=== PATIENT | female | born 1995 | race Caucasian/White ===

== ENCOUNTER 2023-09-07 20:39 | Outpatient (REF) | payer OTHER, SELFPAY ==
[2023-09-12 10:09] LABS: Age Gdln ACOG Testing Note (.); HPV Aptima Negative (Negative); IGP, Aptima HPV, rfx 16/18,45 Note (.)
== END 2023-09-07 20:40 | disposition home or self-care (01) ==
LOC: LAB 20:39
PROVIDERS: Visit Provider Physician Assistant
DX: Z01.419 Encounter for gynecological examination (general) (routine) without abnormal findings (principal)
CPT/HCPCS: 87624; G0145

== ENCOUNTER 2024-09-12 18:47 | Outpatient (REF) | payer OTHER, SELFPAY ==
--- OUTSIDE RECORDS SUMMARY | 2024-09-12 18:52 | XMS_ITS | CCD ---
Author Organization [facility] Care Team Providers Care Shank Taper Name Role Phone Kim Rincon Primary Care Physician Unavail able Mary Carmen CUELLAR Unavailable MELISSA, DR CRESPO Attending Unavailable REQUEST, NONE LISTED Primary Care Unavaila ble MELISSA, DR CRESPO Consulting Unavailable MELISSA, DR CRESPO Admitting Unavailable MELISSA, DR CRESPO Attending Unavailable REQUEST, NONE LISTED Primary Care Unavaila ble MELISSA, DR CRESPO Admitting Unavailable MELISSA, DR CRESPO Attending Unavailable REQUEST, DR NONE LISTED Primary Care Unavaila ble MELISSA, DR CRESPO Consulting Unavailable MELISSA, DR CRESPO Admitting Unavailable DANE TEMPLE Consulting Unavailable FILUTZERAVINDRA Consulting Unavailable NONE, XXXX Primary Care Physician Unavailab Lynnette Pedroza Primary Care Physician GERHARD SMALL Attending Unavailable YUKILEISA Attending Unavailable GERHARD SMALL Attending Unavailable GERHARD SMALL Attending Unavailable GERHARD SMALL Referring Unavailable GERHARD SMALL Attending Unavailable Lynnette Dean Attending Unavailable Lynnette Dean Admitting Unavailable Lynnette Dean Attending Unavailable Lynnette Dean Attending Unavailable Lynnette Dean Attending Unavailable Lynnette Dean Attending Unavailable Lynnette Dean Attending Unavailable Lynnette Dean Attending Unavailable Lynnette Dean Attending Unavailable Lynnette Dean Attending Unavailable Antoinette HAWK Attending Unavailable Medications Current Medications Medication Drug Class(es) Dates Sig (Normalized) Sig (Original) dicyclomine hydrochloride 10 mg oral capsule (1 source) Anticholinergic Start: 01-20-2023 End: 01-27-2023 take 1 capsule by mouth four times daily as needed Bentyl 10 mg Cap 10 mg = 1 cap(s), Oral, QID, PRN Irritable bowel symptoms, X 7 day(s), # 28 cap(s), Refills(s) 0, Pharmacy: [id number], 162.6, cm, 01/19/23 21:48:00 EDT, Height/Length Dosing, 75, kg, 01/19/23 21:48:00 EDT, Weight Dosing Start Date: 01/20/23 Stop Date: 01/27/23 Status: Ordered Folic Acid (3 sources) Start: 03-18-2021 folic acid folic acid Start Date: 03/18/21 Status: Ordered naproxen 500 mg delayed release oral tablet (1 source) Nonsteroidal Anti-inflammatory Drug Start: 01-20-2023 take 1 tablet by mouth twice daily as needed for pain naproxen 500 mg oral enteric coated tablet 500 mg = 1 tab(s), Oral, BID, PRN Pain, # 14 tab(s), Refills(s) 0, Pharmacy: [email or web address], 162.6, cm, 01/19/23 21:48:00 EDT, Height/Length Dosing, 75, kg, 01/19/23 21:48:00 EDT, Weight Dosing Start Date: 01/20/23 Status: Ordered phentermine hydrochloride 37.5 mg oral tablet (3 sources) Sympathomimetic Amine Anorectic Start: 01-19-2024 take 1 tablet by mouth once daily Adipex-P 37.5 mg Tab 37.5 mg = 1 tab(s), Oral, Daily, # 30 tab(s), Refills(s) 0, Pharmacy: [email or web address], 162, cm, 01/19/24 7:44:00 EDT, Height/Length Dosing, 72.9, kg, 01/19/24 7:44:00 EDT, Weight Dosing Start Date: 01/19/24 Status: Ordered Start: 12-22-2023 take 1 tablet by espinoza once daily Adipex-P 37.5 mg Tab 37.5 mg = 1 tab(s), Oral, Daily, # 30 tab(s), Refills(s) 0, Pharmacy: [email or web address], 162, cm, 12/22/23 8:12:00 EDT, Height/Length Dosing, 74.6, kg, 12/22/23 8:12:00 EDT, Weight Dosing Start Date: 12/22/23 Status: Ordered Start: 11-13-2023 take 1 tablet by espinoza th once daily Adipex-P 37.5 mg Tab 37.5 mg = 1 tab(s), Oral, Daily, # 30 tab(s), Refills(s) 0, Pharmacy: [email or web address], 162, cm, 11/13/23 9:08:00 EDT, Height/Length Dosing, 79.9, kg, 11/13/23 9:08:00 EDT, Weight Dosing Start Date: 11/13/23 Status: Ordered Zofran ODT 4 mg Tab-Dis (1 source) Start: 01-20-2023 take 1 tablet by mouth every eight hours as needed for nausea Zofran ODT 4 mg Tab-Dis 4 mg = 1 tab(s), Oral, q8hr, PRN Nausea/Vomiting, # 16 tab(s), Refills(s) 0, Pharmacy: [email or web address], 162.6, cm, 01/19/23 21:48:00 EDT, Height/Length Dosing, 75, kg, 01/19/23 21:48:00 EDT, Weight Dosing Start Date: 01/20/23 Status: Ordered Completed/Discontinued Medications Medication Drug Class(es) Dates Sig (Normalized) Sig (Original) lisdexamfetamine dimesylate 20 mg oral capsule (3 sources) Central Nervous System Stimulant Start: 07-04-2024 take 1-12 capsules by mouth once daily in the morning Vyvanse 20 mg oral capsule 20 mg = 1 cap(s), Oral, qAM, Fill on 09-01-23, # 30 cap(s), Refills(s) 0, Pharmacy: [id number], 162, cm, 07/04/24 11:06:00 EST, Height/Length Dosing, 71.3, kg, 07/04/24 11:06:00 EST, Weight Dosing Start Date: 07/04/24 Status: Ordered Start: 04-01-2024 Vyvanse 20 mg oral capsule 20 mg = 1 cap(s), Oral, qAM, Fill on 05-30-24, # 30 cap(s), Refills(s) 0, Pharmacy: [id number], 162, cm, 04/01/24 14:02:00 EDT, Height/Length Dosing, 70.2, kg, 04/01/24 14:02:00 EDT, Weight Dosing Start Date: 04/01/24 Status: Ordered Start: 02-19-2024 take 1 capsule by [facility] once daily in the morning Vyvanse 20 mg oral capsule 20 mg = 1 cap(s), Oral, qAM, # 30 cap(s), Refills(s) 0, Pharmacy: [id number], 162, cm, 02/19/24 8:06:00 EDT, Height/Length Dosing, 70.6, kg, 02/19/24 8:06:00 EDT, Weight Dosing Start Date: 02/19/24 Status: Ordered Problems Active Problems Problem Classification Problem Date Documented Da te Episodic/Chronic Abdominal pain (1 source) Abdominal pain; Translations: [Unspecified abdominal pain] Onset: 01-20-2023 Episodic Adjustment disorders (2 sources) Stress and adjustment reaction; Translations: [Reaction to severe stress, unspecified] Onset: 10-23-2023 Chronic Administrative/social admission (20 sources) Patient encounter status; Translations: [Persons encountering health services in other specified circumstances] Onset: 10-23-2023 Episodic Anxiety disorders (10 sources) Panic disorder without agoraphobia; Translations: [Panic disorder [episodic paroxysmal anxiety]] Onset: 10-23-2023 Chronic Contraceptive and procreative management (5 sources) Encounter for sterilization; Translations: [ENCOUNTER FOR STERILIZATION] Onset: 09-07-2022 Episodic Malaise and fatigue (9 sources) Fatigue; Translations: [Other fatigue] Onset: 10-23-2023 Episodic Mood disorders (8 sources) Depressive disorder; Translations: [Depression, unspecified] Onset: 12-22-2023 Chronic Nutritional deficiencies (7 sources) Vitamin D deficiency; Translations: [Vitamin D deficiency, unspecified] Onset: 11-13-2023 Chronic Other diseases of bladder and urethra (11 sources) Urethral stricture 10-15-2021 Episodic Other female genital disorders (1 source) Unspecified dyspareunia; Translations: [UNSPECIFIED DYSPAREUNIA] Onset: 09-13-2022 Chronic Other gastrointestinal disorders (4 sources) Diarrhea; Translations: [Diarrhea, unspecified] Onset: 02-19-2024 Episodic Other nutritional; endocrine; and metabolic disorders (3 sources) Obese class I; Translations: [Body mass index (BMI) 30.0-30.9, adult] Onset: 10-23-2023 Chronic Other nutritional; endocrine; and metabolic disorders (8 sources) Obesity; Translations: [Obesity, unspecified] Onset: 10-23-2023 Chronic Other nutritional; endocrine; and metabolic disorders (1 source) Abnormal weight gain; Translations: [Abnormal weight gain] Onset: 10-23-2023 Episodic Other nutritional; endocrine; and metabolic disorders (8 sources) Weight gain 10-23-2023 Episodic Other nutritional; endocrine; and metabolic disorders (5 sources) Excessive eating - polyphagia; Translations: [Polyphagia] Onset: 11-13-2023 Episodic Other nutritional; endocrine; and metabolic disorders (5 sources) Overweight in adulthood with body mass index of 25 or more but less than 30; Translations: [Body mass index (BMI) 28.0-28.9, adult] Onset: 12-22-2023 Episodic Other nutritional; endocrine; and metabolic disorders (10 sources) Overweight; Translations: [Overweight] Onset: 12-22-2023 Episodic Residual codes; unclassified (6 sources) Insomnia; Translations: [Insomnia, unspecified] Onset: 12-22-2023 Episodic Unclassified (1 source) CONTACT W/AND (SUSP) EXPOS COVID-19; Translations: [CONTACT W/AND (SUSP) EXPOS COVID-19] Onset: 09-12-2022 Unclassified (14 sources) Patient encounter status 10-23-2023 Unclassified (6 sources) Binge eating behavior 11-13-2023 Urinary tract infections (20 sources) Acute lower urinary tract infection; Translations: [Urinary tract infectious disease] 05-11-2021 Episodic Past or Other Problems Problem Classification Problem Date Documented Date Episodic/Chronic Unclassified (11 sources) Streptococcus agalactiae (organism) 12-07-2019 Unclassified (20 sources) Onset: 01-20-2012 Resolved: 05-29-2015 02-26-2015 Results Test Name Value Interpretation Reference Range Facility Ambulatory Visit Summaryon 1 1-14-2024 Ambulatory Visit Summary Ambulatory Visit Summary [facility] :1995 Visit Date:07/04/2024 Ambulatory Visit Instructions Your Diagnosis Binge eating BMI 27.0-27.9,adult Non-smoker Overweight Your Care Team Attending Physician - Lynnette Dean CNP Primary Care Physician - Lynnette Dean CNP This Is Your Medications List lisdexamfetamine (Vyvanse 20 mg oral capsule) Procedures Performed Cystoscopy, NONE. Discharge Vitals Heart Rate (Peripheral) 80 Respiratory Rate 16 Blood Pressure 108/68 Height 162 cm Height 64 in Weight 71.3 kg Weight 157.189 lb BMI 27.17 What to do next Scheduled Follow-Up Appointments Monday 9:20 AM EST With: Lynnette Dean CNP Where: [address] [address]- You Need to Schedule the Following Appointments Follow Up with Lynnette Dean CNP When: In 3 months Comments: medication review Where: Medications What How Much When Why Instructions Changed lisdexamfetamine (Vyvanse 20 mg oral capsule) 1 Capsules By Mouth Once a day (in the morning) Binge eating Fill on 09-01-23 Pickup at [email or web address] Pharmacy Information [id number]: [address], [place] [id number] [phone] Medications and Immunizations Administered Not Given influenza virus vaccine, inactivated, Postpone due to refusal Allergies No Known Allergies Problems Ongoing - Any problem that you are currently receiving treatment for. Acute lower UTI (urinary tract infection) Anxiety attack Binge eating Diarrhea Encounter for weight management Fatigue Insomnia Mild depression Overweight Stress Urethral stricture Vitamin D insufficiency Weight gain Wellness examination Historical - Any problem that you are no longer receiving treatment for. Group B streptococcus UTI Patient Survey You may receive a survey via text or e-mail asking about your office visit. Please share your experience with us by completing your survey. We appreciate your feedback and thank you for choosing us for your care. Education Materials DASH Eating Plan DASH stands for Dietary Approaches to Stop Hypertension. The DASH eating plan is a healthy eating plan that has been shown to: ??? Lower high blood pressure (hypertension). ??? Reduce your risk for type 2 diabetes, heart disease, and stroke. ??? Help with weight loss. What are tips for following this plan? Reading food labels ??? Check food labels for the amount of salt (sodium) per serving. Choose foods with less than 5 percent of the Daily Value (DV) of sodium. In general, foods with less than 300 milligrams (mg) of sodium per serving fit into this eating plan. ??? To find whole grains, look for the word whole as the first word in the ingredient list. Shopping ??? Buy products labeled as low-sodium or no salt added. ??? Buy fresh foods. Avoid canned foods and pre-made or frozen meals. Cooking ??? Try not to add salt when you cook. Use salt-free seasonings or herbs instead of table salt or sea salt. Check with your health care provider or pharmacist before using salt substitutes. ??? Do not betancur foods. Cook foods in healthy ways, such as baking, boiling, grilling, roasting, or broiling. ??? Cook using oils that are good for your heart. These include olive, canola, avocado, soybean, and sunflower oil. Meal planning ??? Eat a balanced diet. This should include: ? 4 or more servings of fruits and 4 or more servings of vegetables each day. Try to fill half of your plate with fruits and vegetables. ? 6???8 servings of whole grains each day. ? 6 or less servings of lean meat, poultry, or fish each day. 1 oz is 1 serving. A 3 oz (85 g) serving of meat is about the same size as the palm of your hand. One egg is 1 oz (28 g). ? 2???3 servings of low-fat dairy each day. One serving is 1 cup (237 mL). ? 1 serving of nuts, seeds, or beans 5 times each week. ? 2???3 servings of heart-healthy fats. Healthy fats called omega-3 fatty acids are found in foods such as walnuts, flaxseeds, fortified milks, and eggs. These fats are also found in cold-water fish, such as sardines, salmon, and mackerel. ??? Limit how much you eat of: ? Canned or prepackaged foods. ? Food that is high in trans fat, such as fried foods. ? Food that is high in saturated fat, such as fatty meat. ? Desserts and other sweets, sugary drinks, and other foods with added sugar. ? Full-fat dairy products. ??? Do not salt foods before eating. ??? Do not eat more than 4 egg yolks a week. ??? Try to eat at least 2 vegetarian meals a week. ??? Eat more home-cooked food and less restaurant, buffet, and fast food. Lifestyle ??? When eating at a restaurant, ask if your food can be made with less salt (more content not included)... Normal [facility] Family Medicine Office/Clini c Noteon 07-04-2024 Family Medicine Office/Clinic Note Family Medicine Office/Clinic Note Chief Complaint 3 month Med Review Patient reported follow-up for medication review regarding binge eating disorder. HPI Staff Patient is here for 3 month Med Review Concerns:No Refills:Vyvanse Health Maintenance: Pap:07/04/2022 Last Labs:10/23/2023 History of Present Illness The patient is a 29-year-old female presenting with a history of binge eating disorder. She has been taking Vyvanse 20 mg, which she reports has been beneficial in managing her condition. The medication has helped stabilize her weight since her last visit a couple of months ago. She reports no significant new complaints, except for mood irritability, which varies in intensity. Initially, irritability was more pronounced, but she has learned to associate it with her medication and manages it accordingly. Sleepiness was noted when the medication was first administered but has subsided with time. The patient expresses that the medication side effects are tolerable, and she feels that the benefit outweighs these adverse effects. She denies any additional issues related to her condition and confirms her non-smoker status. There have been no significant lifestyle changes, and she continues to adjust to her current treatment regimen. Review of Systems PHQ Score Initial Depression Screen Score: 0 SCORE - General: Reports mood irritability. - Neurological: Denies any changes other than occasional sleepiness. Physical Exam Vitals & Measurements HR: 80(Peripheral) RR: 16 BP: 108/68 SpO2: 98% HT: 64 in HT: 162 cm WT: 71.3 kg WT: 157.189 lb BMI: 27.17 Normal Affect. Heart and lung sounds normal. Assessment/Plan 1. Binge eating (R63.2: Polyphagia) Vyvanse 20 mg is prescribed to manage binge eating disorder. The patient reports it as effective, with manageable side effects. She is advised to continue the current regimen, and subsequent refills have been planned. The patient is encouraged to report any worsening of mood irritability. Indication of medication reviewed Binge eating Reviewed that condition still requires assistance with current medication. Reviewed that condition impacts psychological and/or physical function in daily life. Reviewed that the medication does indeed improve function/pain. Reviewed patient /provider roles in compliance. Reviewed acceptable alternatives (CBT/medication/exer cise/therapy). Reviewed need to take less dose possible for efficacy. Reviewed use, abuse and diversion of medications. Discussed need for random urine testing at least yearly. No significant interactions/side effects reported. Avoid taking medications that can increase sedation. Ordered: lisdexamfetamine, 20 mg = 1 cap(s), Oral, qAM, Fill on 09-01-23, # 30 cap(s), Refills(s) 0, Pharmacy: [id number], 162, cm, 07/04/24 11:06:00 EST, Height/Length Dosing, 71.3, kg, 07/04/24 11:06:00 EST, Weight Dosing 2. BMI 27.0-27.9,adult (Z68.27: Body mass index [BMI] 27.0-27.9, adult) The patient is advised to continue monitoring her weight. Lifestyle modifications focusing on diet and physical activity should be continued alongside pharmacological intervention for optimal results. Ordered: Body Mass Index (BMI) documented 3008F Current tobacco non-user 1036F Depression Screening Negative 3352F Influenza immunization status assessed 1030F Most recent diastolic blood pressure <80 mm Hg 3078F Systolic BP <130 mm Hg (Most Recent) 3074F 3. Non-smoker (Z78.9: Other specified health status) Continue non-smoking status which contributes positively to overall health. No interventions are needed at this time. Ordered: Body Mass Index (BMI) documented 3008F Current tobacco non-user 1036F Depression Screening Negative 3352F Influenza immunization status assessed 1030F Most recent diastolic blood pressure <80 mm Hg 3078F Systolic BP <130 mm Hg (Most Recent) 3074F 4. Overweight (E66.3: Overweight) Continuing dietary management and regular physical activity are recommended. Weight maintenance will be reviewed periodically to prevent progression to obesity. Please note that this report has been partially produced using speech recognition software and may contain errors related to that system including grammar, punctuation and spelling as well as words and phrases that may seem inappropriate. if there are questions or concerns, please feel free to contact me to clarify. Follow-up With When Contact Information Lynnette Dean CNP In 3 months Additional Instructions: medication review Patient Education DASH Eating Plan BMI for Adults Problem List/Past Medical History Ongoing Acute lower UTI (urinary tract infection) Anxiety attack Binge eating Diarrhea Encounter for weight management Fatigue Insomnia Mild depression Overweight Stress Urethral stricture Vitamin D insufficiency Weight gain Wellness examination Historical Group B streptococcus Pregn (more content not included)... Normal [facility] Comment on above: Result Comment: Elec tronically Signed By: Lynnette Dean CNP\.br\Date and Time Signed: 07/04/24 11:23 EST Ambulatory Visit Summaryon 0 04-01-2024 Ambulatory Visit Summary Ambulatory Visit Summary [facility] :1995 Visit Date:04/01/2024 Ambulatory Visit Instructions Your Diagnosis Mild depression Binge eating BMI 26.0-26.9,adult Non-smoker Overweight Your Care Team Attending Physician - Lynnette Dean CNP Primary Care Physician - Lynnette Dean CNP This Is Your Medications List lisdexamfetamine (Vyvanse 20 mg oral capsule) Procedures Performed Cystoscopy, NONE. Discharge Vitals Heart Rate (Peripheral) 86 Respiratory Rate 16 Blood Pressure 110/78 Height 162 cm Height 64 in Weight 70.2 kg Weight 154.44 lb BMI 26.75 What to do next You Need to Schedule the Following Appointments Follow Up with Lynnette Dean CNP When: In 3 months Comments: Medication review Where: Medications What How Much When Why Instructions Changed lisdexamfetamine (Vyvanse 20 mg oral capsule) 1 Capsules By Mouth Once a day (in the morning) Binge eating Fill on 05-30-24 Pickup at [email or web address] Pharmacy Information [email or web address]: [address] [place], [place] [id number] [phone] Allergies No Known Allergies Problems Ongoing - Any problem that you are currently receiving treatment for. Acute lower UTI (urinary tract infection) Anxiety attack Binge eating Diarrhea Encounter for weight management Fatigue Insomnia Mild depression Overweight Stress Urethral stricture Vitamin D insufficiency Weight gain Wellness examination Historical - Any problem that you are no longer receiving treatment for. Group B streptococcus UTI Patient Survey You may receive a survey via text or e-mail asking about your office visit. Please share your experience with us by completing your survey. We appreciate your feedback and thank you for choosing us for your care. Education Materials DASH Eating Plan DASH stands for Dietary Approaches to Stop Hypertension. The DASH eating plan is a healthy eating plan that has been shown to: ? Reduce high blood pressure (hypertension). ? Reduce your risk for type 2 diabetes, heart disease, and stroke. ? Help with weight loss. What are tips for following this plan? Reading food labels ? Check food labels for the amount of salt (sodium) per serving. Choose foods with less than 5 percent of the Daily Value of sodium. Generally, foods with less than 300 milligrams (mg) of sodium per serving fit into this eating plan. ? To find whole grains, look for the word whole as the first word in the ingredient list. Shopping ? Buy products labeled as low-sodium or no salt added. ? Buy fresh foods. Avoid canned foods and pre-made or frozen meals. Cooking ? Avoid adding salt when cooking. Use salt-free seasonings or herbs instead of table salt or sea salt. Check with your health care provider or pharmacist before using salt substitutes. ? Do not betancur foods. Cook foods using healthy methods such as baking, boiling, grilling, roasting, and broiling instead. ? Cook with heart-healthy oils, such as olive, canola, avocado, soybean, or sunflower oil. Meal planning ? Eat a balanced diet that includes: ? 4 or more servings of fruits and 4 or more servings of vegetables each day. Try to fill one-half of your plate with fruits and vegetables. ? 6?8 servings of whole grains each day. ? Less than 6 oz (170 g) of lean meat, poultry, or fish each day. A 3-oz (85-g) serving of meat is about the same size as a deck of cards. One egg equals 1 oz (28 g). ? 2?3 servings of low-fat dairy each day. One serving is 1 cup (237 mL). ? 1 serving of nuts, seeds, or beans 5 times each week. ? 2?3 servings of heart-healthy fats. Healthy fats called omega-3 fatty acids are found in foods such as walnuts, flaxseeds, fortified milks, and eggs. These fats are also found in cold-water fish, such as sardines, salmon, and mackerel. ? Limit how much you eat of: ? Canned or prepackaged foods. ? Food that is high in trans fat, such as some fried foods. ? Food that is high in saturated fat, such as fatty meat. ? Desserts and other sweets, sugary drinks, and other foods with added sugar. ? Full-fat dairy products. ? Do not salt foods before eating. ? Do not eat more than 4 egg yolks a week. ? Try to eat at least 2 vegetarian meals a week. ? Eat more home-cooked food and less restaurant, buffet, and fast food. Lifestyle ? When eating at a restaurant, ask that your food be prepared with less salt or no salt, if possible. ? If you drink alcohol: ? Limit how much you use to: ? 0?1 drink a day for women who are not . ? 0?2 drinks a day for men. ? Be aware of how much alcohol is in your drink. In the [place] one drink equals one 12 oz bottle of beer (355 mL), one 5 oz glass of wine (148 mL), or one 1? oz glass of hard liquor (44 mL). General in (more content not included)... Normal [facility] Family Medicine Office/Clini c Noteon 04-01-2024 Family Medicine Office/Clinic Note Family Medicine Office/Clinic Note Chief Complaint Med Review HPI Staff Patient is here for 1 month Med Review Concerns: No Refills:Unsure PHQ9:3 MARCI:0 Health Maintenance: Pap:Due Last Labs:10/23/2023 History of Present Illness The patient is a 29-year-old female who is here today for weight management, binge eating follow-up 6 weeks. I started her on Vyvanse after completing Adipex-P regimen and her BMI went down to 26. We had to stop the Adipex-P and started her on Vyvanse 20 mg. [facility] report reviewed and consistent with patient history. Her last refill of Vyvanse was 02/19/2024. Vital signs today are stable. She has initiated Vyvanse treatment and reports positive results, with no reported side effects. Her mood is stable, and her stress levels are manageable. She believes her current dosage is appropriate for her. She denies experiencing chest pain, pressure, palpitations, excessive sweating, or shaking. Review of Systems PHQ Score Initial Depression Screen Score: 0 SCORE All negative except as noted in the HPI. Physical Exam Vitals & Measurements HR: 86(Peripheral) RR: 16 BP: 110/78 SpO2: 99% HT: 64 in HT: 162 cm WT: 70.2 kg WT: 154.44 lb BMI: 26.75 Patient is alert and oriented to person place and time. Appears to be well-nourished. Normal affect. Heart sounds are normal without murmur, gallop or rub. Heart rate and rhythm normal. Lung sounds clear to auscultation. No chest wall pain noted. Normal respiratory effort without use of accessory muscles. Assessment/Plan 1. Mild depression (F32.A: Depression, unspecified) Her scores are much improved today. No reported down, depressed moods or significant anxiety symptoms. She is feeling well overall on Vyvanse 20 mg. OARRS report reviewed, consistent with patient history. Ordered: Body Mass Index (BMI) documented 3008F Body Mass Index (BMI) documented 3008F Current tobacco non-user 1036F Current tobacco non-user 1036F Depression Screening Negative 3352F Depression Screening Negative 3352F Influenza immunization status assessed 1030F Influenza immunization status assessed 1030F Most recent diastolic blood pressure <80 mm Hg 3078F Most recent diastolic blood pressure <80 mm Hg 3078F Systolic BP <130 mm Hg (Most Recent) 3074F Systolic BP <130 mm Hg (Most Recent) 3074F 2. Binge eating (R63.2: Polyphagia) She reports no recurrence of binge eating since stopping Adipex-P. She is taking Vyvanse 20 mg daily. She reports no chest pain, pressure, tremors, palpitations, or insomnia. We will continue Vyvanse at 20 mg. Indication of medication reviewed Binge eating disorder Reviewed that condition still requires assistance with current medication. Reviewed that condition impacts psychological and/or physical function in daily life. Reviewed that the medication does indeed improve function/pain. Reviewed patient /provider roles in compliance. Reviewed acceptable alternatives (CBT/medication/exer cise/therapy). Reviewed need to take less dose possible for efficacy. Reviewed use, abuse and diversion of medications. Discussed need for random urine testing at least yearly. No significant interactions/side effects reported. Avoid taking medications that can increase sedation. Ordered: lisdexamfetamine, 20 mg = 1 cap(s), Oral, qAM, Fill on 05-30-24, # 30 cap(s), Refills(s) 0, Pharmacy: [id number], 162, cm, 04/01/24 14:02:00 EDT, Height/Length Dosing, 70.2, kg, 04/01/24 14:02:00 EDT, Weight Dosing Body Mass Index (BMI) documented 3008F Current tobacco non-user 1036F Depression Screening Negative 3352F Influenza immunization status assessed 1030F Most recent diastolic blood pressure <80 mm Hg 3078F Systolic BP <130 mm Hg (Most Recent) 3074F 3. BMI 26.0-26.9,adult (Z68.26: Body mass index [BMI] 26.0-26.9, adult) The standard range for ages 18 and older is >=18.5 and < 25 kg/m2. Your BMI today was above this range, this falls in the overweight to obese category and there are medical benefits to weight loss. We can offer counselling, referral, and/or medical support in addressing this problem. Your BMI and weight management will be followed at subsequent visits. Ordered: Body Mass Index (BMI) documented 3008F Body Mass Index (BMI) documented 3008F Current tobacco non-user 1036F Current tobacco non-user 1036F Depression Screening Negative 3352F Depression Screening Negative 3352F Influenza immunization status assessed 1030F Influenza immunization status assessed 1030F Most recent diastolic blood pressure <80 mm Hg 3078F Most recent diastolic blood pressure <80 mm Hg 3078F Systolic BP <130 mm Hg (Most Recent) 3074F Systolic BP <130 mm Hg (Most Recent) 3074F 4. Non-smoker (Z78.9: Other specified health status) Patient non-smoker, continue to refrain from smoking. Ordered: Body Mass Index (BMI) documented 3008F Body Mass Index (BMI) documented 3008F Current tobacco non-user 1036F Current tobacco n (more content not included)... Normal [facility] Comment on above: Result Comment: Elec tronically Signed By: Lynnette Dean CNP\.br\Date and Time Signed: 04/01/24 16:24 EDT\.br\Electronically Co-Signed By: Micah Esquivel\.br\Date and Time Co-Signed: 04/01/24 15:48 EDT Ambulatory Visit Summaryon 0 02-19-2024 Ambulatory Visit Summary Ambulatory Visit Summary CAMERON PRICE :1995 Visit Date:02/19/2024 Ambulatory Visit Instructions Your Diagnosis Binge eating Encounter for weight management BMI 26.0-26.9,adult Non-smoker Overweight Diarrhea Your Care Team Attending Physician - Lynnette Dean CNP Primary Care Physician - Lynnette Dean CNP This Is Your Medications List lisdexamfetamine (Vyvanse 20 mg oral capsule) [Image Removed: STOP]Stop taking these medications phentermine (Adipex-P 37.5 mg Tab) Procedures Performed Cystoscopy, NONE. Discharge Vitals Heart Rate (Peripheral) 70 Blood Pressure 110/72 Height 162 cm Height 64 in Weight 70.6 kg Weight 155.32 lb BMI 26.9 What to do next You Need to Schedule the Following Appointments Follow Up with Lynnette Dean CNP When: In 6 weeks Comments: Medication review Where: [address] [place] [phone] Medications What How Much When Why Instructions New lisdexamfetamine (Vyvanse 20 mg oral capsule) 1 Capsules By Mouth Once a day (in the morning) Binge eating Pickup at [email or web address] Pharmacy Information [id number]: [address] [place], [place] [phone] What How Much When Why Comments Stop Taking phentermine (Adipex-P 37.5 mg Tab) 1 Tablets By Mouth Every day Binge eating Obesity BMI 30.0-30.9,adult Allergies No Known Allergies Problems Ongoing - Any problem that you are currently receiving treatment for. Acute lower UTI (urinary tract infection) Anxiety attack Binge eating Diarrhea Encounter for weight management Fatigue Insomnia Mild depression Overweight Stress Urethral stricture Vitamin D insufficiency Weight gain Wellness examination Historical - Any problem that you are no longer receiving treatment for. Group B streptococcus UTI Patient Survey You may receive a survey via text or e-mail asking about your office visit. Please share your experience with us by completing your survey. We appreciate your feedback and thank you for choosing us for your care. Education Materials DASH Eating Plan DASH stands for Dietary Approaches to Stop Hypertension. The DASH eating plan is a healthy eating plan that has been shown to: ? Reduce high blood pressure (hypertension). ? Reduce your risk for type 2 diabetes, heart disease, and stroke. ? Help with weight loss. What are tips for following this plan? Reading food labels ? Check food labels for the amount of salt (sodium) per serving. Choose foods with less than 5 percent of the Daily Value of sodium. Generally, foods with less than 300 milligrams (mg) of sodium per serving fit into this eating plan. ? To find whole grains, look for the word whole as the first word in the ingredient list. Shopping ? Buy products labeled as low-sodium or no salt added. ? Buy fresh foods. Avoid canned foods and pre-made or frozen meals. Cooking ? Avoid adding salt when cooking. Use salt-free seasonings or herbs instead of table salt or sea salt. Check with your health care provider or pharmacist before using salt substitutes. ? Do not betancur foods. Cook foods using healthy methods such as baking, boiling, grilling, roasting, and broiling instead. ? Cook with heart-healthy oils, such as olive, canola, avocado, soybean, or sunflower oil. Meal planning ? Eat a balanced diet that includes: ? 4 or more servings of fruits and 4 or more servings of vegetables each day. Try to fill one-half of your plate with fruits and vegetables. ? 6?8 servings of whole grains each day. ? Less than 6 oz (170 g) of lean meat, poultry, or fish each day. A 3-oz (85-g) serving of meat is about the same size as a deck of cards. One egg equals 1 oz (28 g). ? 2?3 servings of low-fat dairy each day. One serving is 1 cup (237 mL). ? 1 serving of nuts, seeds, or beans 5 times each week. ? 2?3 servings of heart-healthy fats. Healthy fats called omega-3 fatty acids are found in foods such as walnuts, flaxseeds, fortified milks, and eggs. These fats are also found in cold-water fish, such as sardines, salmon, and mackerel. ? Limit how much you eat of: ? Canned or prepackaged foods. ? Food that is high in trans fat, such as some fried foods. ? Food that is high in saturated fat, such as fatty meat. ? Desserts and other sweets, sugary drinks, and other foods with added sugar. ? Full-fat dairy products. ? Do not salt foods before eating. ? Do not eat more than 4 egg yolks a week. ? Try to eat at least 2 vegetarian meals a week. ? Eat more home-cooked food and less restaurant, buffet, and fast food. Lifestyle ? When eating at a restaurant, ask that your food be prepared with less salt or no salt, if possible. ? If you drink alcohol: ? Limit how much you use to: ? 0?1 drink (more content not included)... Normal [facility] Family Medicine Office/Clini c Noteon 02-19-2024 Family Medicine Office/Clinic Note Family Medicine Office/Clinic Note Chief Complaint Weight Mgmt HPI Staff Patient is here for 1 month Weight Management Concerns:No Refills:Unsure Adipex #:3 Started at 79.9 kg-175.78 lbs 1st month on medication: 74.6 kg-164.4 lbs 2nd month on medication: 72.9 kg-160.6 lbs Weight after 3rd refill:70.6 kg-155.6 lbs Sleeping well:Yes, 6-8 hours Chest pain:No Tremors:No Headaches:No Heart fluttering:No Blurred Vision:No Eating habits:Eating smaller, more frequent healthy meals Exercise:_ Blood pressure:Reviewed, _ Health Maintenance: Pap:Due Last Labs:10/23/2023 History of Present Illness The patient is a 29-year-old female who presents today for weight management follow-up. She has been on Adipex for a few months consistently. She has lost an additional 5 pounds since her last visit. She does have a history of binge eating behavior. Vital signs today are stable. OARRS reviewed and consistent with patient history. The patient has lost more weight and her BMI is 26. She has abstained from Adipex for the past 2 weeks due to a recent illness. She acknowledges that Adipex has been effective in mitigating her binge eating behavior. She still has a few weeks' worth of Adipex which she will utilize before starting Vyvanse. The patient reports severe abdominal cramping and mild diarrhea over the weekend. She questions if it is viral etiology or food poisoning. The diarrhea ceased yesterday, 02/18/2024 but she continues to experience cramping and bloating. She denies any episodes of vomiting or nausea. She has discontinued her probiotics. Review of Systems PHQ Score Initial Depression Screen Score: 0 SCORE All negative except as noted in the HPI. Physical Exam Vitals & Measurements HR: 70(Peripheral) BP: 110/72 SpO2: 99% HT: 64 in HT: 162 cm WT: 70.6 kg WT: 155.32 lb BMI: 26.9 Patient is alert and oriented to person place and time. Appears to be well-nourished. Normal affect. Heart sounds are normal without murmur, gallop or rub. Heart rate and rhythm normal. Lung sounds clear to auscultation. No chest wall pain noted. Normal respiratory effort without use of accessory muscles. Bowel sounds are normal to auscultation in all 4 quadrants. No abdominal tenderness noted. No masses, guarding or rebound. Assessment/Plan 1. Binge eating (R63.2: Polyphagia) Does very well while taking the Adipex and was staying busy but sometimes tends to return to previous habits when off of the medication. She is now under the criteria of overweight, but BMI is below 27 kg/m2. Discussed that I will no longer be able to prescribe Adipex but can switch her to Vyvanse low dose for binge eating behavior. She reports understanding. She was sick for the past 2 weeks and does have a couple weeks of Adipex left and will complete that first. She will then start the Vyvanse 20 mg daily. Follow-up in about 6 weeks to determine efficacy or any side effects. 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 I will need a medication contract and UDS in the future. Indication of medication reviewed Binge eating Reviewed that condition still requires assistance with current medication. Reviewed that condition impacts psychological and/or physical function in daily life. Reviewed that the medication does indeed improve function/pain. Reviewed patient /provider roles in compliance. Reviewed acceptable alternatives (CBT/medication/exer cise/therapy). Reviewed need to take less dose possible for efficacy. Reviewed use, abuse and diversion of medications. Discussed need for random urine testing at least yearly. No significant interactions/side effects reported. Avoid taking medications that can increase sedation. Ordered: lisdexamfetamine, 20 mg = 1 cap(s), Oral, qAM, # 30 cap(s), Refills(s) 0, Pharmacy: [email or web address], 162, cm, 02/19/24 8:06:00 EDT, Height/Length Dosing, 70.6, kg, 02/19/24 8:06:00 EDT, Weight Dosing 2. Encounter for weight management (Z76.89: Persons encountering health services in other specified circumstances) The patient initially presented for a weight management follow-up. She has lost weight very well with no reported side effects from Adipex. However, she has been ill recently. Follow-up for weight check in approximately 6 weeks. Ordered: Body Mass Index (BMI) documented 3008F Current tobacco non-user 1036F Depression Screening Negative 3352F Influenza immunization status assessed 1030F Most recent diastolic blood pressure <80 mm Hg 3078F Systolic BP <130 mm Hg (Most Recent) 3074F 3. BMI 26.0-26.9,adult (Z68.26: Body mass index [BMI] 26.0-26.9, adult) The standard range for ages 18 and older is >=18.5 and < 25 kg/m2. Your BMI today was above this range, this falls in the overweight to obese category and there are medical benefits to weight loss. We can offer counselling, referral, and/or medical support in addressing this problem. Your BMI and weight management will be followed at [facility] (more content not included)... Normal [facility] Comment on above: Result Comment: Elec tronically Signed By: Lynnette Dean CNP\.br\Date and Time Signed: 02/19/24 13:27 EDT\.br\Electronically Co-Signed By: Mandie Duncan\.br\Date and Time Co-Signed: 02/19/24 12:38 EDT Family Medicine Office/Clini c Noteon 01-19-2024 Family Medicine Office/Clinic Note Chief Complaint Weight Mgmt HPI Staff Patient is here for 1 month Weight Management Concerns:No Refills:Unsure Adipex #:2 Started at 79.9 kg-175.78 lbs 1st month on medication: 74.6 kg-164.4 lbs 2nd month on medication: 72.9 kg-160.6 lbs Sleeping well:Yes, 6-8 hours Chest pain:No Tremors:No Headaches:No Heart fluttering:No Blurred Vision:No Eating habits:Eating smaller, more frequent healthy meals Exercise:_ Blood pressure:Reviewed, _ Health Maintenance: Pap:Due Last Labs:10/23/2023 History of Present Illness Cameron Price is a 28-year-old female who is here for weight management follow-up. The patient has shown a positive reaction to her medication, with a notable reduction in stress levels. After her son's foot surgery, she faced difficulties initially but is currently stable and improving. Review of Systems PHQ Score Initial Depression Screen Score: 0 SCORE All negative except as noted in the HPI. Physical Exam Vitals & Measurements HR: 73(Peripheral) BP: 110/74 SpO2: 100% HT: 64 in HT: 162 cm WT: 72.9 kg WT: 160.38 lb BMI: 27.78 Patient is alert and oriented to person place and time. Appears to be well-nourished. Normal affect. Heart sounds are normal without murmur, gallop or rub. Heart rate and rhythm normal. Lung sounds clear to auscultation. No chest wall pain noted. Normal respiratory effort without use of accessory muscles. Assessment/Plan The patient is here for weight management encounter. 1. Mild depression (F32.A: Depression, unspecified) Depression symptoms have been in remission. Her son did well with foot surgery and has started walking again, which has helped his mood and then she feels a lot better overall. No thoughts of self, harm or harm to others. 2. Encounter for weight management (Z76.89: Persons encountering health services in other specified circumstances) Patient doing well on Adipex, lost additional 4 pounds. Her BMI now is 27.7 kg/m2. Additional month prescription given. This patient has had a longstanding history of diet modification and routine physical activity without significant loss of body weight. This patient has a BMI greater than or equal to 30 or of 27 with at least 2 Co-morbidities identified by the [place] Administrative code Chapter 4731-11. This patient has no known history of substance abuse. The patient is not per the patient report and/ or urine is negative in childbearing age women with functional reproductive organs. The patient is instructed to continue caloric intake reduction and physical activity for at least 30 minutes/day 5 days a week while taking the medication. Healthy nutrition education given and discussed. The patient is aware that the medication is prescribed on a nywxe-gx-fkenm basis and can only be given for up to 3 consecutive months before a 6-month break from weight loss medication is warranted. If the patient loses 5% of body weight within the first 90 days of taking the medication, additional prescriptions can be given on a month to month basis. I have discussed prescribed this medication with my collaborating physician and I am aware of the guidelines for prescribing Adipex. OARRS report is reviewed and consistent with patient history. Ordered: Body Mass Index (BMI) documented 3008F Current tobacco non-user 1036F Depression Screening Negative 3352F Influenza immunization status assessed 1030F Most recent diastolic blood pressure <80 mm Hg 3078F Systolic BP <130 mm Hg (Most Recent) 3074F 3. BMI 27.0-27.9,adult (Z68.27: Body mass index [BMI] 27.0-27.9, adult) The standard range for ages 18 and older is >=18.5 and < 25 kg/m2. Your BMI today was above this range, this falls in the overweight to obese category and there are medical benefits to weight loss. We can offer counselling, referral, and/or medical support in addressing this problem. Your BMI and weight management will be followed at subsequent visits. Ordered: Body Mass Index (BMI) documented 3008F Current tobacco non-user 1036F Depression Screening Negative 3352F Influenza immunization status assessed 1030F Most recent diastolic blood pressure <80 mm Hg 3078F Systolic BP <130 mm Hg (Most Recent) 3074F 4. Non-smoker (Z78.9: Other specified health status) Patient non-smoker, stable. Patient will follow up in 1 month for weight management, sooner if needed. Ordered: Body Mass Index (BMI) documented 3008F Current tobacco non-user 1036F Depression Screening Negative 3352F Influenza immunization status assessed 1030F Most recent diastolic blood pressure <80 mm Hg 3078F Systolic BP <130 mm Hg (Most Recent) 3074F 5. Overweight (E66.3: Overweight) Excess weight may lead to disease. Small changes such as drinking 3-4 liters of water or eating nutrient dense foods like lean meats, leafy green vegetables, berries, apples, avocados, lentils, sweet potatoes, and fiber reduce caloric intake. Consuming a variety of healthy (more content not included)... Normal [facility] Comment on above: Result Comment: Elec tronically Signed By: Lynnette Dean CNP\.br\Date and Time Signed: 01/19/24 10:38 EDT\.br\Electronically Co-Signed By: Dave Ro\.br\Date and Time Co-Signed: 01/19/24 10:24 EDT Patient Educationon 01-19-20 Patient Education Nutrition DASH Eating Plan DASH stands for Dietary Approaches to Stop Hypertension. The DASH eating plan is a healthy eating plan that has been shown to: ? Reduce high blood pressure (hypertension). ? Reduce your risk for type 2 diabetes, heart disease, and stroke. ? Help with weight loss. What are tips for following this plan? Reading food labels ? Check food labels for the amount of salt (sodium) per serving. Choose foods with less than 5 percent of the Daily Value of sodium. Generally, foods with less than 300 milligrams (mg) of sodium per serving fit into this eating plan. ? To find whole grains, look for the word whole as the first word in the ingredient list. Shopping ? Buy products labeled as low-sodium or no salt added. ? Buy fresh foods. Avoid canned foods and pre-made or frozen meals. Cooking ? Avoid adding salt when cooking. Use salt-free seasonings or herbs instead of table salt or sea salt. Check with your health care provider or pharmacist before using salt substitutes. ? Do not betancur foods. Cook foods using healthy methods such as baking, boiling, grilling, roasting, and broiling instead. ? Cook with heart-healthy oils, such as olive, canola, avocado, soybean, or sunflower oil. Meal planning ? Eat a balanced diet that includes: ? 4 or more servings of fruits and 4 or more servings of vegetables each day. Try to fill one-half of your plate with fruits and vegetables. ? 6?8 servings of whole grains each day. ? Less than 6 oz (170 g) of lean meat, poultry, or fish each day. A 3-oz (85-g) serving of meat is about the same size as a deck of cards. One egg equals 1 oz (28 g). ? 2?3 servings of low-fat dairy each day. One serving is 1 cup (237 mL). ? 1 serving of nuts, seeds, or beans 5 times each week. ? 2?3 servings of heart-healthy fats. Healthy fats called omega-3 fatty acids are found in foods such as walnuts, flaxseeds, fortified milks, and eggs. These fats are also found in cold-water fish, such as sardines, salmon, and mackerel. ? Limit how much you eat of: ? Canned or prepackaged foods. ? Food that is high in trans fat, such as some fried foods. ? Food that is high in saturated fat, such as fatty meat. ? Desserts and other sweets, sugary drinks, and other foods with added sugar. ? Full-fat dairy products. ? Do not salt foods before eating. ? Do not eat more than 4 egg yolks a week. ? Try to eat at least 2 vegetarian meals a week. ? Eat more home-cooked food and less restaurant, buffet, and fast food. Lifestyle ? When eating at a restaurant, ask that your food be prepared with less salt or no salt, if possible. ? If you drink alcohol: ? Limit how much you use to: ? 0?1 drink a day for women who are not . ? 0?2 drinks a day for men. ? Be aware of how much alcohol is in your drink. In the [place] one drink equals one 12 oz bottle of beer (355 mL), one 5 oz glass of wine (148 mL), or one 1? oz glass of hard liquor (44 mL). General information ? Avoid eating more than 2,300 mg of salt a day. If you have hypertension, you may need to reduce your sodium intake to 1,500 mg a day. ? Work with your health care provider to maintain a healthy body weight or to lose weight. Ask what an ideal weight is for you. ? Get at least 30 minutes of exercise that causes your heart to beat faster (aerobic exercise) most days of the week. Activities may include walking, swimming, or biking. ? Work with your health care provider or dietitian to adjust your eating plan to your individual calorie needs. What foods should I eat? Fruits All fresh, dried, or frozen fruit. Canned fruit in natural juice (without added sugar). Vegetables Fresh or frozen vegetables (raw, steamed, roasted, or grilled). Low-sodium or reduced-sodium tomato and vegetable juice. Low-sodium or reduced-sodium tomato sauce and tomato paste. Low-sodium or reduced-sodium canned vegetables. Grains Whole-grain or whole-wheat bread. Whole-grain or whole-wheat pasta. Brown rice. Oatmeal. Quinoa. Bulgur. Whole-grain and low-sodium cereals. Mary bread. Low-fat, low-sodium crackers. Whole-wheat flour tortillas. Meats and other proteins Skinless chicken or turkey. Ground chicken or turkey. Pork with fat trimmed off. Fish and seafood. Egg whites. Dried beans, peas, or lentils. Unsalted nuts, nut butters, and seeds. Unsalted canned beans. Lean cuts of beef with fat trimmed off. Low-sodium, lean precooked or cured meat, such as sausages or meat loaves. Dairy Low-fat (1%) or fat-free (skim) milk. Reduced-fat, low-fat, or fat-free cheeses. Nonfat, low-sodium ricotta or cottage cheese. Low-fat or nonfat yogurt. Low-fat, low-sodium cheese. Fats and oils Soft margarine without trans fats. Vegetable oil. Reduced-fat, low-fat, or light mayonnaise and salad dressings (reduced-sodium). Canola, safflower, olive, avocado, soybean, and sunflower oils. Avocado. Seasonings and condiments Herbs. Spices. Seasoni (more content not included)... Normal [facility] Ambulatory Visit Summaryon 0 12-22-2023 Ambulatory Visit Summary CAMERON PRICE :1995 Visit Date:12/22/2023 Ambulatory Visit Instructions Your Diagnosis Mild depression Encounter for weight management BMI 28.0-28.9,adult Overweight Non-smoker Binge eating Insomnia BMI 30.0-30.9,adult Obesity Your Care Team Attending Physician - Lynnette Dean CNP Primary Care Physician - Lynnette Dean CNP This Is Your Medications List phentermine (Adipex-P 37.5 mg Tab) Procedures Performed Cystoscopy, NONE. Discharge Vitals Heart Rate (Peripheral) 75 Respiratory Rate 16 Blood Pressure 112/74 Height 162 cm Height 64 in Weight 74.6 kg Weight 164.12 lb BMI 28.43 What to do next You Need to Schedule the Following Appointments Follow Up with Lynnette Dean CNP When: In 1 month Comments: weight management Where: [address] [place] [phone] Medications What How Much When Why Instructions Unchanged phentermine (Adipex-P 37.5 mg Tab) 1 Tablets By Mouth Every day Binge eating Obesity BMI 30.0-30.9,adult Pickup at [email or web address] Pharmacy Information [email or web address]: [address] [place], [place] [id number] [phone] Allergies No Known Allergies Problems Ongoing - Any problem that you are currently receiving treatment for. Acute lower UTI (urinary tract infection) Anxiety attack Binge eating Encounter for weight management Fatigue Insomnia Mild depression Obesity Overweight Stress Urethral stricture Vitamin D insufficiency Weight gain Wellness examination Historical - Any problem that you are no longer receiving treatment for. Group B streptococcus UTI Patient Survey You may receive a survey via text or e-mail asking about your office visit. Please share your experience with us by completing your survey. We appreciate your feedback and thank you for choosing us for your care. Education Materials DASH Eating Plan DASH stands for Dietary Approaches to Stop Hypertension. The DASH eating plan is a healthy eating plan that has been shown to: ? Reduce high blood pressure (hypertension). ? Reduce your risk for type 2 diabetes, heart disease, and stroke. ? Help with weight loss. What are tips for following this plan? Reading food labels ? Check food labels for the amount of salt (sodium) per serving. Choose foods with less than 5 percent of the Daily Value of sodium. Generally, foods with less than 300 milligrams (mg) of sodium per serving fit into this eating plan. ? To find whole grains, look for the word whole as the first word in the ingredient list. Shopping ? Buy products labeled as low-sodium or no salt added. ? Buy fresh foods. Avoid canned foods and pre-made or frozen meals. Cooking ? Avoid adding salt when cooking. Use salt-free seasonings or herbs instead of table salt or sea salt. Check with your health care provider or pharmacist before using salt substitutes. ? Do not betancur foods. Cook foods using healthy methods such as baking, boiling, grilling, roasting, and broiling instead. ? Cook with heart-healthy oils, such as olive, canola, avocado, soybean, or sunflower oil. Meal planning ? Eat a balanced diet that includes: ? 4 or more servings of fruits and 4 or more servings of vegetables each day. Try to fill one-half of your plate with fruits and vegetables. ? 6?8 servings of whole grains each day. ? Less than 6 oz (170 g) of lean meat, poultry, or fish each day. A 3-oz (85-g) serving of meat is about the same size as a deck of cards. One egg equals 1 oz (28 g). ? 2?3 servings of low-fat dairy each day. One serving is 1 cup (237 mL). ? 1 serving of nuts, seeds, or beans 5 times each week. ? 2?3 servings of heart-healthy fats. Healthy fats called omega-3 fatty acids are found in foods such as walnuts, flaxseeds, fortified milks, and eggs. These fats are also found in cold-water fish, such as sardines, salmon, and mackerel. ? Limit how much you eat of: ? Canned or prepackaged foods. ? Food that is high in trans fat, such as some fried foods. ? Food that is high in saturated fat, such as fatty meat. ? Desserts and other sweets, sugary drinks, and other foods with added sugar. ? Full-fat dairy products. ? Do not salt foods before eating. ? Do not eat more than 4 egg yolks a week. ? Try to eat at least 2 vegetarian meals a week. ? Eat more home-cooked food and less restaurant, buffet, and fast food. Lifestyle ? When eating at a restaurant, ask that your food be prepared with less salt or no salt, if possible. ? If you drink alcohol: ? Limit how much you use to: ? 0?1 drink a day for women who are not . ? 0?2 drinks a day for men. ? Be aware of how much alcohol is in your drink. In the [place] one drink equals one 12 oz bottle of beer (355 mL), one 5 oz glass of (more content not included)... Normal [facility] Family Medicine Office/Clini c Noteon 12-22-2023 Family Medicine Office/Clinic Note Chief Complaint Weight Management HPI Staff Patient is here for 1 month Weight Management Concerns:No Refills:Adipex Adipex #:1 Started at 79.9 kg-175.78 lbs 1st month on medication: 74.6 kg-164.4 Sleeping well:Yes, 6-8 hours Chest pain:No Tremors:No Headaches:No Heart fluttering:No Blurred Vision:No Eating habits:Eating smaller, more frequent healthy meals Exercise:_ Blood pressure:Reviewed, _ Health Maintenance: Pap:Due Last Labs:10/23/2023 History of Present Illness Cameron Price is a 28-year-old female who is here for weight management follow-up. Patient does have a history of some binge eating behaviors in the past, was referred to therapy, started on Adipex last month and has lost 11 pounds. OAR[place] report is reviewed and consistent with patient history. Patient is showing positive progress with Adipex, especially considering recent weather changes. Her daily step count ranges between 17,000 and 18,000, reflecting her need for significant walking due to her living situation. Dietary adjustments have been made, favoring vegetables over proteins. Despite a difficult year, exacerbated by her son's health concerns, she has managed to stabilize her anxiety levels, which initially spiked for 3 to 5 days after starting Adipex. Her sleep quality remains an issue, addressed by either taking 0.5 dose of Adipex on weekends or skipping it entirely. She inquires about potential side effects such as increased body temperature from Adipex. Review of Systems PHQ Score Initial Depression Screen Score: 0 SCORE Negative other than noted in HPI. Physical Exam Vitals & Measurements HR: 75(Peripheral) RR: 16 BP: 112/74 SpO2: 99% HT: 64 in HT: 162 cm WT: 74.6 kg WT: 164.12 lb BMI: 28.43 Patient is alert and oriented to person place and time. Appears to be well-nourished. Normal affect. Heart sounds are normal without murmur, gallop or rub. Heart rate and rhythm normal. Lung sounds clear to auscultation. No chest wall pain noted. Normal respiratory effort without use of accessory muscles. Assessment/Plan 1. Mild depression (F32.A: Depression, unspecified) The patient presents with mild depression, which has been exacerbated by her son's health issues necessitating additional procedures. Despite this, she reports managing her stress effectively. She denies any mood instability or thoughts of self-harm or harm to others. 2. Encounter for weight management (Z76.89: Persons encountering health services in other specified circumstances) The patient has experienced a weight loss of 11 pounds during the first month of Adipex, demonstrating significant progress. She reports mild side effects, including heat intolerance and insomnia, but overall, she is managing well, maintaining her regular eating routine, and increasing her physical activity in warmer weather. Second month prescription for Adipex has been provided. This patient has had a longstanding history of diet modification and routine physical activity without significant loss of body weight. This patient has a BMI greater than or equal to 30 or of 27 with at least 2 Co-morbidities identified by the [place] Administrative code Chapter 4731-11. This patient has no known history of substance abuse. The patient is not per the patient report and/ or urine is negative in childbearing age women with functional reproductive organs. The patient is instructed to continue caloric intake reduction and physical activity for at least 30 minutes/day 5 days a week while taking the medication. Healthy nutrition education given and discussed. The patient is aware that the medication is prescribed on a sjmbc-en-gunno basis and can only be given for up to 3 consecutive months before a 6-month break from weight loss medication is warranted. If the patient loses 5% of body weight within the first 90 days of taking the medication, additional prescriptions can be given on a month to month basis. I have discussed prescribed this medication with my collaborating physician and I am aware of the guidelines for prescribing Adipex. OARRS report is reviewed and consistent with patient history. 3. BMI 28.0-28.9,adult (Z68.28: Body mass index [BMI] 28.0-28.9, adult) The standard range for ages 18 and older is >=18.5 and < 25 kg/m2. Your BMI today was above this range, this falls in the overweight to obese category and there are medical benefits to weight loss. We can offer counselling, referral, and/or medical support in addressing this problem. Your BMI and weight management will be followed at subsequent visits. 4. Overweight (E66.3: Overweight) Excess weight may lead to disease. Small changes such as drinking 3-4 liters of water or eating nutrient dense foods like lean meats, leafy green vegetables, berries, apples, avocados, lentils, sweet potatoes, and fiber reduce caloric intake. Consuming a variety of healthy foods most days of the week is more sustainable than following a fad diet. In (more content not included)... Normal [facility] Comment on above: Result Comment: Elec tronically Signed By: Lynnette Dean CNP\.br\Date and Time Signed: 12/22/23 13:27 EDT\.br\Electronically Co-Signed By: Martha Szymanski\.br\Date and Time Co-Signed: 12/22/23 11:43 EDT Patient Educationon 12-22-19 Patient Education Nutrition DASH Eating Plan DASH stands for Dietary Approaches to Stop Hypertension. The DASH eating plan is a healthy eating plan that has been shown to: ? Reduce high blood pressure (hypertension). ? Reduce your risk for type 2 diabetes, heart disease, and stroke. ? Help with weight loss. What are tips for following this plan? Reading food labels ? Check food labels for the amount of salt (sodium) per serving. Choose foods with less than 5 percent of the Daily Value of sodium. Generally, foods with less than 300 milligrams (mg) of sodium per serving fit into this eating plan. ? To find whole grains, look for the word whole as the first word in the ingredient list. Shopping ? Buy products labeled as low-sodium or no salt added. ? Buy fresh foods. Avoid canned foods and pre-made or frozen meals. Cooking ? Avoid adding salt when cooking. Use salt-free seasonings or herbs instead of table salt or sea salt. Check with your health care provider or pharmacist before using salt substitutes. ? Do not betancur foods. Cook foods using healthy methods such as baking, boiling, grilling, roasting, and broiling instead. ? Cook with heart-healthy oils, such as olive, canola, avocado, soybean, or sunflower oil. Meal planning ? Eat a balanced diet that includes: ? 4 or more servings of fruits and 4 or more servings of vegetables each day. Try to fill one-half of your plate with fruits and vegetables. ? 6?8 servings of whole grains each day. ? Less than 6 oz (170 g) of lean meat, poultry, or fish each day. A 3-oz (85-g) serving of meat is about the same size as a deck of cards. One egg equals 1 oz (28 g). ? 2?3 servings of low-fat dairy each day. One serving is 1 cup (237 mL). ? 1 serving of nuts, seeds, or beans 5 times each week. ? 2?3 servings of heart-healthy fats. Healthy fats called omega-3 fatty acids are found in foods such as walnuts, flaxseeds, fortified milks, and eggs. These fats are also found in cold-water fish, such as sardines, salmon, and mackerel. ? Limit how much you eat of: ? Canned or prepackaged foods. ? Food that is high in trans fat, such as some fried foods. ? Food that is high in saturated fat, such as fatty meat. ? Desserts and other sweets, sugary drinks, and other foods with added sugar. ? Full-fat dairy products. ? Do not salt foods before eating. ? Do not eat more than 4 egg yolks a week. ? Try to eat at least 2 vegetarian meals a week. ? Eat more home-cooked food and less restaurant, buffet, and fast food. Lifestyle ? When eating at a restaurant, ask that your food be prepared with less salt or no salt, if possible. ? If you drink alcohol: ? Limit how much you use to: ? 0?1 drink a day for women who are not . ? 0?2 drinks a day for men. ? Be aware of how much alcohol is in your drink. In the [place] one drink equals one 12 oz bottle of beer (355 mL), one 5 oz glass of wine (148 mL), or one 1? oz glass of hard liquor (44 mL). General information ? Avoid eating more than 2,300 mg of salt a day. If you have hypertension, you may need to reduce your sodium intake to 1,500 mg a day. ? Work with your health care provider to maintain a healthy body weight or to lose weight. Ask what an ideal weight is for you. ? Get at least 30 minutes of exercise that causes your heart to beat faster (aerobic exercise) most days of the week. Activities may include walking, swimming, or biking. ? Work with your health care provider or dietitian to adjust your eating plan to your individual calorie needs. What foods should I eat? Fruits All fresh, dried, or frozen fruit. Canned fruit in natural juice (without added sugar). Vegetables Fresh or frozen vegetables (raw, steamed, roasted, or grilled). Low-sodium or reduced-sodium tomato and vegetable juice. Low-sodium or reduced-sodium tomato sauce and tomato paste. Low-sodium or reduced-sodium canned vegetables. Grains Whole-grain or whole-wheat bread. Whole-grain or whole-wheat pasta. Brown rice. Oatmeal. Quinoa. Bulgur. Whole-grain and low-sodium cereals. Mary bread. Low-fat, low-sodium crackers. Whole-wheat flour tortillas. Meats and other proteins Skinless chicken or turkey. Ground chicken or turkey. Pork with fat trimmed off. Fish and seafood. Egg whites. Dried beans, peas, or lentils. Unsalted nuts, nut butters, and seeds. Unsalted canned beans. Lean cuts of beef with fat trimmed off. Low-sodium, lean precooked or cured meat, such as sausages or meat loaves. Dairy Low-fat (1%) or fat-free (skim) milk. Reduced-fat, low-fat, or fat-free cheeses. Nonfat, low-sodium ricotta or cottage cheese. Low-fat or nonfat yogurt. Low-fat, low-sodium cheese. Fats and oils Soft margarine without trans fats. Vegetable oil. Reduced-fat, low-fat, or light mayonnaise and salad dressings (reduced-sodium). Canola, safflower, olive, avocado, soybean, and sunflower oils. Avocado. Seasonings and condiments Herbs. Spices. Seasoni (more content not included)... Normal [facility] Physician Referralon 024 Physician Referral [id number]# [email or web address] [facility] Family Medicine Office/Clini c Noteon 11-13-2023 Family Medicine Office/Clinic Note Chief Complaint Lab review HPI Staff Patient is here for 3 week lab review Concerns:No PHQ9:7 MARCI:1 Health Maintenance: Pap:Due Last Labs:10/23/2023 History of Present Illness Cameron Price is a 28-year-old female who is here today for a 3-week lab review. I met her recently for an established care visit in early 10/2023. She did have some increased stress at that time due to the illness of her child. We will plan to follow up on her stress levels and anxiety as well today. Blood work that was done recently shows an overall unremarkable CBC with a differential. General chemistry looks good. Overall normal kidney, liver function, and electrolytes. The cholesterol panel looks good. LDL at 112 mg/dL, HDL at 52 mg/dL. Hemoglobin A1c is good at 5.2 percent. Vitamin D is a little bit low, at 24 mg/dL. She has been experiencing some stress lately. Prior to her son's foot surgery, she began taking a vitamin from [employer], which has helped alleviate some of her symptoms and improve her mood slightly. She is managing her symptoms well. While she previously walked for 30 minutes, she now does so more purposefully, frequently with her daughter. She reports no recent occurrences of panic attacks or severe episodes. She is aware that she has been stressed about eating, particularly sugar and carbohydrates. Despite feeling full, she finds herself continuing to eat. Since her surgery, she has gained 20 to 25 pounds, primarily due to daily binge eating, typically at night. Although she is occupied during the day, food remains on her mind constantly, as she feels hungry all the time. She expresses a reluctance towards long-term therapy. In the past, she successfully reached a weight of 145 pounds but regressed after experiencing life challenges, leading to binge eating resuming. She denies any bowel issues. Review of Systems PHQ Score Initial Depression Screen Score: 1 SCORE All negative except as noted in the HPI. Physical Exam Vitals & Measurements HR: 61(Peripheral) RR: 16 BP: 112/80 SpO2: 99% HT: 64 in HT: 162 cm WT: 79.9 kg WT: 175.78 lb BMI: 30.45 Patient is alert and oriented to person place and time. Appears to be well-nourished. Normal affect. Heart sounds are normal without murmur, gallop or rub. Heart rate and rhythm normal. Lung sounds clear to auscultation. No chest wall pain noted. Normal respiratory effort without use of accessory muscles. No edema noted to bilateral lower extremities. Posterior tibial pulses palpable. Assessment/Plan 1. Stress (F43.9: Reaction to severe stress, unspecified) The patient states that she has been having a lot of stress. Her son, who has multiple medical issues, recently had surgery, and this was pretty stressful. She has been trying to walk more frequently, walking with her daughter, who rides her horse, but finds that she does not walk for at least 30 minutes, which does not really affect her stress levels. 2. Anxiety attack (F41.0: Panic disorder [episodic paroxysmal anxiety]) She has not had any significant panic attack symptoms since our established care visit about a month ago. She has started taking a supplement that has Ashwagandha Maxim's Wort, which seems to be working well for her. She feels overall that she is handling stress better, but she still has some concerns about it. 3. Vitamin D insufficiency (E55.9: Vitamin D deficiency, unspecified) I reviewed recent blood test results; vitamin D deficiency was noted. Recommend that she take an [id number] vitamin D supplement or a multivitamin that has vitamin D; about 1000 units a day would be good. 4. BMI 30.0-30.9,adult (Z68.30: Body mass index [BMI] 30.0-30.9, adult) The standard range for ages 18 and older is >=18.5 and < 25 kg/m2. Your BMI today was above this range, this falls in the overweight to obese category and there are medical benefits to weight loss. We can offer counseling, referral, and/or medical support in addressing this problem. Your BMI and weight management will be followed at subsequent visits. 5. Non-smoker (Z78.9: Other specified health status) The patient is non-smoker and stable. 6. Obesity (E66.9: Obesity, unspecified) The patient with obesity is interested in addressing some issues that she has with her eating patterns?a lot of stress eating and even to the point of binge eating. She is interested in starting a medication for temporary purposes only. We will trial Adipex. We discussed possible side effects, and you need to notify me should any significant side effects occur. We will plan to have the medication on board for about 3 months and can take it off at that time as she feels that she has a bit of graft on her eating patterns. This patient has had a longstanding history of diet modification and routine physical activity without significant loss of body weight. This patient has a BMI greater than or equal to 30 or of 27 with at least 2 Co-morbidities identified by the [place] Administrative code Chapter (more content not included)... Normal [facility] Comment on above: Result Comment: Elec tronically Signed By: Lynnette Dean CNP\.lj\Date and Time Signed: 11/13/23 15:10 EDT Patient Educationon 11-13-19 24 Patient Education Mental and Behavioral Health Managing Anxiety, Adult After being diagnosed with anxiety, you may be relieved to know why you have felt or behaved a certain way. You may also feel overwhelmed about the treatment ahead and what it will mean for your life. With care and support, you can manage this condition. How to manage lifestyle changes Managing stress and anxiety Stress is your body's reaction to life changes and events, both good and bad. Most stress will last just a few hours, but stress can be ongoing and can lead to more than just stress. Although stress can play a major role in anxiety, it is not the same as anxiety. Stress is usually caused by something external, such as a deadline, test, or competition. Stress normally passes after the triggering event has ended. Anxiety is caused by something internal, such as imagining a terrible outcome or worrying that something will go wrong that will devastate you. Anxiety often does not go away even after the triggering event is over, and it can become long-term (chronic) worry. It is important to understand the differences between stress and anxiety and to manage your stress effectively so that it does not lead to an anxious response. Talk with your health care provider or a counselor to learn more about reducing anxiety and stress. He or she may suggest tension reduction techniques, such as: ? Music therapy. Spend time creating or listening to music that you enjoy and that inspires you. ? Mindfulness-based meditation. Practice being aware of your normal breaths while not trying to control your breathing. It can be done while sitting or walking. ? Centering prayer. This involves focusing on a word, phrase, or sacred image that means something to you and brings you peace. ? Deep breathing. To do this, expand your stomach and inhale slowly through your nose. Hold your breath for 3?5 seconds. Then exhale slowly, letting your stomach muscles relax. ? Self-talk. Learn to notice and identify thought patterns that lead to anxiety reactions and change those patterns to thoughts that feel peaceful. ? Muscle relaxation. Taking time to tense muscles and then relax them. Choose a tension reduction technique that fits your lifestyle and personality. These techniques take time and practice. Set aside 5?15 minutes a day to do them. Therapists can offer counseling and training in these techniques. The training to help with anxiety may be covered by some insurance plans. Other things you can do to manage stress and anxiety include: ? Keeping a stress diary. This can help you learn what triggers your reaction and then learn ways to manage your response. ? Thinking about how you react to certain situations. You may not be able to control everything, but you can control your response. ? Making time for activities that help you relax and not feeling guilty about spending your time in this way. ? Doing visual imagery. This involves imagining or creating mental pictures to help you relax. ? Practicing yoga. Through yoga poses, you can lower tension and promote relaxation. Medicines Medicines can help ease symptoms. Medicines for anxiety include: ? Antidepressant medicines. These are usually prescribed for long-term daily control. ? Anti-anxiety medicines. These may be added in severe cases, especially when panic attacks occur. Medicines will be prescribed by a health care provider. When used together, medicines, psychotherapy, and tension reduction techniques may be the most effective treatment. Relationships Relationships can play a big part in helping you recover. Try to spend more time connecting with trusted friends and family members. ? Consider going to couples counseling if you have a partner, taking family education classes, or going to family therapy. ? Therapy can help you and others better understand your condition. How to recognize changes in your anxiety Everyone responds differently to treatment for anxiety. Recovery from anxiety happens when symptoms decrease and stop interfering with your daily activities at home or work. This may mean that you will start to: ? Have better concentration and focus. Worry will interfere less in your daily thinking. ? Sleep better. ? Be less irritable. ? Have more energy. ? Have improved memory. It is also important to recognize when your condition is getting worse. Contact your health care provider if your symptoms interfere with home or work and you feel like your condition is not improving. Follow these instructions at home: Activity ? Exercise. Adults should do the following: ? Exercise for at least 150 minutes each week. The exercise should increase your heart rate and make you sweat (moderate-intensity exercise). ? Strengthening exercises at least twice a week. ? Get the right amount and quality of sleep. Most adults need 7?9 hours of sleep each night. Lifestyle ? (more content not included)... Normal [facility] Cortisolon 10-29-2023 Cortisol [Mass/Vol] 21.5 microgram/dL High 6.2-19.4 [facility] Comment on above: Result Comment: Augustin davenport Note: The reference interval and flagging for this test is for an AM collection. If this is a PM collection please use: Cortisol PM: 2.3-11.9 Performed at: [facility] [id number] PhD Deshawn Beckham Performed By: #### 2 744928, [id number], 1158456, 5422852, 2551099, 6580180, 17862709, 4293057, 294460776, 1370048, 66932438 ####[facility] [address] [place] [address] DHEAon 10-29-2023 DHEA [Mass/Vol] 555 ng/dL Invalid Interpretation Code 63-071 [facility] Comment on above: Result Comment: This test was developed and its performance characteristics determined by [facility]. It has not been cleared or approved by the Food and Drug Administration. Performed at: [facility] [id number] MD Kam Trevino Performed By: #### 2 438821, [id number], 5282424, 0977517, 7872551, 5074138, 72471252, 9035340, 837382871, 3780423, 97111997 ####[facility] [address] [place] [address] Ambulatory Visit Summaryon 0 10-23-2023 Ambulatory Visit Summary CAMERON PRICE :1995 Visit Date:10/23/2023 Ambulatory Visit Instructions Your Diagnosis Encounter to establish care with new doctor BMI 30.0-30.9,adult Non-smoker Stress Obesity Weight gain Fatigue Anxiety attack Wellness examination Your Care Team Attending Physician - Lynnette Dean CNP Primary Care Physician - Lynnette Dean CNP This Is Your Medications List [Image Removed: STOP]Stop taking these medications Non-Formulary Medication (folic acid) naproxen (naproxen 500 mg oral enteric coated tablet) ondansetron (Zofran ODT 4 mg Tab-Dis) Procedures Performed Cystoscopy, NONE. Discharge Vitals Heart Rate (Peripheral) 79 Blood Pressure 114/78 Height 162 cm Height 64 in Weight 80.5 kg Weight 177.1 lb BMI 30.67 What to do next Scheduled Follow-Up Appointments Monday 9:00 AM EDT With: Lynnette Dean CNP Where: [facility] Ambulatory Visit Summary CAMERON PRICE :1995 Visit Date:10/23/2023 Ambulatory Visit Instructions Your Diagnosis Encounter to establish care with new doctor BMI 30.0-30.9,adult Non-smoker Stress Obesity Weight gain Fatigue Anxiety attack Wellness examination Your Care Team Attending Physician - Lynnette Dean CNP Primary Care Physician - Lynnette Dean CNP This Is Your Medications List [Image Removed: STOP]Stop taking these medications Non-Formulary Medication (folic acid) naproxen (naproxen 500 mg oral enteric coated tablet) ondansetron (Zofran ODT 4 mg Tab-Dis) Procedures Performed Cystoscopy, NONE. Discharge Vitals Heart Rate (Peripheral) 79 Blood Pressure 114/78 Height 162 cm Height 64 in Weight 80.5 kg Weight 177.1 lb BMI 30.67 What to do next Scheduled Follow-Up Appointments Monday 9:00 AM EDT With: Lynnette Dean CNP Where: [facility] CBC w/ Auto Diffon 4 Basophils/100 WBC (Bld) 1.2 % Normal 0.0-2.0 [facility] Comment on above: Performed By: #### 2 085074, 137111408, 1086764, 0091919, 2042259, 8896123, 30960558, 9729942, 132852754, 3893549, 45675770 ####[facility] [address] [place] [address] Basophils/Leukocytes Auto (Bld) [Pure # fraction] 0.1 E9/L Normal 0.0-0.2 [facility] Comment on above: Performed By: #### 2 718825, 224515037, 3892244, 3456938, 0168733, 4993285, 71005314, 5842841, 235063031, 3072188, 33179271 ####[facility] [address] [place] [address] Eosinophils (Bld) [#/Vol] 0.1 E9/L Normal 0.0-0.5 [facility] Comment on above: Performed By: #### 2 946072, 517228958, 9010668, 1861065, 1261997, 5270258, 56458997, 4312080, 248611430, 9897282, 26835641 ####[address] [place] [address] Eosinophils/100 WBC (Bld) 2.4 % Normal 0.0-8.0 [facility] Comment on above: Performed By: #### 2 934131, 627531806, 5472730, 9256241, 1100749, 9856959, 51894181, 7987723, 861265393, 7017899, 82384194 ####[address] [place] [address] Erythrocyte distribution width (RBC) [Ratio] 13.4 % Normal 10.9-14.2 [facility] Comment on above: Performed By: #### 2 096982, 389529388, 9031330, 2018951, 5924249, 8900303, 29040352, 3417600, 693922135, 9355769, 02487184 ####[address] [address] Hematocrit (Bld) [Volume fraction] 39.0 % Normal 34.0-46.0 [facility] Comment on above: Performed By: #### 2 030911, 969011390, 5970118, 2435260, 0301560, 1127050, 93201158, 7162519, 143641153, 9405763, 04470791 ####[address] [place] [address] Hemoglobin (Bld) [Mass/Vol] 13.0 g/dL Normal 12.0-16.0 [facility] Comment on above: Performed By: #### 2 958264, 984255348, 3153780, 2361137, 4508712, 9138659, 13936324, 8916165, 061121242, 6724458, 91448750 ####[address] [address] Lymphocytes (Bld) [#/Vol] 1.4 E9/L Normal 1.0-4.0 [facility] Comment on above: Performed By: #### 2 287969, 827264168, 3847044, 7026409, 5270870, 9129820, 10769929, 3909428, 626421169, 4377165, 31850614 ####[facility] [address] [place] [address] Lymphocytes/100 WBC (Bld) 21.9 % Normal 14.0-50.0 [facility] Comment on above: Performed By: #### 2 005019, 812911538, 1910675, 9046270, 9737306, 4290971, 63327323, 1094095, 450173421, 0619422, 74432224 ####[facility] [address] [place] [address] MCH (RBC) [Entitic mass] 28.7 pg Normal 27.0-34.0 [facility] Comment on above: Performed By: #### 2 763299, 628754041, 3080036, 5118546, 6727839, 9349548, 89595191, 2320574, 299101266, 8411559, 40390661 ####[facility] [address] [place] [address] MCHC (RBC) [Mass/Vol] 33.2 g/dL Normal 31.4-36.0 [facility] Comment on above: Performed By: #### 2 798693, 383376345, 6799515, 9552354, 6872089, 2041591, 18043612, 3895589, 384644470, 5776392, 67657488 ####[facility] [address] [place] [address] MCV (RBC) [Entitic vol] 86.2 fL Normal 80.0-100.0 [facility] Comment on above: Performed By: #### 2 692871, 549382030, 3546428, 5157429, 5059837, 1055993, 11535452, 2435665, 325583321, 1429099, 18269766 ####[facility] [address] [place] [address] Monocytes (Bld) [#/Vol] 0.5 E9/L Normal 0.2-1.0 [facility] Comment on above: Performed By: #### 2 847523, 469277928, 2449605, 9410357, 1130146, 3001837, 15783746, 9375345, 668119490, 2025086, 69201360 ####[facility] [address] [place] [address] Neutrophils (Bld) [#/Vol] 4.1 E9/L Normal 2.0-7.5 [facility] Comment on above: Performed By: #### 2 054858, 420945059, 9276596, 5240620, 1469798, 0901146, 56091309, 6161679, 881555055, 3706326, 25781370 ####[address] [address] Neutrophils/100 WBC (Bld) 66.3 % Normal 36.0-75.0 [facility] Comment on above: Performed By: #### 2 168591, 997011687, 8467088, 3226664, 0692722, 5373039, 89552854, 4400294, 569424696, 0367192, 64254109 ####[address] [place] [address] Platelet mean volume (Bld) [Entitic vol] 8.6 fL Normal 6.4-10.8 [facility] Comment on above: Performed By: #### 2 169537, 116315452, 9603354, 7423604, 6942854, 8381673, 15376729, 4421181, 512068304, 9782914, 55416933 ####[address] [place] [address] Platelets (Bld) [#/Vol] 275.0 E9/L Normal 150.0-500.0 [facility] Comment on above: Performed By: #### 2 111318, 054263251, 0686396, 2517065, 7184954, 0951468, 54872990, 3676102, 169462539, 9943579, 15343960 ####[facility] [address] [place] [address] RBC (Bld) [#/Vol] 4.5 E12/L Normal 4.3-5.9 [facility] Comment on above: Performed By: #### 2 413553, 915094203, 4595235, 9782739, 4893986, 3518533, 40214859, 3200482, 480287587, 0821274, 91588151 ####[facility] [address] [place] [address] WBC corrected for nucl RBC Auto (Bld) [#/Vol] 6.2 E9/L Normal 4.0-11.0 [facility] Comment on above: Performed By: #### 2 230363, 787150568, 8040949, 8578518, 3029173, 6045925, 23273730, 8559048, 940636417, 1412167, 77343220 ####[facility] [address] [place] [address] CHEMISTRYOrdered By: SYSTEM SYSTEM on 10-23-2023 25-hydroxyvitamin D3 [Mass/Vol] 24.1 ng/mL Low 30.0 - 100.0 ng/mL [facility] Albumin [Mass/Vol] 4.2 g/dL Normal 3.3 - 5.0 gm/dL [facility] Albumin/Globulin [Mass ratio] 1.8 {ratio} Normal 1.1 - 2.2 [facility] ALP [Catalytic activity/Vol] 47 [iU]/d Normal 21 - 98 Int._Unit/L [facility] ALT No additional P-5'-P [Catalytic activity/Vol] 13 [iU]/d Normal 6 - 46 Int._Unit/L [facility] Anion gap [Moles/Vol] 12 mmol/L Normal 6 - 16 mEq/L R emisol Chem AST [Catalytic activity/Vol] 14 [iU]/d Normal 5 - 43 Int._Unit/L [facility] Bilirubin [Mass/Vol] 0.5 mg/dL Normal 0.0 - 1 .1 mg/dL [facility] Calcium [Mass/Vol] 9.0 mg/dL Normal 8.9 - 11. 1 mg/dL [facility] Chloride [Moles/Vol] 105 mmol/L Normal 101 - 1 11 mmol/L [facility] Cholesterol [Mass/Vol] 179 mg/dL Normal 120 - 200 mg/dL [facility] Cholesterol in HDL [Mass/Vol] 52 mg/dL Invalid Interpretation Code [facility] Comment on above: Result Comment: '>= 60 LOW RISK' '<= 40 HIGH RISK' Cholesterol in LDL [Mass/Vol] 112 mg/dL Normal <=129mg/dL [facility] Cholesterol in VLDL [Mass/Vol] 24 mg/dL Normal 7 - 40 mg/dL [facility] CO2 [Moles/Vol] 26 mmol/L Normal 21 - 31 mmol/L [facility] Cobalamin (Vitamin B12) [Mass/Vol] 431 pg/mL Normal 50 - 1500 pg/mL [facility] Creatinine [Mass/Vol] 0.8 mg/dL Normal 0.5 - 1.3 mg/dL [facility] eGFR 101 mL/min/1.73 m2 Normal >=59mL/mi n/1. 73 m2 [facility] Folate [Mass/Vol] 16.2 ng/mL Normal >=6.7ng/mL [facility] Globulin (S) [Mass/Vol] 2.4 g/dL Normal 1.4 - 4.0 gm/dL [facility] Glucose [Mass/Vol] 98 mg/dL Normal 55 - 199 mg/dL [facility] Potassium [Moles/Vol] 4.1 mmol/L Normal 3.5 - 5.3 mmol/L [facility] Protein [Mass/Vol] 6.6 g/dL Normal 6.0 - 7.8 gm/dL [facility] Sodium [Moles/Vol] 139 mmol/L Normal 135 - 145 mmol/L [facility] Triglyceride [Mass/Vol] 118 mg/dL Normal <=149mg/dL [facility] TSH Qn 2.50 m[IU]/L Normal 0.34 - 5.60 mcIU/mL [facility] Urea nitrogen [Mass/Vol] 13 mg/dL Normal 5 - 21 mg/dL [facility] Urea nitrogen/Creatinine [Mass ratio] 16 mg/mg Normal 10 - 20 [facility] CHEMISTRYOrdered By: Britt Barrett on 10-23-2023 HbA1c (Bld) [Mass fraction] 5.2 % Normal <=5.9% [facility] [place] ChemAutoSS CMPon 10-23-2023 Albumin [Mass/Vol] 4.2 g/dL Normal 3.3-5.0 [facility] Comment on above: Performed By: #### 2 114157, 557744143, 7481491, 1308784, 8077745, 6046317, 69778966, 0736390, 519701806, 4386706, 62809135 ####[facility] [address] [place] [address] Albumin/Globulin (S) [Mass conc ratio] 1.8 Normal 1.1-2.2 [facility] Comment on above: Performed By: #### 2 200284, 338296839, 5663960, 9420247, 7521809, 0413238, 25865413, 5862897, 583489189, 2099518, 85683542 ####[facility] [address] [place] [address] ALP [Catalytic activity/Vol] 47 Int._Unit/L Normal 21-98 [facility] Comment on above: Performed By: #### 2 797155, 148935385, 8950088, 1896701, 4128411, 8687578, 55628691, 1217684, 183621564, 5210022, 03089735 ####[facility] [address] [place] [address] ALT No additional P-5'-P [Catalytic activity/Vol] 13 Int._Unit/L Normal 6-46 [facility] Comment on above: Performed By: #### 2 842028, 442561874, 2766999, 0895789, 1281285, 6208658, 95523078, 3612047, 196609923, 5353384, 98214825 ####[facility] [address] [place] [address] Anion gap [Moles/Vol] 12 mmol/L Normal 6-16 [facility] Comment on above: Performed By: #### 2 831885, 618855865, 6413782, 4622701, 8229399, 1720726, 64416541, 5720204, 199868904, 0858471, 16370131 ####[facility] [address] [place] [address] AST [Catalytic activity/Vol] 14 Int._Unit/L Normal 5-43 [facility] Comment on above: Performed By: #### 2 253330, 720008811, 4591452, 3332125, 3317936, 6915842, 82261380, 7522071, 142094556, 5367724, 34812581 ####[address] [place] [address] Bilirubin [Mass/Vol] 0.5 mg/dL Normal 0.0-1.1 [facility] Comment on above: Performed By: #### 2 669244, 718056063, 0693411, 7540922, 9656484, 9328496, 89578504, 8075542, 189812736, 8137480, 84534997 ####[address] [place] [address] Calcium [Mass/Vol] 9.0 mg/dL Normal 8.9-11.1 [facility] Comment on above: Performed By: #### 2 854220, 012245761, 3733558, 1418935, 4132619, 5745395, 25632289, 7211033, 777584537, 0538664, 67571111 ####[facility] [address] [place] [address] Chloride [Moles/Vol] 105 mmol/L Normal 101-111 [facility] Comment on above: Performed By: #### 2 823663, 457178965, 9036419, 3049469, 3736436, 6860507, 94038847, 1496163, 841857406, 1996103, 67569590 ####[facility] [address] [place] [address] CO2 [Moles/Vol] 26 mmol/L Normal 21-31 [facility] Comment on above: Performed By: #### 2 897570, 869642696, 4418518, 0563946, 8361295, 7203261, 54036733, 2760564, 149990722, 5328544, 04444583 ####[facility] [address] [place] [address] Creatinine [Mass/Vol] 0.8 mg/dL Normal 0.5-1.3 [facility] Comment on above: Performed By: #### 2 701066, 203284636, 5689830, 5134212, 7935361, 6140696, 12216738, 8036199, 543575082, 8118838, 05525843 ####[facility] [address] [place] [address] Globulin (S) [Mass/Vol] 2.4 g/dL Normal 1.4-4.0 [facility] Comment on above: Performed By: #### 2 666277, 224276006, 2505309, 2450076, 5195055, 2523667, 01497767, 3231663, 066954999, 5991008, 35013942 ####[facility] [address] [place] [address] Glucose [Mass/Vol] 98 mg/dL Normal 55-199 [facility] Comment on above: Performed By: #### 2 176704, 426589524, 6364195, 4838844, 6284885, 7104934, 45786812, 7559737, 884397652, 3379394, 20992735 ####[facility] [address] [place] [address] Potassium [Moles/Vol] 4.1 mmol/L Normal 3.5-5.3 [facility] Comment on above: Performed By: #### 2 741072, 292377071, 5199459, 9018991, 3553016, 0676168, 70697640, 6827510, 112346250, 7378085, 10388037 ####[facility] [address] [place] [address] Protein [Mass/Vol] 6.6 g/dL Normal 6.0-7.8 [facility] Comment on above: Performed By: #### 2 209288, 864276604, 9296808, 2959684, 5301952, 9474017, 79614415, 0377977, 524673078, 5317090, 94582542 ####[facility] [address] [place] [address] Sodium [Moles/Vol] 139 mmol/L Normal 135-145 [facility] Comment on above: Performed By: #### 2 748756, 037217956, 5851960, 1614026, 1342982, 2676280, 17026534, 4004647, 731567452, 2407548, 51547814 ####[facility] [address] [place] [address] Urea nitrogen [Mass/Vol] 13 mg/dL Normal 5-21 [facility] Comment on above: Performed By: #### 2 724644, 544930806, 8060205, 4899031, 8620651, 0397700, 26000911, 8937382, 025508905, 5212702, 12980968 ####[facility] [address] [place] [address] Urea nitrogen/Creatinine [Mass ratio] 16 No Units Normal 10-20 [facility] Comment on above: Performed By: #### 2 041071, 176776720, 2616030, 3331040, 3111420, 2163661, 24116973, 4065517, 907927001, 3951727, 89104719 ####[facility] [address] [place] [address] Family Medicine Office/Clini c Noteon 10-23-2023 Family Medicine Office/Clinic Note Chief Complaint Establish Care HPI Staff Establish Care: History: Any previous diagnosis: When was your last doctors visit:Over a year ago Last provider:Kim Rincon NP Any recent labs:01/19/2023 Health Maintenance UTD: Pelvic/Pap:Due Acute: Current issues/complaints:St ress management History of Present Illness Cameron Price is a 28-year-old female who is here today to establish care. We would like to discuss stress management today. She is not currently taking any medication. Vital signs, they are stable. She is to follow with a provider at this office years ago. The patient is experiencing significant stress due to her son's health concerns. Her 8-year-old son is diagnosed with epilepsy and underwent a hemesperotomy in 04/2023. On 10/25/2023, he is scheduled for foot surgery and will be wheelchair bound post-procedure. She has not had any blood work done. She reports frequent episodes of emotional exhaustion, which she describes as sudden shutdowns, and has not undergone thyroid evaluation. She has experienced weight gain due to lack of motivation to engage in activities. She experiences moodiness, headaches, and fatigue, but unable to fall asleep despite attempts. Her mind remains active indicating difficulty in relaxation. She reports waking up once during the night. She denies any recent history of stress, anxiety, or depressive symptoms. She is fasting today. Her menstrual cycle has been regular, but irregularities have been noted over the past 2 months. She is experiencing accelerated heart rate and palpitations during emotional distress. Occasionally, she may feel brief fluttering sensations or momentarily cessation in her heartbeat, occurring at random. She has strong support around her. She engages in daily walks with her daughter. She denies any abdominal issues. She has a daughter. Review of Systems PHQ Score Initial Depression Screen Score: 0 SCORE All negative except as noted in the HPI. Physical Exam Vitals & Measurements HR: 79(Peripheral) BP: 114/78 SpO2: 100% HT: 64 in HT: 162 cm WT: 80.5 kg WT: 177.1 lb BMI: 30.67 Patient is alert and oriented to person place and time. Appears to be well-nourished. Normal affect. Neck is supple no adenopathy noted. No enlarged thyroid detected. Heart sounds are normal without murmur, gallop or rub. Heart rate and rhythm normal. Lung sounds clear to auscultation. No chest wall pain noted. Normal respiratory effort without use of accessory muscles. Assessment/Plan 1. Encounter to establish care with new doctor (Z76.89: Persons encountering health services in other specified circumstances) The patient is establishing care with me today. No previous records available, but the patient denies any medical or behavioral health history. She is not currently taking any medication. 2. BMI 30.0-30.9,adult (Z68.30: Body mass index [BMI] 30.0-30.9, adult) The standard range for ages 18 and older is >=18.5 and < 25 kg/m2. Your BMI today was above this range, this falls in the overweight to obese category and there are medical benefits to weight loss. We can offer counselling, referral, and/or medical support in addressing this problem. Your BMI and weight management will be followed at subsequent visits. 3. Non-smoker (Z78.9: Other specified health status) The patient is a non-smoker, stable. 4. Stress (F43.9: Reaction to severe stress, unspecified) The patient has not been under a lot more stress lately. Her 30-year-old son has a lot of medical issues, seizure disorder, recently had surgery, will be requiring a different surgery and is currently wheelchair bound. She has been incorporating some stress reduction techniques, but wonders if something more might be going on with other symptoms. I will get some blood work today. 5. Obesity (E66.9: Obesity, unspecified) Excess weight may lead to disease. Small changes such as drinking 3-4 liters of water or eating nutrient dense foods like lean meats, leafy green vegetables, berries, apples, avocados, lentils, sweet potatoes, and fiber reduce caloric intake. Consuming a variety of healthy foods most days of the week is more sustainable than following a fad diet. Increasing physical activity to 150 minutes of walking/strength training per week and sleeping 7-9 hours per day reduces cortisol and insulin levels that contribute to weight gain. 6. Weight gain (R63.5: Abnormal weight gain) With weight gain, we will check cortisol, DHEA levels, and thyroid levels. 7. Fatigue (R53.83: Other fatigue) With fatigue, we'll check vitamin B12 and D levels as well as folic acid levels and blood cell counts. 8. Anxiety attack (F41.0: Panic disorder [episodic paroxysmal anxiety]) With panic anxiety attacks that she is likely having. She is encouraged to try to find time for herself every day, at least a couple of minutes. She will continue deep breathing exercises, trying to get healthy physical activity in. We plan to touch base again in a couple of (more content not included)... Normal [facility] Comment on above: Result Comment: Elec tronically Signed By: Lynnette Dean CNP\.br\Date and Time Signed: 10/23/23 11:00 EST\.br\Electronically Co-Signed By: Denisse Moyer\.br\Date and Time Co-Signed: 10/23/23 10:37 EST Folateon 10-23-2023 Folate [Mass/Vol] 16.2 ng/mL Normal >=6.7 [facility] Comment on above: Performed By: #### 2 788522, 634621442, 8480693, 8212049, 4324221, 7561516, 73200949, 5066419, 550568698, 8330095, 69390715 ####[facility] [address] [place] [address] HEMATOLOGYOrdered By: SYSTEM SYSTEM on 10-23-2023 Basophils/100 WBC (Bld) 1.2 % Normal 0.0 - 2.0 % [facility]e Basophils/Leukocytes Auto (Bld) [Pure # fraction] 0.1 E9/L Normal 0.0 - 0.2 E9/L [facility] Eosinophils (Bld) [#/Vol] 0.1 E9/L Normal 0.0 - 0.5 E9/L [facility] Eosinophils/100 WBC (Bld) 2.4 % Normal 0.0 - 8.0 % [facility] Erythrocyte distribution width (RBC) [Ratio] 13.4 % Normal 10.9 - 14.2 % [facility] Hematocrit (Bld) [Volume fraction] 39.0 % Normal 34.0 - 46.0 % [facility] Hemoglobin (Bld) [Mass/Vol] 13.0 g/dL Normal 12.0 - 16.0 gm/dL [facility] Lymphocytes (Bld) [#/Vol] 1.4 E9/L Normal 1.0 - 4.0 E9/L [facility] Lymphocytes/100 WBC (Bld) 21.9 % Normal 14.0 - 50.0 % [facility] MCH (RBC) [Entitic mass] 28.7 pg Normal 27.0 - 34.0 pg [facility] MCHC (RBC) [Mass/Vol] 33.2 g/dL Normal 31.4 - 36.0 gm/dL [facility] MCV (RBC) [Entitic vol] 86.2 fL Normal 80.0 - 100.0 fL [facility] Monocytes (Bld) [#/Vol] 0.5 E9/L Normal 0.2 - 1.0 E9/L [facility] Monocytes/100 WBC (Bld) 8.2 % Normal 4.0 - 14.0 % [facility] Neutrophils (Bld) [#/Vol] 4.1 E9/L Normal 2.0 - 7.5 E9/L [facility] Neutrophils/100 WBC (Bld) 66.3 % Normal 36.0 - 75.0 % Remisol Heme Platelet mean volume (Bld) [Entitic vol] 8.6 fL Normal 6.4 - 10.8 fL [facility] Heme Platelets (Bld) [#/Vol] 275.0 E9/L Normal 150.0 - 500.0 E9/L [facility] Heme RBC (Bld) [#/Vol] 4.5 E12/L Normal 4.3 - 5.9 E12/L [facility] Heme WBC corrected for nucl RBC Auto (Bld) [#/Vol] 6.2 E9/L Normal 4.0 - 11.0 E9/L [facility] Heme [id number] 10-23-2023 HbA1c (Bld) [Mass fraction] 5.2 % Normal <=5.9 [facility] Comment on above: Performed By: #### 2 [id number], [id number], 1665522, 4941885, 7363873, 0355022, 38439468, 0254196, 181039888, 3131762, 78238896 ####[facility] [address] [place] [address] Lipid Panelon 10-23-2023 Cholesterol [Mass/Vol] 179 mg/dL Normal 120-200 [facility] Comment on above: Performed By: #### 2 772731, [id number], 1338651, 8179600, 1415117, 1364426, 45573245, 0904335, [id number], 8446041, 20806431 ####[facility] [address] [place] [address] Cholesterol in HDL [Mass/Vol] 52 mg/dL Invalid Interpretation Code [facility] Comment on above: Result Comment: '>= 60 LOW RISK' '<= 40 HIGH RISK' Performed By: #### 2 274720, [id number], 3746297, 5762651, 3057368, 2513931, 57207063, 8450313, 528751435, 2426978, 67880211 ####[facility] [address] [place] [address] Cholesterol in LDL [Mass/Vol] 112 mg/dL Normal <=129 [facility] Comment on above: Performed By: #### 2 687341, [id number], 9373409, 2464473, 3786727, 7873783, 36436686, 0286296, 266751718, 7962089, 43079920 ####[facility] [address] [place] [address] Cholesterol in VLDL [Mass/Vol] 24 mg/dL Normal 7-40 [facility] Comment on above: Performed By: #### 2 098946, [id number], 5181696, 3754139, 3810284, 4960303, 44901211, 8736868, 692347876, 9689400, 27612601 ####[facility] [address] [place] [address] Triglyceride [Mass/Vol] 118 mg/dL Normal <=149 [facility] Comment on above: Performed By: #### 2 378601, [id number], 5220422, 1925383, 1445835, 1779654, 66187302, 8582149, 025571265, 0764757, 24526034 ####[facility] [address] [place] [address] Patient Educationon 10-23-19 Patient Education Nutrition DASH Eating Plan DASH stands for Dietary Approaches to Stop Hypertension. The DASH eating plan is a healthy eating plan that has been shown to: ? Reduce high blood pressure (hypertension). ? Reduce your risk for type 2 diabetes, heart disease, and stroke. ? Help with weight loss. What are tips for following this plan? Reading food labels ? Check food labels for the amount of salt (sodium) per serving. Choose foods with less than 5 percent of the Daily Value of sodium. Generally, foods with less than 300 milligrams (mg) of sodium per serving fit into this eating plan. ? To find whole grains, look for the word whole as the first word in the ingredient list. Shopping ? Buy products labeled as low-sodium or no salt added. ? Buy fresh foods. Avoid canned foods and pre-made or frozen meals. Cooking ? Avoid adding salt when cooking. Use salt-free seasonings or herbs instead of table salt or sea salt. Check with your health care provider or pharmacist before using salt substitutes. ? Do not betancur foods. Cook foods using healthy methods such as baking, boiling, grilling, roasting, and broiling instead. ? Cook with heart-healthy oils, such as olive, canola, avocado, soybean, or sunflower oil. Meal planning ? Eat a balanced diet that includes: ? 4 or more servings of fruits and 4 or more servings of vegetables each day. Try to fill one-half of your plate with fruits and vegetables. ? 6?8 servings of whole grains each day. ? Less than 6 oz (170 g) of lean meat, poultry, or fish each day. A 3-oz (85-g) serving of meat is about the same size as a deck of cards. One egg equals 1 oz (28 g). ? 2?3 servings of low-fat dairy each day. One serving is 1 cup (237 mL). ? 1 serving of nuts, seeds, or beans 5 times each week. ? 2?3 servings of heart-healthy fats. Healthy fats called omega-3 fatty acids are found in foods such as walnuts, flaxseeds, fortified milks, and eggs. These fats are also found in cold-water fish, such as sardines, salmon, and mackerel. ? Limit how much you eat of: ? Canned or prepackaged foods. ? Food that is high in trans fat, such as some fried foods. ? Food that is high in saturated fat, such as fatty meat. ? Desserts and other sweets, sugary drinks, and other foods with added sugar. ? Full-fat dairy products. ? Do not salt foods before eating. ? Do not eat more than 4 egg yolks a week. ? Try to eat at least 2 vegetarian meals a week. ? Eat more home-cooked food and less restaurant, buffet, and fast food. Lifestyle ? When eating at a restaurant, ask that your food be prepared with less salt or no salt, if possible. ? If you drink alcohol: ? Limit how much you use to: ? 0?1 drink a day for women who are not . ? 0?2 drinks a day for men. ? Be aware of how much alcohol is in your drink. In the [place] one drink equals one 12 oz bottle of beer (355 mL), one 5 oz glass of wine (148 mL), or one 1? oz glass of hard liquor (44 mL). General information ? Avoid eating more than 2,300 mg of salt a day. If you have hypertension, you may need to reduce your sodium intake to 1,500 mg a day. ? Work with your health care provider to maintain a healthy body weight or to lose weight. Ask what an ideal weight is for you. ? Get at least 30 minutes of exercise that causes your heart to beat faster (aerobic exercise) most days of the week. Activities may include walking, swimming, or biking. ? Work with your health care provider or dietitian to adjust your eating plan to your individual calorie needs. What foods should I eat? Fruits All fresh, dried, or frozen fruit. Canned fruit in natural juice (without added sugar). Vegetables Fresh or frozen vegetables (raw, steamed, roasted, or grilled). Low-sodium or reduced-sodium tomato and vegetable juice. Low-sodium or reduced-sodium tomato sauce and tomato paste. Low-sodium or reduced-sodium canned vegetables. Grains Whole-grain or whole-wheat bread. Whole-grain or whole-wheat pasta. Brown rice. Oatmeal. Quinoa. Bulgur. Whole-grain and low-sodium cereals. Mary bread. Low-fat, low-sodium crackers. Whole-wheat flour tortillas. Meats and other proteins Skinless chicken or turkey. Ground chicken or turkey. Pork with fat trimmed off. Fish and seafood. Egg whites. Dried beans, peas, or lentils. Unsalted nuts, nut butters, and seeds. Unsalted canned beans. Lean cuts of beef with fat trimmed off. Low-sodium, lean precooked or cured meat, such as sausages or meat loaves. Dairy Low-fat (1%) or fat-free (skim) milk. Reduced-fat, low-fat, or fat-free cheeses. Nonfat, low-sodium ricotta or cottage cheese. Low-fat or nonfat yogurt. Low-fat, low-sodium cheese. Fats and oils Soft margarine without trans fats. Vegetable oil. Reduced-fat, low-fat, or light mayonnaise and salad dressings (reduced-sodium). Canola, safflower, olive, avocado, soybean, and sunflower oils. Avocado. Seasonings and condiments Herbs. Spices. Seasoni (more content not included)... Normal [facility] TSHon 10-23-2023 TSH Qn 2.50 m[IU]/L Normal 0.34-5.60 [facility] Comment on above: Performed By: #### 2 320897, [id number], 7492027, 8523252, 7475814, 7177632, 64487807, 5590520, 063469239, 5422545, 09537075 ####[facility] [address] [place] [address] Vit B12on 10-23-2023 Cobalamin (Vitamin B12) [Mass/Vol] 431 pg/mL Normal 50-1500 [facility] Comment on above: Performed By: #### 2 328540, 163092263, 9785579, 0616876, 8349511, 1062723, 52410667, 7474770, 004488004, 3663890, 20448211 ####[facility] [address] [place] [address] Vitamin D 25 Hydroxyon 10-22 25-hydroxyvitamin D3 [Mass/Vol] 24.1 ng/mL Low 30.0-100.0 [facility] Comment on above: Performed By: #### 2 372155, 855352308, 4680071, 4417389, 1861584, 8601479, 24871937, 7875194, 795349397, 5330325, 47584449 ####[facility] [address] [place] [address] eGFRon 10-23-2023 eGFR 101 mL/min/1.73 m2 Normal >=59 [facility] Comment on above: Order Comment: Order added by Discern Expert. Performed By: #### 2 784267, [id number], 6748563, 6991146, 0771136, 4195790, 04809216, 1097613, 345617665, 9989858, 25099599 ####[facility] [address] [place] [address] Consultation Noteon 08-08-20 Consultation Note [id number] #[id number] Normal [facility] CHEMISTRYOrdered By: SYSTEM SYSTEM on 01-19-2023 Albumin [Mass/Vol] 4.1 g/dL Normal 3.3 - 5.0 gm/dL FT Remisol Albumin/Globulin [Mass ratio] 1.3 {ratio} Normal 1.1 - 2.2 [facility] Remisol ALP [Catalytic activity/Vol] 52 [iU]/d Normal 21 - 98 Int._Unit/L [facility] Remisol ALT No additional P-5'-P [Catalytic activity/Vol] 19 [iU]/d Normal 6 - 46 Int._Unit/L [facility]isol Anion gap [Moles/Vol] 12 mmol/L Normal 6 - 16 mEq/L [facility] Remisol AST [Catalytic activity/Vol] 21 [iU]/d Normal 5 - 43 Int._Unit/L [facility]isol Bilirubin [Mass/Vol] 0.6 mg/dL Normal 0.0 - 1 .1 mg/dL [facility] Remisol Bilirubin.direct [Mass/Vol] 0.1 mg/dL Normal 0.1 - 0.4 mg/dL [facility] Remisol Bilirubin.indirect [Mass or moles/Vol] 0.5 mg/dL Normal 0.1 - 0.9 mg/dL [facility]isol Calcium [Mass/Vol] 9.2 mg/dL Normal 8.9 - 11. 1 mg/dL [facility] Chloride [Moles/Vol] 106 mmol/L Normal 101 - 1 11 mmol/L [facility] CO2 [Moles/Vol] 25 mmol/L Normal 21 - 31 mmol/L [facility]isol Creatinine [Mass/Vol] 0.9 mg/dL Normal 0.5 - 1.3 mg/dL [facility] GFR/1.73 sq M.predicted among non-blacks MDRD (S/P/Bld) [Vol rate/Area] 89 mL/min/1.73 m2 Normal >=59mL/min/1. 73 m2 FT Chem S Globulin (S) [Mass/Vol] 3.1 g/dL Normal 1.4 - 4.0 gm/dL [facility] Glucose [Mass/Vol] 110 mg/dL Normal 55 - 199 mg/dL [facility] Lipase [Catalytic activity/Vol] 32 U/L Normal 13 - 58 unit/L [facility] Potassium [Moles/Vol] 3.4 mmol/L Low 3.5 - 5.3 mmol/L [facility]isol Protein [Mass/Vol] 7.2 g/dL Normal 6.0 - 7.8 gm/dL [facility] Sodium [Moles/Vol] 140 mmol/L Normal 135 - 145 mmol/L [facility] Urea nitrogen [Mass/Vol] 12 mg/dL Normal 5 - 21 mg/dL [facility] Urea nitrogen/Creatinine [Mass ratio] 13 mg/mg Normal 10 - 20 [facility] HEMATOLOGYOrdered By: SYSTEM SYSTEM on 01-19-2023 Basophils/100 WBC (Bld) 1.4 % Normal 0.0 - 2.0 % [facility] HemeAutoSS Basophils/Leukocytes Auto (Bld) [Pure # fraction] 0.1 E9/L Normal 0.0 - 0.2 E9/L [facility] HemeAutoSS Eosinophils/100 WBC (Bld) 1.4 % Normal 0.0 - 8.0 % [facility] HemeAutoSS Eosinophils/Leukocyte s Auto (Bld) [Pure # fraction] 0.1 E9/L Normal 0.0 - 0.5 E9/L [facility] HemeAutoSS Lymphocytes/100 WBC (Bld) 21.8 % Normal 14.0 - 50.0 % [facility] HemeAutoSS Lymphocytes/Leukocyte s Auto (Bld) [Pure # fraction] 2.1 E9/L Normal 1.0 - 4.0 E9/L [facility] HemeAutoSS Monocytes/100 WBC (Bld) 8.5 % Normal 4.0 - 14.0 % [facility] HemeAutoSS Monocytes/Leukocytes Auto (Bld) [Pure # fraction] 0.8 E9/L Normal 0.2 - 1.0 E9/L [facility] HemeAutoSS Neutrophils/100 WBC (Bld) 66.9 % Normal 36.0 - 75.0 % [facility] HemeAutoSS Neutrophils/Leukocyte s Auto (Bld) [Pure # fraction] 6.3 E9/L Normal 2.0 - 7.5 E9/L [facility] HemeAutoSS HEMATOLOGYOrdered By: José Jc on 01-19-2023 Erythrocyte distribution width (RBC) [Ratio] 13.1 % Normal 10.9 - 14.2 % [facility] HemeAutoSS Hematocrit (Bld) [Volume fraction] 39.1 % Normal 34.0 - 46.0 % [facility] HemeAutoSS Hemoglobin (Bld) [Mass/Vol] 13.3 g/dL Normal 12.0 - 16.0 gm/dL [facility] HemeAutoSS MCH (RBC) [Entitic mass] 28.1 pg Normal 27.0 - 34.0 pg [facility] HemeAutoSS MCHC (RBC) [Mass/Vol] 34.0 g/dL Normal 31.4 - 36.0 gm/dL [facility] HemeAutoSS MCV (RBC) [Entitic vol] 82.7 fL Normal 80.0 - 100.0 fL [facility] HemeAutoSS Platelet mean volume (Bld) [Entitic vol] 8.3 fL Normal 6.4 - 10.8 fL [facility] HemeAutoSS Platelets (Bld) [#/Vol] 271.0 E9/L Normal 150.0 - 500.0 E9/L [facility] HemeAutoSS RBC (Bld) [#/Vol] 4.7 E12/L Normal 4.3 - 5.9 E12/L [facility] HemeAutoSS WBC corrected for nucl RBC Auto (Bld) [#/Vol] 9.5 E9/L Normal 4.0 - 11.0 E9/L [facility] HemeAutoSS SEROLOGYOrdered By: José cheung on 01-19-2023 Beta hCG Ql Negative (01/19/23 9:58 PM) Normal [facility] Man Sero URINALYSISOrdered By: José Jc on 01-19-2023 Bilirubin Ql (U) Negative (01/19/23 10:59 PM) Normal Negative [facility] UA Auto SS Clarity (U) Clear (01/19/23 10:59 PM) Normal Clear [facility] UA Auto SS Color (U) Yellow (01/19/23 10:59 PM) Normal Yellow [facility] UA Auto SS Epithelial cells.squamous LM.HPF (Urine sed) [#/Area] 0-2 /HPF Normal 0-2/HPF [facility] UA Aut o SS Glucose Test strip (U) [Mass/Vol] Negative (01/19/23 10:59 PM) Normal Negative [facility] UA Auto SS Hemoglobin Ql (U) Trace *ABN* (01/19/23 10:59 PM) Invalid Interpretation Code Negative [facility] UA Auto SS Ketones (U) [Mass/Vol] Negative (01/19/23 10:59 PM) Normal Negative [facility] UA Auto SS [place].plasma/Lithiu m.RBC (Bld) [Mass ratio] 0-3 /HPF Normal 0-3/HPF [facility] UA Auto SS Nitrite Ql (U) Negative (01/19/23 10:59 PM) Normal Negative [facility] UA Auto SS pH (U) 6.5 *NA* (01/19/23 10:59 PM) Invalid Interpretation Code 5.0 - 9.0 [facility] UA Auto SS Protein (U) [Mass/Vol] Negative (01/19/23 10:59 PM) Normal Negative [facility] UA Auto SS Specific gravity (U) [Rel density] 1.015 *NA* (01/19/23 10:59 PM) Invalid Interpretation Code 1.005 - 1.030 [facility] [place] Auto SS UA Spec Desc Clean Catch (01/19/23 10:59 PM) Normal [facility] [place] UA Auto SS Urobilinogen Qn (U) [id number] {Zachary'U}/dL Normal 0.0 - 1.0 EU/dL [facility] [place] UA Auto SS WBC Auto Ql (U) Negative (01/19/23 10:59 PM) Normal Negative [facility] [place] UA Auto SS WBC LM.HPF (Urine sed) [#/Area] 0-5 /HPF Normal 0-5/HPF [facility] [place] UA Auto SS CBC AUTO DIFFon 09-06-2022 BASO # 0.1 103/ul Normal 0.0-0.1 [facility] Comment on above: Performed By: #### C BC #### [facility] [address] [place] [address] Dr. Brandy Lazo Basophils/100 WBC (Bld) 1.6 % Normal 0.2-2.0 [facility] Comment on above: Performed By: #### C BC #### [facility] [address] [address] [address] Brandy Lazo EO # 0.1 103/ul Normal 0.0-0.7 [facility] Comment on above: Performed By: #### C BC #### [facility] [address] [place] [address] Dr. Brandy Lazo Eosinophils/100 WBC (Bld) 1.6 % Normal 0.9-7.0 [facility] Comment on above: Performed By: #### C BC #### [facility] [address] [place] [address] Dr. Brandy Lazo Erythrocyte distribution width (RBC) [Ratio] 12.0 % Normal 11.0-15.0 [facility] Comment on above: Performed By: #### C BC #### [facility] [address] [place] [address] Dr. Brandy Lazo Hematocrit (Bld) [Volume fraction] 39.5 % Normal 36.0-48.0 [facility] Comment on above: Performed By: #### C BC #### [facility] [address] [place] [address] Dr. Brandy Lazo Hemoglobin (Bld) [Mass/Vol] 13.6 g/dL Normal 12.0-16.0 [facility] Comment on above: Performed By: #### C BC #### [facility] [address] [place] [address] Dr. Brandy Lazo IG # 0.01 10e3/ul Normal 0.00-0.03 [facility] Comment on above: Performed By: #### C BC #### [facility] [address] [place] [address] Dr. Brandy Lazo IG % 0.2 % Normal 0.0-0.5 [facility] Comment on above: Performed By: #### C BC #### [facility] [address] [place] [address] Dr. Brandy Lazo LYMPH # 1.3 103/ul Normal 1.2-3.8 [facility] Comment on above: Performed By: #### C BC #### [facility] [address] [place] [address] Dr. Brandy Lazo Lymphocytes/100 WBC (Bld) 24.2 % Normal 20.5-60.0 [facility] Comment on above: Performed By: #### C BC #### [facility] [address] [place] [address] Dr. Brandy Lazo MANUAL DIFF REQ NO Normal [facility] Comment on above: Performed By: #### C BC #### [facility] [address] [place] [address] Dr. Brandy Lazo MCH (RBC) [Entitic mass] 28.6 pg Normal 26.7-34.0 [facility] Comment on above: Performed By: #### C BC #### [facility] [address] [place] [address] Dr. Brandy Lazo MCHC (RBC) [Mass/Vol] 34.4 g/dL Normal 29.9-35.2 [facility] Comment on above: Performed By: #### C BC #### [facility] [address] [address] [address] Brandy Lazo MCV (RBC) [Entitic vol] 83.0 fL Normal 81.0-99.0 [facility] Comment on above: Performed By: #### C BC #### [facility] [address] [address] [address] Brandy Lazo MONO # 0.6 103/ul Normal 0.3-0.8 [facility] Comment on above: Performed By: #### C BC #### [facility] [address] [place] [address] Dr. Brandy Lazo Monocytes/100 WBC (Bld) 10.3 % Normal 1.7-12.0 [facility] Comment on above: Performed By: #### C BC #### [facility] [address] [place] [address] Dr. Brandy Lazo NEUT # 3.4 103/ul Normal 1.4-6.5 [facility] Comment on above: Performed By: #### C BC #### [facility] [address] [place] [address] Dr. Brandy Lazo Neutrophils/100 WBC (Bld) 62.1 % Normal 43.0-75.0 [facility] Comment on above: Performed By: #### C BC #### [facility] [address] [place] [address] Dr. Brandy Lazo Platelet mean volume (Bld) [Entitic vol] 9.4 fL Critically low 9.5-13.5 [facility] Comment on above: Performed By: #### C BC #### [facility] [address] [place] [address] Dr. Brandy Lazo PLT 249 103/ul Normal 150-450 [facility] Comment on above: Performed By: #### C BC #### [facility] [address] [place] [address] Dr. Brandy Lazo RBC 4.76 106/ul Normal 4.20-5.40 [facility] Comment on above: Performed By: #### C BC #### [facility] [address] [place] [address] Dr. Brandy Lazo WBC 5.5 103/ul Normal 4.0-11.0 [facility] Comment on above: Performed By: #### C BC #### [facility] [address] [address] [address] Br[facility] SARS-CoV-2 (COVID-19) RNA ZANDRA+probe Ql (Unsp spec) Not detected Normal NOT DETECTED [facility] Comment on above: Result Comment: This test is not yet approved or cleared by the [place] FDA. When there are no FDA-approved or cleared tests available, and other criteria are met, FDA can make tests available under an emergency access mechanism called an Emergency Use Authorization (EUA). The EUA for this test is supported by the [employer] Worker of Health and Human Service's (HHS's) declaration that circumstances exist to justify the emergency use of in vitro diagnostics for the detection and/or diagnosis of the virus that causes COVID-19. This EUA will remain in effect (meaning this test can be used) for the duration of the COVID-19 declaration justifying emergency of IVDs, unless it is terminated or revoked by FDA (after which the test may no longer be used). When diagnostic testing is negative, the possibility of a false negative should be considered in the context of a patient's recent exposures and the presence of clinical signs and symptoms consistent with SARS-CoV-2. Performed By: #### C VDTBH #### [facility] [address] [address] [address] Brandy Lazo PREG QUANT HCGon 09-06-2022 HCG QUANT 1 mIU/mL Normal [facility] Comment on above: Performed By: #### P REGQNT #### [facility] [address] [address] [address] Brandy Lazo HCG RANGE SEE BELOW Normal [facility] Comment on above: Result Comment: 5-50 0.2-1 WEEK 50-500 1-2 WEEKS 100-5,000 2-3 WEEKS 500-10,000 3-4 WEEKS 1,000-50,000 4-5 WEEKS 10,000-100,000 5-6 WEEKS 15,000-200,000 6-8 WEEKS 10,000-100,000 2-3 MONTHS Performed By: #### P REGQNT #### [facility] [address] [place] [address] Dr. Brandy Lazo Reference Laboratory Testing Ordered By: Jannette Conner on 12-29-2021 Test Code 946373 Invalid Interpretation Code [facility] [place] SendOuts Test Name IG PAP HPV LUZ MARINA Invalid Interpretation Code [facility] [place] SendOutsSS Vital Signs Date Time Vital Sign Value Performing Clinician Kennedy green 07-04-2024 11:03-0500 Blood Pressure Location Lynnette Riedy [facility] 07-04-2024 11:03-0500 Diastolic blood pressure 68 mm[Hg] Lynnette Riedy [facility] 07-04-2024 11:03-0500 Heart rate 80 /min Lynnette Riedy [facility] 07-04-2024 11:03-0500 Respiratory rate 16 /min Lynnette Riedy [facility] 07-04-2024 11:03-0500 SaO2% (BldA) [Mass fraction] 98 % Lynnette Riedy [facility] 07-04-2024 11:03-0500 Systolic blood pressure 108 mm[Hg] Lynnette Riedy [facility] 04-01-2024 14:00-0400 Blood Pressure Location Lynnette Riedy [facility] 04-01-2024 14:00-0400 Diastolic blood pressure 78 mm[Hg] Lynnette Riedy [facility] 04-01-2024 14:00-0400 Heart rate 86 /min Lynnette Riedy [facility] 04-01-2024 14:00-0400 Respiratory rate 16 /min Lynnette Riedy [facility] 04-01-2024 14:00-0400 SaO2% (BldA) [Mass fraction] 99 % Lynnette Riedy [facility] 04-01-2024 14:00-0400 Systolic blood pressure 110 mm[Hg] Lynnette Riedy [facility] 02-19-2024 08:02-0400 Blood Pressure Location Lynnette Riedy [facility] 02-19-2024 08:02-0400 Diastolic blood pressure 72 mm[Hg] Lynnette Riedy [facility] 02-19-2024 08:02-0400 Heart rate 70 /min Lynnette Riedy [facility] 02-19-2024 08:02-0400 SaO2% (BldA) [Mass fraction] 99 % Lynnette Riedy [facility] 02-19-2024 08:02-0400 Systolic blood pressure 110 mm[Hg] Lynnette Riedy [facility] 01-19-2024 07:42-0400 Diastolic blood pressure 74 mm[Hg] Lynnette Riedy [facility] 01-19-2024 07:42-0400 Heart rate 73 /min Lynnette Riedy [facility] 01-19-2024 07:42-0400 SaO2% (BldA) [Mass fraction] 100 % Lynnette Riedy [facility] 01-19-2024 07:42-0400 Systolic blood pressure 110 mm[Hg] Lynnette Riedy [facility] 12-22-2023 08:10-0400 Blood Pressure Location Lynnette Riedy [facility] 12-22-2023 08:10-0400 Diastolic blood pressure 74 mm[Hg] Lynnette Riedy [facility] 12-22-2023 08:10-0400 Heart rate 75 /min Lynnette Riedy [facility] 12-22-2023 08:10-0400 Respiratory rate 16 /min Lynnette Riedy [facility] 12-22-2023 08:10-0400 SaO2% (BldA) [Mass fraction] 99 % Lynnette Riedy [facility] 12-22-2023 08:10-0400 Systolic blood pressure 112 mm[Hg] Lynnette Riedy [facility] 11-13-2023 09:07-0400 Blood Pressure Location Lynnette Riedy [facility] 11-13-2023 09:07-0400 Diastolic blood pressure 80 mm[Hg] Lynnette Riedy [facility] 11-13-2023 09:07-0400 Heart rate 61 /min Lynnette Riedy [facility] 11-13-2023 09:07-0400 Respiratory rate 16 /min Lynnette Riedy [facility] 11-13-2023 09:07-0400 SaO2% (BldA) [Mass fraction] 99 % Lynnette Riedy [facility] 11-13-2023 09:07-0400 Systolic blood pressure 112 mm[Hg] Lynnette Riedy [facility] 10-23-2023 07:08-0500 Blood Pressure Location Lynnette Riedy [facility] 10-23-2023 07:08-0500 Diastolic blood pressure 78 mm[Hg] Lynnette Riedy [facility] 10-23-2023 07:08-0500 Heart rate 79 /min Lynnette Riedy [facility] 10-23-2023 07:08-0500 SaO2% (BldA) [Mass fraction] 100 % Lynnette Riedy [facility] 10-23-2023 07:08-0500 Systolic blood pressure 114 mm[Hg] Lynnette Riedy [facility] 01-20-2023 00:10-0400 Diastolic blood pressure 57 mm[Hg] Amrik Juan R [facility] 01-20-2023 00:10-0400 Heart rate 83 /min Amrik Juan R [facility] 01-20-2023 00:10-0400 Mean blood pressure 76 mm[Hg] Amrik Juan R [facility] 01-20-2023 00:10-0400 SaO2% (BldA) [Mass fraction] 100 % Amrik Juan R [facility] 01-20-2023 00:10-0400 Systolic blood pressure 115 mm[Hg] Amrik Juan R [facility] 01-20-2023 00:00-0400 Hourly Rounding Amrik Juan R [facility] 01-20-2023 00:00-0400 Promise to Return Amrik Juan R [facility] 01-19-2023 23:00-0400 Diastolic blood pressure 80 mm[Hg] Amrik Juan R [facility] 01-19-2023 23:00-0400 Heart rate 77 /min Amrik Juan R [facility] 01-19-2023 23:00-0400 Hourly Rounding Amrik Juan R [facility] 01-19-2023 23:00-0400 Mean blood pressure 95 mm[Hg] Amrik Juan R [facility] 01-19-2023 23:00-0400 Promise to Return Amrik Juan R [facility] 01-19-2023 23:00-0400 SaO2% (BldA) [Mass fraction] 98 % Amrik Juan R [facility] 01-19-2023 23:00-0400 Systolic blood pressure 125 mm[Hg] Amrik Juan R [facility] 01-19-2023 22:00-0400 Diastolic blood pressure 75 mm[Hg] Amrik Juan R [facility] 01-19-2023 22:00-0400 Heart rate 61 /min Amrik Juan R [facility] 01-19-2023 22:00-0400 Hourly Rounding Amrik Juan R [facility] 01-19-2023 22:00-0400 Mean blood pressure 94 mm[Hg] Amrik Juan R [facility] 01-19-2023 22:00-0400 Promise to Return Amrik Juan R [facility] 01-19-2023 22:00-0400 Systolic blood pressure 131 mm[Hg] Amrik Juan R [facility] 01-19-2023 21:43-0400 Body temperature 98.42 [degF] Amrik Juan R [facility] 01-19-2023 21:43-0400 Heart rate 78 /min Amrik Juan R [facility] 01-19-2023 21:43-0400 Respiratory rate 16 /min Amrik Juan R [facility] Encounters Encounter Date Encounter Type Care Provider Facility Start: 10-04-2024 ambulatory Lynnette D Riedy Facilit y:[facility] Start: 07-04-2024 End: 07-04-2024 ambulatory Lynnette D Riedy Facility:[facility] Start: 07-04-2024 End: 07-04-2024 Patient encounter procedure Lynnette D Riedy [facility] Start: 04-01-2024 End: 04-01-2024 ambulatory Lynnette D Riedy Facility:[facility] Start: 04-01-2024 End: 04-01-2024 Patient encounter procedure Lynnette D Riedy [facility] Start: 03-06-2024 End: 03-06-2024 ambulatory Antoinette HAWK Facility:[facility] Start: 02-19-2024 End: 02-19-2024 ambulatory Lynnette D Riedy Facility:[facility] Start: 02-19-2024 End: 02-19-2024 Patient encounter procedure Lynnette D Riedy [facility] Start: 01-19-2024 End: 01-19-2024 ambulatory Lynnette D Riedy Facility:[facility] Start: 01-19-2024 End: 01-19-2024 Patient encounter procedure Lynnette D Riedy [facility] Start: 01-03-2024 End: 01-03-2024 ambulatory GERHARD D DOLCE Not Available Start: 12-22-2023 End: 12-22-2023 ambulatory Lynnette D Riedy Facility:[facility] Start: 12-22-2023 End: 12-22-2023 Patient encounter procedure Lynnette D Riedy [facility] Start: 12-20-2023 End: 12-21-2023 ambulatory GERHARD D DOLCE Not Available Start: 11-13-2023 End: 11-13-2023 ambulatory Lynnette D Riedy Facility:[facility] Start: 11-13-2023 End: 11-13-2023 Patient encounter procedure Lynnette D Riedy [facility] Start: 10-23-2023 End: 10-23-2023 Lab Drop off Lynnette D Riedy [facility] Start: 10-23-2023 End: 10-23-2023 ambulatory Lynnette D Riedy [place] [place]: 10-23-2023 End: 10-23-2023 Patient encounter procedure Lynnette Soto Byronfroy [facility] Start: 10-23-2023 End: 10-23-2023 Well adult monitoring check done Lynnette Soto Indrajanes [facility] Start: 09-07-2023 End: 09-07-2023 ambulatory LEISA MIRZA Not Available Start: 08-25-2023 End: 08-25-2023 ambulatory GERHARD SMALL Not Available Start: 08-04-2023 End: 08-04-2023 ambulatory GERHARD D DOLCE Not Available Start: 01-19-2023 End: 01-20-2023 Emergency department patient visit Amrik Pete [facility] Start: 09-12-2022 Encounter for preprocedural laboratory examination DR CHERIE OLIVIA [facility] Start: 09-08-2022 End: 09-08-[address] CHERIE OLIVIA Facility:[facility] Start: 09-07-2022 Encounter for other preprocedural examination DR CHERIE OLIVIA [facility] Start: 09-06-2022 End: 09-07-[address] CHERIE OLIVIA Facility:[facility] Start: 09-06-2022 End: 09-07-2022 Encounter for preprocedural laboratory examination DR CHERIE OLIVIA Facility:[facility] Start: 09-01-2022 End: 09-02-[address] CHERIE OLIVIA Facility:[facility] Start: 09-01-2022 End: 09-02-2022 Encounter for other preprocedural examination DR CHERIE OLIVIA Facility:[facility] Start: 07-04-2022 End: 07-04-2022 Lab Drop off Dilan Copeland [facility] Start: 12-29-2021 End: 12-29-2021 Lab Drop off Dilan Copeland [facility] Procedures Date Procedure Procedure Detail Performing Clinician Cystoscopy Dilan Min NONE Dilan Min Immunizations Immunization Date Immunization Notes Care Provider Carlita carrasco 11-03-2011 HPV, unspecified formulation Lynnette Riedy [facility] 04-29-1998 DTaP, unspecified formulation Lynnette Riedy [facility] 04-29-1998 measles, mumps and rubella virus vaccine Lynnette Riedy [facility] NEGATED: Highlighted row has not occurred!07-04-2024 influenza virus vaccine, unspecified formulation Lynnette Riedy [facility] NEGATED: Highlighted row has not occurred!11-13-2023 influenza virus vaccine, unspecified formulation Lynnette Riedy [facility] NEGATED: Highlighted row has not occurred!10-23-2023 influenza virus vaccine, unspecified formulation Lynnette Riedy [facility] NEGATED: Highlighted row has not occurred!10-15-2021 influenza virus vaccine, unspecified formulation Dilan Min [facility] Payers Date Payer Category Payer Unknown [id number] 2.16.84 [id number] 1993 Unknown [id number] 2.16.84 [id number] 1993 Unknown [id number] 2.16.84 [id number] 1993 Unknown [id number] 2.16.84 [id number] 1993 Unknown [id number] 2.16.84 0.1.286630.3.579.2.1259 1993 Unknown [id number] 2.16.84 0.1.981856.3.579.2.1259 1993 Unknown [id number] 2.16.84 0.1.672305.3.579.2.1259 1993 Unknown [id number] 2.16.840 .1.134230.3.579.2.1259 1993 Unknown [id number] 2.16.840 .1.280872.3.579.2.1259 1993 Unknown [id number] 2.16.8 40.1.750303.3.579.2.7 1993 Unknown [id number] 2.16.8 40.1.216831.3.579.2. 1993 Unknown [id number] 2.16.8 40.1.852951.3.579.2.727 1993 Unknown [id number] 2.16.8 40.1.114778.3.579.2.7 1993 Unknown [id number] 2.16.8 40.1.582759.3.579.2.727 1993 Unknown [id number] 2.16.8 40.1.304917.3.579.2.727 1993 Unknown [id number] 2.16.8 40.1.038698.3.579.2.727 1993 Unknown [id number] 2.16.8 40.1.868599.3.579.2.727 1993 Unknown [id number] 2.16.8 40.1.898801.3.579.2.727 1993 Unknown [id number] 2.16.8 40.1.489603.3.579.2.727 1959 Unknown [id number] 1959 Unknown [id number] Social History Date Type Detail Facility Start: 10-19-2021 End: 07-04-2024 Tobacco smoking status Never smoked tobacco (finding) [facility] Tobacco smoking status Never [facility] Sex Assigned At Female [facility] Tobacco [facility] Comment on above: Denies. Tobacco smoking status No Smokin g Status Entered [facility] Functional Status Date Assessment Result Facility 07-04-2024 Functional Status N/A [facility] 04-01-2024 Functional Status N/A [facility] 02-19-2024 Functional Status N/A [facility] 01-19-2024 Functional Status N/A [facility] 12-22-2023 Functional Status N/A [facility] 11-13-2023 Functional Status N/A [facility] 10-23-2023 Functional Status N/A [facility] 01-19-2023 Functional Status N/A [facility] Clinical Notes 07-04-2022 to 07-04-2024 Note Date & Type Note Facility 07-04-2024 Hospital Discharg e instructions Patient Education 07/04/2024 11:07:27 DASH Eating Plan DASH Eating Plan DASH stands for Dietary Approaches to Stop Hypertension. The DASH eating plan is a healthy eating plan that has been shown to: Lower high blood pressure (hypertension). Reduce your risk for type 2 diabetes, heart disease, and stroke. Help with weight loss. What are tips for following this plan? Reading food labels Check food labels for the amount of salt (sodium) per serving. Choose foods with less than 5 percent of the Daily Value (DV) of sodium. In general, foods with less than 300 milligrams (mg) of sodium per serving fit into this eating plan. To find whole grains, look for the word whole as the first word in the ingredient list. Shopping Buy products labeled as low-sodium or no salt added. Buy fresh foods. Avoid canned foods and pre-made or frozen meals. Cooking Try not to add salt when you cook. Use salt-free seasonings or herbs instead of table salt or sea salt. Check with your health care provider or pharmacist before using salt substitutes. Do not betancur foods. Cook foods in healthy ways, such as baking, boiling, grilling, roasting, or broiling. Cook using oils that are good for your heart. These include olive, canola, avocado, soybean, and sunflower oil. Meal planning Eat a balanced diet. This should include: ?4 or more servings of fruits and 4 or more servings of vegetables each day. Try to fill half of your plate with fruits and vegetables. ?6 8 servings of whole grains each day. ?6 or less servings of lean meat, poultry, or fish each day. 1 oz is 1 serving. A 3 oz (85 g) serving of meat is about the same size as the palm of your hand. One egg is 1 oz (28 g). ?2 3 servings of low-fat dairy each day. One serving is 1 cup (237 mL). ?1 serving of nuts, seeds, or beans 5 times each week. ?2 3 servings of heart-healthy fats. Healthy fats called omega-3 fatty acids are found in foods such as walnuts, flaxseeds, fortified milks, and eggs. These fats are also found in cold-water fish, such as sardines, salmon, and mackerel. Limit how much you eat of: ?Canned or prepackaged foods. ?Food that is high in trans fat, such as fried foods. ?Food that is high in saturated fat, such as fatty meat. ?Desserts and other sweets, sugary drinks, and other foods with added sugar. ?Full-fat dairy products. Do not salt foods before eating. Do not eat more than 4 egg yolks a week. Try to eat at least 2 vegetarian meals a week. Eat more home-cooked food and less restaurant, buffet, and fast food. Lifestyle When eating at a restaurant, ask if your food can be made with less salt or no salt. If you drink alcohol: ?Limit how much you have to: ?0 1 drink a day if you are female. ?0 2 drinks a day if you are male. ?Know how much alcohol is in your drink. In the [place] one drink is one 12 oz bottle of beer (355 mL), one 5 oz glass of wine (148 mL), or one 1 oz glass of hard liquor (44 mL). General information Avoid eating more than 2,300 mg of salt a day. If you have hypertension, you may need to reduce your sodium intake to 1,500 mg a day. Work with your provider to stay at a healthy body weight or lose weight. Ask what the best weight range is for you. On most days of the week, get at least 30 minutes of exercise that causes your heart to beat faster. This may include walking, swimming, or biking. Work with your provider or dietitian to adjust your eating plan to meet your specific calorie needs. What foods should I eat? Fruits All fresh, dried, or frozen fruit. Canned fruits that are in their natural juice and do not have sugar added to them. Vegetables Fresh or frozen vegetables that are raw, steamed, roasted, or grilled. Low-sodium or reduced-sodium tomato and vegetable juice. Low-sodium or reduced-sodium tomato sauce and tomato paste. Low-sodium or reduced-sodium canned vegetables. Grains Whole-grain or whole-wheat bread. Whole-grain or whole-wheat pasta. Brown rice. Oatmeal. Quinoa. Bulgur. Whole-grain and low-sodium cereals. Mary bread. Low-fat, low-sodium crackers. Whole-wheat flour tortillas. Meats and other proteins Skinless chicken or turkey. Ground chicken or turkey. Pork with fat trimmed off. Fish and seafood. Egg whites. Dried beans, peas, or lentils. Unsalted nuts, nut butters, and seeds. Unsalted canned beans. Lean cuts of beef with fat trimmed off. Low-sodium, lean precooked or cured meat, such as sausages or meat loaves. Dairy Low-fat (1%) or fat-free (skim) milk. Reduced-fat, low-fat, or fat-free cheeses. Nonfat, low-sodium ricotta or cottage cheese. Low-fat or nonfat yogurt. Low-fat, low-sodium cheese. Fats and oils Soft margarine without trans fats. Vegetable oil. Reduced-fat, low-fat, or light mayonnaise and salad dressings (reduced-sodium). Canola, safflower, olive, avocado, soybean, and sunflower oils. Avocado. Seasonings and condiments Herbs. Spices. Seasoning mixes without salt. Other foods Unsalted popcorn and pretzels. Fat-free sweets. The items listed above may not be all the foods and drinks you can have. Talk to a dietitian to learn more. What foods should I avoid? Fruits Canned fruit in a light or heavy syrup. Fried fruit. Fruit in cream or butter sauce. Vegetables Creamed or fried vegetables. Vegetables in a cheese sauce. Regular canned vegetables that are not marked as low-sodium or reduced-sodium. Regular canned tomato sauce and paste that are not marked as low-sodium or reduced-sodium. Regular tomato and vegetable juices that are not marked as low-sodium or reduced-sodium. Pickles. Olives. Grains Baked goods made with fat, such as croissants, muffins, or some breads. Dry pasta or rice meal packs. Meats and other proteins Fatty cuts of meat. Ribs. Fried meat. Diaz. Bologna, salami, and other precooked or cured meats, such as sausages or meat loaves, that are not lean and low in sodium. Fat from the back of a pig (fatback). Bratwurst. Salted nuts and seeds. Canned beans with added salt. Canned or smoked fish. Whole eggs or egg yolks. Chicken or turkey with skin. Dairy Whole or 2% milk, cream, and [id number]. Whole or full-fat cream cheese. Whole-fat or sweetened yogurt. Full-fat cheese. Nondairy creamers. Whipped toppings. Processed cheese and cheese spreads. Fats and oils Butter. Stick margarine. Lard. Shortening. Ghee. Diaz fat. Tropical oils, such as coconut, palm kernel, or palm oil. Seasonings and condiments Onion salt, garlic salt, seasoned salt, table salt, and sea salt. [facility] sauce. Tartar sauce. Barbecue sauce. Teriyaki sauce. Soy sauce, including reduced-sodium soy sauce. Steak sauce. Canned and packaged gravies. Fish sauce. Oyster sauce. Cocktail sauce. Store-bought horseradish. Ketchup. Mustard. Meat flavorings and tenderizers. Bouillon cubes. Hot sauces. Pre-made or packaged marinades. Pre-made or packaged taco seasonings. Relishes. Regular salad dressings. Other foods Salted popcorn and pretzels. The items listed above may not be all the foods and drinks you should avoid. Talk to a dietitian to learn more. Where to find more information National Heart, Lung, and Blood [place] (NHLBI): nhlbi.nih.gov [place] Heart Association (AHA): heart.org Academy of Nutrition and Dietetics: eatright.org National Kidney Foundation (NKF): kidney.org This information is not intended to replace advice given to you by your health care provider. Make sure you discuss any questions you have with your health care provider. Document Revised: 08/24/2023 Document Reviewed: 08/24/2023 [employer] Patient Education 2023 [employer]. 07/04/2024 11:07:26 BMI for Adults BMI for Adults Body mass index (BMI) is a number found using a person's weight and height. BMI can help tell how much of a person's weight is made up of fat. BMI does not measure body fat directly. It is used instead of tests that directly measure body fat, which can be difficult and expensive. What are BMI measurements used for? BMI is useful to: Find out if your weight puts you at higher risk for medical problems. Help recommend changes, such as in diet and exercise. This can help you reach a healthy weight. BMI screening can be done again to see if these changes are working. How is BMI calculated? Your height and weight are measured. The BMI is found from those numbers. This can be done with [place] or metric measurements. Note that charts and online BMI calculators are available to help you find your BMI quickly and easily without doing these calculations. To calculate your BMI in [place] measurements: 1.Measure your weight in pounds (lb). 2.Multiply the number of pounds by 703. So, for an adult who weighs 150 lb, multiply that number by 703: 150 x 703, which equals 105,450. 3.Measure your height in inches. Then multiply that number by itself to get a measurement called inches squared. So, for an adult who is 70 inches tall, the inches squared measurement is 70 inches x 70 inches, which equals 4,900 inches squared. 4.Divide the total from step 2 (number of lb x 703) by the total from step 3 (inches squared): 105,450 4,900 = 21.5. This is your BMI. To calculate your BMI in metric measurements: 1.Measure your weight in kilograms (kg). For this example, the weight is 70 kg. 2.Measure your height in meters (m). Then multiply that number by itself to get a measurement called meters squared. So, for an adult who is 1.75 m tall, the meters squared measurement is 1.75 m x 1.75 m, which equals 3.1 meters squared. 3.Divide the number of kilograms (your weight) by the meters squared number. In this example: 70 3.1 = 22.6. This is your BMI. What do the results mean? BMI charts are used to see if you are underweight, normal weight, overweight, or obese. The following guidelines will be used: Underweight: BMI less than 18.5. Normal weight: BMI between 18.5 and 24.9. Overweight: BMI between 25 and 29.9. Obese: BMI of 30 or above. BMI is a tool and cannot diagnose a condition. Talk with your health care provider about what your BMI means for you. Keep these notes in mind: Weight includes fat and muscle. Someone with a muscular build, such as an athlete, may have a BMI that is higher than 24.9. In cases like these, BMI is not a correct measure of body fat. If you have a BMI of 25 or higher, your provider may need to do more testing to find out if excess body fat is the cause. BMI is measured the same way for males and females. Females usually have more body fat than males of the same height and weight. Where to find more information For more information about BMI, including tools to quickly find your BMI, go to: Centers for Disease Control and Prevention: cdc.gov [place] Heart Association: heart.org National Heart, Lung, and Blood [place]: nhlbi.nih.gov This information is not intended to replace advice given to you by your health care provider. Make sure you discuss any questions you have with your health care provider. Document Revised: 04/27/2023 Document Reviewed: 04/20/2023 [employer] Patient Education 2023 [employer]. Follow Up Care 04/01/2024 14:22:10 With:Lynnette Dean CNP Address: When:Within 3 Month(s) Comments:medication review [facility] [place] 07-04-2024 Note Patient Education Nutrition DASH Eating Plan DASH stands for Dietary Approaches to Stop Hypertension. The DASH eating plan is a healthy eating plan that has been shown to: ??? Lower high blood pressure (hypertension). ??? Reduce your risk for type 2 diabetes, heart disease, and stroke. ??? Help with weight loss. What are tips for following this plan? Reading food labels ??? Check food labels for the amount of salt (sodium) per serving. Choose foods with less than 5 percent of the Daily Value (DV) of sodium. In general, foods with less than 300 milligrams (mg) of sodium per serving fit into this eating plan. ??? To find whole grains, look for the word whole as the first word in the ingredient list. Shopping ??? Buy products labeled as low-sodium or no salt added. ??? Buy fresh foods. Avoid canned foods and pre-made or frozen meals. Cooking ??? Try not to add salt when you cook. Use salt-free seasonings or herbs instead of table salt or sea salt. Check with your health care provider or pharmacist before using salt substitutes. ??? Do not betancur foods. Cook foods in healthy ways, such as baking, boiling, grilling, roasting, or broiling. ??? Cook using oils that are good for your heart. These include olive, canola, avocado, soybean, and sunflower oil. Meal planning ??? Eat a balanced diet. This should include: ? 4 or more servings of fruits and 4 or more servings of vegetables each day. Try to fill half of your plate with fruits and vegetables. ? 6?8 servings of whole grains each day. ? 6 or less servings of lean meat, poultry, or fish each day. 1 oz is 1 serving. A 3 oz (85 g) serving of meat is about the same size as the palm of your hand. One egg is 1 oz (28 g). ? 2?3 servings of low-fat dairy each day. One serving is 1 cup (237 mL). ? 1 serving of nuts, seeds, or beans 5 times each week. ? 2?3 servings of heart-healthy fats. Healthy fats called omega-3 fatty acids are found in foods such as walnuts, flaxseeds, fortified milks, and eggs. These fats are also found in cold-water fish, such as sardines, salmon, and mackerel. ??? Limit how much you eat of: ? Canned or prepackaged foods. ? Food that is high in trans fat, such as fried foods. ? Food that is high in saturated fat, such as fatty meat. ? Desserts and other sweets, sugary drinks, and other foods with added sugar. ? Full-fat dairy products. ??? Do not salt foods before eating. ??? Do not eat more than 4 egg yolks a week. ??? Try to eat at least 2 vegetarian meals a week. ??? Eat more home-cooked food and less restaurant, buffet, and fast food. Lifestyle ??? When eating at a restaurant, ask if your food can be made with less salt or no salt. ??? If you drink alcohol: ? Limit how much you have to: ? 0?1 drink a day if you are female. ? 0?2 drinks a day if you are male. ? Know how much alcohol is in your drink. In the [place] one drink is one 12 oz bottle of beer (355 mL), one 5 oz glass of wine (148 mL), or one 1? oz glass of hard liquor (44 mL). General information ??? Avoid eating more than 2,300 mg of salt a day. If you have hypertension, you may need to reduce your sodium intake to 1,500 mg a day. ??? Work with your provider to stay at a healthy body weight or lose weight. Ask what the best weight range is for you. ??? On most days of the week, get at least 30 minutes of exercise that causes your heart to beat faster. This may include walking, swimming, or biking. ??? Work with your provider or dietitian to adjust your eating plan to meet your specific calorie needs. What foods should I eat? Fruits All fresh, dried, or frozen fruit. Canned fruits that are in their natural juice and do not have sugar added to them. Vegetables Fresh or frozen vegetables that are raw, steamed, roasted, or grilled. Low-sodium or reduced-sodium tomato and vegetable juice. Low-sodium or reduced-sodium tomato sauce and tomato paste. Low-sodium or reduced-sodium canned vegetables. Grains Whole-grain or whole-wheat bread. Whole-grain or whole-wheat pasta. Brown rice. Oatmeal. Quinoa. Bulgur. Whole-grain and low-sodium cereals. Mary bread. Low-fat, low-sodium crackers. Whole-wheat flour tortillas. Meats and other proteins Skinless chicken or turkey. Ground chicken or turkey. Pork with fat trimmed off. Fish and seafood. Egg whites. Dried beans, peas, or lentils. Unsalted nuts, nut butters, and seeds. Unsalted canned beans. Lean cuts of beef with fat trimmed off. Low-sodium, lean precooked or cured meat, such as sausages or meat loaves. Dairy Low-fat (1%) or fat-free (skim) milk. Reduced-fat, low-fat, or fat-free cheeses. Nonfat, low-sodium ricotta or cottage cheese. Low-fat or nonfat yogurt. Low-fat, low-sodium cheese. Fats and oils Soft margarine without trans fats. Vegetable oil. Reduced-fat, low-fat, or light mayonnaise and salad dressings (reduced-sodium). Canola, safflower, olive, avocado, soybean, and sunflower oils (more content not included)... [facility] 04-01-2024 Hospital Discharg e instructions Patient Education 04/01/2024 14:04:09 DASH Eating Plan DASH Eating Plan DASH stands for Dietary Approaches to Stop Hypertension. The DASH eating plan is a healthy eating plan that has been shown to: Reduce high blood pressure (hypertension). Reduce your risk for type 2 diabetes, heart disease, and stroke. Help with weight loss. What are tips for following this plan? Reading food labels Check food labels for the amount of salt (sodium) per serving. Choose foods with less than 5 percent of the Daily Value of sodium. Generally, foods with less than 300 milligrams (mg) of sodium per serving fit into this eating plan. To find whole grains, look for the word whole as the first word in the ingredient list. Shopping Buy products labeled as low-sodium or no salt added. Buy fresh foods. Avoid canned foods and pre-made or frozen meals. Cooking Avoid adding salt when cooking. Use salt-free seasonings or herbs instead of table salt or sea salt. Check with your health care provider or pharmacist before using salt substitutes. Do not betancur foods. Cook foods using healthy methods such as baking, boiling, grilling, roasting, and broiling instead. Cook with heart-healthy oils, such as olive, canola, avocado, soybean, or sunflower oil. Meal planning Eat a balanced diet that includes: ?4 or more servings of fruits and 4 or more servings of vegetables each day. Try to fill one-half of your plate with fruits and vegetables. ?6 8 servings of whole grains each day. ?Less than 6 oz (170 g) of lean meat, poultry, or fish each day. A 3-oz (85-g) serving of meat is about the same size as a deck of cards. One egg equals 1 oz (28 g). ?2 3 servings of low-fat dairy each day. One serving is 1 cup (237 mL). ?1 serving of nuts, seeds, or beans 5 times each week. ?2 3 servings of heart-healthy fats. Healthy fats called omega-3 fatty acids are found in foods such as walnuts, flaxseeds, fortified milks, and eggs. These fats are also found in cold-water fish, such as sardines, salmon, and mackerel. Limit how much you eat of: ?Canned or prepackaged foods. ?Food that is high in trans fat, such as some fried foods. ?Food that is high in saturated fat, such as fatty meat. ?Desserts and other sweets, sugary drinks, and other foods with added sugar. ?Full-fat dairy products. Do not salt foods before eating. Do not eat more than 4 egg yolks a week. Try to eat at least 2 vegetarian meals a week. Eat more home-cooked food and less restaurant, buffet, and fast food. Lifestyle When eating at a restaurant, ask that your food be prepared with less salt or no salt, if possible. If you drink alcohol: ?Limit how much you use to: ?0 1 drink a day for women who are not . ?0 2 drinks a day for men. ?Be aware of how much alcohol is in your drink. In the [place] one drink equals one 12 oz bottle of beer (355 mL), one 5 oz glass of wine (148 mL), or one 1 oz glass of hard liquor (44 mL). General information Avoid eating more than 2,300 mg of salt a day. If you have hypertension, you may need to reduce your sodium intake to 1,500 mg a day. Work with your health care provider to maintain a healthy body weight or to lose weight. Ask what an ideal weight is for you. Get at least 30 minutes of exercise that causes your heart to beat faster (aerobic exercise) most days of the week. Activities may include walking, swimming, or biking. Work with your health care provider or dietitian to adjust your eating plan to your individual calorie needs. What foods should I eat? Fruits All fresh, dried, or frozen fruit. Canned fruit in natural juice (without added sugar). Vegetables Fresh or frozen vegetables (raw, steamed, roasted, or grilled). Low-sodium or reduced-sodium tomato and vegetable juice. Low-sodium or reduced-sodium tomato sauce and tomato paste. Low-sodium or reduced-sodium canned vegetables. Grains Whole-grain or whole-wheat bread. Whole-grain or whole-wheat pasta. Brown rice. Oatmeal. Quinoa. Bulgur. Whole-grain and low-sodium cereals. Mary bread. Low-fat, low-sodium crackers. Whole-wheat flour tortillas. Meats and other proteins Skinless chicken or turkey. Ground chicken or turkey. Pork with fat trimmed off. Fish and seafood. Egg whites. Dried beans, peas, or lentils. Unsalted nuts, nut butters, and seeds. Unsalted canned beans. Lean cuts of beef with fat trimmed off. Low-sodium, lean precooked or cured meat, such as sausages or meat loaves. Dairy Low-fat (1%) or fat-free (skim) milk. Reduced-fat, low-fat, or fat-free cheeses. Nonfat, low-sodium ricotta or cottage cheese. Low-fat or nonfat yogurt. Low-fat, low-sodium cheese. Fats and oils Soft margarine without trans fats. Vegetable oil. Reduced-fat, low-fat, or light mayonnaise and salad dressings (reduced-sodium). Canola, safflower, olive, avocado, soybean, and sunflower oils. Avocado. Seasonings and condiments Herbs. Spices. Seasoning mixes without salt. Other foods Unsalted popcorn and pretzels. Fat-free sweets. The items listed above may not be a complete list of foods and beverages you can eat. Contact a dietitian for more information. What foods should I avoid? Fruits Canned fruit in a light or heavy syrup. Fried fruit. Fruit in cream or butter sauce. Vegetables Creamed or fried vegetables. Vegetables in a cheese sauce. Regular canned vegetables (not low-sodium or reduced-sodium). Regular canned tomato sauce and paste (not low-sodium or reduced-sodium). Regular tomato and vegetable juice (not low-sodium or reduced-sodium). Pickles. Olives. Grains Baked goods made with fat, such as croissants, muffins, or some breads. Dry pasta or rice meal packs. Meats and other proteins Fatty cuts of meat. Ribs. Fried meat. Diaz. Bologna, salami, and other precooked or cured meats, such as sausages or meat loaves. Fat from the back of a pig (fatback). Bratwurst. Salted nuts and seeds. Canned beans with added salt. Canned or smoked fish. Whole eggs or egg yolks. Chicken or turkey with skin. Dairy Whole or 2% milk, cream, and [id number]. Whole or full-fat cream cheese. Whole-fat or sweetened yogurt. Full-fat cheese. Nondairy creamers. Whipped toppings. Processed cheese and cheese spreads. Fats and oils Butter. Stick margarine. Lard. Shortening. Ghee. Diaz fat. Tropical oils, such as coconut, palm kernel, or palm oil. Seasonings and condiments Onion salt, garlic salt, seasoned salt, table salt, and sea salt. Worcestershire sauce. Tartar sauce. Barbecue sauce. Teriyaki sauce. Soy sauce, including reduced-sodium. Steak sauce. Canned and packaged gravies. Fish sauce. Oyster sauce. Cocktail sauce. Store-bought horseradish. Ketchup. Mustard. Meat flavorings and tenderizers. Bouillon cubes. Hot sauces. Pre-made or packaged marinades. Pre-made or packaged taco seasonings. Relishes. Regular salad dressings. Other foods Salted popcorn and pretzels. The items listed above may not be a complete list of foods and beverages you should avoid. Contact a dietitian for more information. Where to find more information National Heart, Lung, and Blood [place]: www.nhlbi.nih.gov [place] [employer]: www.heart.org Academy of Nutrition and Dietetics: www.eatright.org National Kidney Foundation: www.kidney.org Summary The DASH eating plan is a healthy eating plan that has been shown to reduce high blood pressure (hypertension). It may also reduce your risk for type 2 diabetes, heart disease, and stroke. When on the DASH eating plan, aim to eat more fresh fruits and vegetables, whole grains, lean proteins, low-fat dairy, and heart-healthy fats. With the DASH eating plan, you should limit salt (sodium) intake to 2,300 mg a day. If you have hypertension, you may need to reduce your sodium intake to 1,500 mg a day. Work with your health care provider or dietitian to adjust your eating plan to your individual calorie needs. This information is not intended to replace advice given to you by your health care provider. Make sure you discuss any questions you have with your health care provider. Document Revised: 07/10/2020 Document Reviewed: 07/10/2020 [employer] Patient Education 2022 [employer] 04/01/2024 14:04:06 BMI for Adults BMI for Adults What is BMI? Body mass index (BMI) is a number that is calculated from a person's weight and height. BMI can help estimate how much of a person's weight is composed of fat. BMI does not measure body fat directly. Rather, it is an alternative to procedures that directly measure body fat, which can be difficult and expensive. BMI can help identify people who may be at higher risk for certain medical problems. What are BMI measurements used for? BMI is used as a screening tool to identify possible weight problems. It helps determine whether a person is obese, overweight, a healthy weight, or underweight. BMI is useful for: Identifying a weight problem that may be related to a medical condition or may increase the risk for medical problems. Promoting changes, such as changes in diet and exercise, to help reach a healthy weight. BMI screening can be repeated to see if these changes are working. How is BMI calculated? BMI involves measuring your weight in relation to your height. Both height and weight are measured, and the BMI is calculated from those numbers. This can be done either in [place] ([place] or metric measurements. Note that charts and online BMI calculators are available to help you find your BMI quickly and easily without having to do these calculations yourself. To calculate your BMI in [place] measurements: 1.Measure your weight in pounds (lb). 2.Multiply the number of pounds by 703. For example, for a person who weighs 180 lb, multiply that number by 703, which equals 126,540. 3.Measure your height in inches. Then multiply that number by itself to get a measurement called inches squared. For example, for a person who is 70 inches tall, the inches squared measurement is 70 inches x 70 inches, which equals 4,900 inches squared. 4.Divide the total from step 2 (number of lb x 703) by the total from step 3 (inches squared): 126,540 4,900 = 25.8. This is your BMI. To calculate your BMI in metric measurements: 1.Measure your weight in kilograms (kg). 2.Measure your height in meters (m). Then multiply that number by itself to get a measurement called meters squared. For example, for a person who is 1.75 m tall, the meters squared measurement is 1.75 m x 1.75 m, which is equal to 3.1 meters squared. 3.Divide the number of kilograms (your weight) by the meters squared number. In this example: 70 3.1 = 22.6. This is your BMI. What do the results mean? BMI charts are used to identify whether you are underweight, normal weight, overweight, or obese. The following guidelines will be used: Underweight: BMI less than 18.5. Normal weight: BMI between 18.5 and 24.9. Overweight: BMI between 25 and 29.9. Obese: BMI of 30 or above. Keep these notes in mind: Weight includes both fat and muscle, so someone with a muscular build, such as an athlete, may have a BMI that is higher than 24.9. In cases like these, BMI is not an accurate measure of body fat. To determine if excess body fat is the cause of a BMI of 25 or higher, further assessments may need to be done by a health care provider. BMI is usually interpreted in the same way for men and women. Where to find more information For more information about BMI, including tools to quickly calculate your BMI, go to these websites: Centers for Disease Control and Prevention: www.cdc.gov [place] [employer]: www.heart.org National Heart, Lung, and Blood [place]: www.nhlbi.nih.gov Summary Body mass index (BMI) is a number that is calculated from a person's weight and height. BMI may help estimate how much of a person's weight is composed of fat. BMI can help identify those who may be at higher risk for certain medical problems. BMI can be measured using [place]ic measurements or metric measurements. BMI charts are used to identify whether you are underweight, normal weight, overweight, or obese. This information is not intended to replace advice given to you by your health care provider. Make sure you discuss any questions you have with your health care provider. Document Revised: 04/29/2020 Document Reviewed: 03/06/2020 [employer] Patient Education 2022 [employer]. Follow Up Care 02/19/2024 08:23:55 With:Lynnette Dean CNP Address: When:Within 3 Month(s) Comments:Medication review [facility] [place] 04-01-2024 Note Patient Education Nutrition DASH Eating Plan DASH stands for Dietary Approaches to Stop Hypertension. The DASH eating plan is a healthy eating plan that has been shown to: ? Reduce high blood pressure (hypertension). ? Reduce your risk for type 2 diabetes, heart disease, and stroke. ? Help with weight loss. What are tips for following this plan? Reading food labels ? Check food labels for the amount of salt (sodium) per serving. Choose foods with less than 5 percent of the Daily Value of sodium. Generally, foods with less than 300 milligrams (mg) of sodium per serving fit into this eating plan. ? To find whole grains, look for the word whole as the first word in the ingredient list. Shopping ? Buy products labeled as low-sodium or no salt added. ? Buy fresh foods. Avoid canned foods and pre-made or frozen meals. Cooking ? Avoid adding salt when cooking. Use salt-free seasonings or herbs instead of table salt or sea salt. Check with your health care provider or pharmacist before using salt substitutes. ? Do not betancur foods. Cook foods using healthy methods such as baking, boiling, grilling, roasting, and broiling instead. ? Cook with heart-healthy oils, such as olive, canola, avocado, soybean, or sunflower oil. Meal planning ? Eat a balanced diet that includes: ? 4 or more servings of fruits and 4 or more servings of vegetables each day. Try to fill one-half of your plate with fruits and vegetables. ? 6?8 servings of whole grains each day. ? Less than 6 oz (170 g) of lean meat, poultry, or fish each day. A 3-oz (85-g) serving of meat is about the same size as a deck of cards. One egg equals 1 oz (28 g). ? 2?3 servings of low-fat dairy each day. One serving is 1 cup (237 mL). ? 1 serving of nuts, seeds, or beans 5 times each week. ? 2?3 servings of heart-healthy fats. Healthy fats called omega-3 fatty acids are found in foods such as walnuts, flaxseeds, fortified milks, and eggs. These fats are also found in cold-water fish, such as sardines, salmon, and mackerel. ? Limit how much you eat of: ? Canned or prepackaged foods. ? Food that is high in trans fat, such as some fried foods. ? Food that is high in saturated fat, such as fatty meat. ? Desserts and other sweets, sugary drinks, and other foods with added sugar. ? Full-fat dairy products. ? Do not salt foods before eating. ? Do not eat more than 4 egg yolks a week. ? Try to eat at least 2 vegetarian meals a week. ? Eat more home-cooked food and less restaurant, buffet, and fast food. Lifestyle ? When eating at a restaurant, ask that your food be prepared with less salt or no salt, if possible. ? If you drink alcohol: ? Limit how much you use to: ? 0?1 drink a day for women who are not . ? 0?2 drinks a day for men. ? Be aware of how much alcohol is in your drink. In the [place] one drink equals one 12 oz bottle of beer (355 mL), one 5 oz glass of wine (148 mL), or one 1? oz glass of hard liquor (44 mL). General information ? Avoid eating more than 2,300 mg of salt a day. If you have hypertension, you may need to reduce your sodium intake to 1,500 mg a day. ? Work with your health care provider to maintain a healthy body weight or to lose weight. Ask what an ideal weight is for you. ? Get at least 30 minutes of exercise that causes your heart to beat faster (aerobic exercise) most days of the week. Activities may include walking, swimming, or biking. ? Work with your health care provider or dietitian to adjust your eating plan to your individual calorie needs. What foods should I eat? Fruits All fresh, dried, or frozen fruit. Canned fruit in natural juice (without added sugar). Vegetables Fresh or frozen vegetables (raw, steamed, roasted, or grilled). Low-sodium or reduced-sodium tomato and vegetable juice. Low-sodium or reduced-sodium tomato sauce and tomato paste. Low-sodium or reduced-sodium canned vegetables. Grains Whole-grain or whole-wheat bread. Whole-grain or whole-wheat pasta. Brown rice. Oatmeal. Quinoa. Bulgur. Whole-grain and low-sodium cereals. Mary bread. Low-fat, low-sodium crackers. Whole-wheat flour tortillas. Meats and other proteins Skinless chicken or turkey. Ground chicken or turkey. Pork with fat trimmed off. Fish and seafood. Egg whites. Dried beans, peas, or lentils. Unsalted nuts, nut butters, and seeds. Unsalted canned beans. Lean cuts of beef with fat trimmed off. Low-sodium, lean precooked or cured meat, such as sausages or meat loaves. Dairy Low-fat (1%) or fat-free (skim) milk. Reduced-fat, low-fat, or fat-free cheeses. Nonfat, low-sodium ricotta or cottage cheese. Low-fat or nonfat yogurt. Low-fat, low-sodium cheese. Fats and oils Soft margarine without trans fats. Vegetable oil. Reduced-fat, low-fat, or light mayonnaise and salad dressings (reduced-sodium). Canola, safflower, olive, avocado, soybean, and sunflower oils. Avocado. Seasonings and condiments He (more content not included)... [facility] 02-19-2024 Hospital Discharg e instructions Patient Education 02/19/2024 08:07:42 DASH Eating Plan DASH Eating Plan DASH stands for Dietary Approaches to Stop Hypertension. The DASH eating plan is a healthy eating plan that has been shown to: Reduce high blood pressure (hypertension). Reduce your risk for type 2 diabetes, heart disease, and stroke. Help with weight loss. What are tips for following this plan? Reading food labels Check food labels for the amount of salt (sodium) per serving. Choose foods with less than 5 percent of the Daily Value of sodium. Generally, foods with less than 300 milligrams (mg) of sodium per serving fit into this eating plan. To find whole grains, look for the word whole as the first word in the ingredient list. Shopping Buy products labeled as low-sodium or no salt added. Buy fresh foods. Avoid canned foods and pre-made or frozen meals. Cooking Avoid adding salt when cooking. Use salt-free seasonings or herbs instead of table salt or sea salt. Check with your health care provider or pharmacist before using salt substitutes. Do not betancur foods. Cook foods using healthy methods such as baking, boiling, grilling, roasting, and broiling instead. Cook with heart-healthy oils, such as olive, canola, avocado, soybean, or sunflower oil. Meal planning Eat a balanced diet that includes: ?4 or more servings of fruits and 4 or more servings of vegetables each day. Try to fill one-half of your plate with fruits and vegetables. ?6 8 servings of whole grains each day. ?Less than 6 oz (170 g) of lean meat, poultry, or fish each day. A 3-oz (85-g) serving of meat is about the same size as a deck of cards. One egg equals 1 oz (28 g). ?2 3 servings of low-fat dairy each day. One serving is 1 cup (237 mL). ?1 serving of nuts, seeds, or beans 5 times each week. ?2 3 servings of heart-healthy fats. Healthy fats called omega-3 fatty acids are found in foods such as walnuts, flaxseeds, fortified milks, and eggs. These fats are also found in cold-water fish, such as sardines, salmon, and mackerel. Limit how much you eat of: ?Canned or prepackaged foods. ?Food that is high in trans fat, such as some fried foods. ?Food that is high in saturated fat, such as fatty meat. ?Desserts and other sweets, sugary drinks, and other foods with added sugar. ?Full-fat dairy products. Do not salt foods before eating. Do not eat more than 4 egg yolks a week. Try to eat at least 2 vegetarian meals a week. Eat more home-cooked food and less restaurant, buffet, and fast food. Lifestyle When eating at a restaurant, ask that your food be prepared with less salt or no salt, if possible. If you drink alcohol: ?Limit how much you use to: ?0 1 drink a day for women who are not . ?0 2 drinks a day for men. ?Be aware of how much alcohol is in your drink. In the [place] one drink equals one 12 oz bottle of beer (355 mL), one 5 oz glass of wine (148 mL), or one 1 oz glass of hard liquor (44 mL). General information Avoid eating more than 2,300 mg of salt a day. If you have hypertension, you may need to reduce your sodium intake to 1,500 mg a day. Work with your health care provider to maintain a healthy body weight or to lose weight. Ask what an ideal weight is for you. Get at least 30 minutes of exercise that causes your heart to beat faster (aerobic exercise) most days of the week. Activities may include walking, swimming, or biking. Work with your health care provider or dietitian to adjust your eating plan to your individual calorie needs. What foods should I eat? Fruits All fresh, dried, or frozen fruit. Canned fruit in natural juice (without added sugar). Vegetables Fresh or frozen vegetables (raw, steamed, roasted, or grilled). Low-sodium or reduced-sodium tomato and vegetable juice. Low-sodium or reduced-sodium tomato sauce and tomato paste. Low-sodium or reduced-sodium canned vegetables. Grains Whole-grain or whole-wheat bread. Whole-grain or whole-wheat pasta. Brown rice. Oatmeal. Quinoa. Bulgur. Whole-grain and low-sodium cereals. Mary bread. Low-fat, low-sodium crackers. Whole-wheat flour tortillas. Meats and other proteins Skinless chicken or turkey. Ground chicken or turkey. Pork with fat trimmed off. Fish and seafood. Egg whites. Dried beans, peas, or lentils. Unsalted nuts, nut butters, and seeds. Unsalted canned beans. Lean cuts of beef with fat trimmed off. Low-sodium, lean precooked or cured meat, such as sausages or meat loaves. Dairy Low-fat (1%) or fat-free (skim) milk. Reduced-fat, low-fat, or fat-free cheeses. Nonfat, low-sodium ricotta or cottage cheese. Low-fat or nonfat yogurt. Low-fat, low-sodium cheese. Fats and oils Soft margarine without trans fats. Vegetable oil. Reduced-fat, low-fat, or light mayonnaise and salad dressings (reduced-sodium). Canola, safflower, olive, avocado, soybean, and sunflower oils. Avocado. Seasonings and condiments Herbs. Spices. Seasoning mixes without salt. Other foods Unsalted popcorn and pretzels. Fat-free sweets. The items listed above may not be a complete list of foods and beverages you can eat. Contact a dietitian for more information. What foods should I avoid? Fruits Canned fruit in a light or heavy syrup. Fried fruit. Fruit in cream or butter sauce. Vegetables Creamed or fried vegetables. Vegetables in a cheese sauce. Regular canned vegetables (not low-sodium or reduced-sodium). Regular canned tomato sauce and paste (not low-sodium or reduced-sodium). Regular tomato and vegetable juice (not low-sodium or reduced-sodium). Pickles. Olives. Grains Baked goods made with fat, such as croissants, muffins, or some breads. Dry pasta or rice meal packs. Meats and other proteins Fatty cuts of meat. Ribs. Fried meat. Diaz. Bologna, salami, and other precooked or cured meats, such as sausages or meat loaves. Fat from the back of a pig (fatback). Bratwurst. Salted nuts and seeds. Canned beans with added salt. Canned or smoked fish. Whole eggs or egg yolks. Chicken or turkey with skin. Dairy Whole or 2% milk, cream, and [id number]. Whole or full-fat cream cheese. Whole-fat or sweetened yogurt. Full-fat cheese. Nondairy creamers. Whipped toppings. Processed cheese and cheese spreads. Fats and oils Butter. Stick margarine. Lard. Shortening. Ghee. Diaz fat. Tropical oils, such as coconut, palm kernel, or palm oil. Seasonings and condiments Onion salt, garlic salt, seasoned salt, table salt, and sea salt. Worcestershire sauce. Tartar sauce. Barbecue sauce. Teriyaki sauce. Soy sauce, including reduced-sodium. Steak sauce. Canned and packaged gravies. Fish sauce. Oyster sauce. Cocktail sauce. Store-bought horseradish. Ketchup. Mustard. Meat flavorings and tenderizers. Bouillon cubes. Hot sauces. Pre-made or packaged marinades. Pre-made or packaged taco seasonings. Relishes. Regular salad dressings. Other foods Salted popcorn and pretzels. The items listed above may not be a complete list of foods and beverages you should avoid. Contact a dietitian for more information. Where to find more information National Heart, Lung, and Blood [place]: www.nhlbi.nih.gov [place] [employer]: www.heart.org Academy of Nutrition and Dietetics: www.eatright.org National Kidney Foundation: www.kidney.org Summary The DASH eating plan is a healthy eating plan that has been shown to reduce high blood pressure (hypertension). It may also reduce your risk for type 2 diabetes, heart disease, and stroke. When on the DASH eating plan, aim to eat more fresh fruits and vegetables, whole grains, lean proteins, low-fat dairy, and heart-healthy fats. With the DASH eating plan, you should limit salt (sodium) intake to 2,300 mg a day. If you have hypertension, you may need to reduce your sodium intake to 1,500 mg a day. Work with your health care provider or dietitian to adjust your eating plan to your individual calorie needs. This information is not intended to replace advice given to you by your health care provider. Make sure you discuss any questions you have with your health care provider. Document Revised: 07/10/2020 Document Reviewed: 07/10/2020 [employer] Patient Education 2022 [employer]. 02/19/2024 08:07:42 BMI for Adults BMI for Adults What is BMI? Body mass index (BMI) is a number that is calculated from a person's weight and height. BMI can help estimate how much of a person's weight is composed of fat. BMI does not measure body fat directly. Rather, it is an alternative to procedures that directly measure body fat, which can be difficult and expensive. BMI can help identify people who may be at higher risk for certain medical problems. What are BMI measurements used for? BMI is used as a screening tool to identify possible weight problems. It helps determine whether a person is obese, overweight, a healthy weight, or underweight. BMI is useful for: Identifying a weight problem that may be related to a medical condition or may increase the risk for medical problems. Promoting changes, such as changes in diet and exercise, to help reach a healthy weight. BMI screening can be repeated to see if these changes are working. How is BMI calculated? BMI involves measuring your weight in relation to your height. Both height and weight are measured, and the BMI is calculated from those numbers. This can be done either in [place] ([place] or metric measurements. Note that charts and online BMI calculators are available to help you find your BMI quickly and easily without having to do these calculations yourself. To calculate your BMI in [place] ([place] measurements: 1.Measure your weight in pounds (lb). 2.Multiply the number of pounds by 703. For example, for a person who weighs 180 lb, multiply that number by 703, which equals 126,540. 3.Measure your height in inches. Then multiply that number by itself to get a measurement called inches squared. For example, for a person who is 70 inches tall, the inches squared measurement is 70 inches x 70 inches, which equals 4,900 inches squared. 4.Divide the total from step 2 (number of lb x 703) by the total from step 3 (inches squared): 126,540 4,900 = 25.8. This is your BMI. To calculate your BMI in metric measurements: 1.Measure your weight in kilograms (kg). 2.Measure your height in meters (m). Then multiply that number by itself to get a measurement called meters squared. For example, for a person who is 1.75 m tall, the meters squared measurement is 1.75 m x 1.75 m, which is equal to 3.1 meters squared. 3.Divide the number of kilograms (your weight) by the meters squared number. In this example: 70 3.1 = 22.6. This is your BMI. What do the results mean? BMI charts are used to identify whether you are underweight, normal weight, overweight, or obese. The following guidelines will be used: Underweight: BMI less than 18.5. Normal weight: BMI between 18.5 and 24.9. Overweight: BMI between 25 and 29.9. Obese: BMI of 30 or above. Keep these notes in mind: Weight includes both fat and muscle, so someone with a muscular build, such as an athlete, may have a BMI that is higher than 24.9. In cases like these, BMI is not an accurate measure of body fat. To determine if excess body fat is the cause of a BMI of 25 or higher, further assessments may need to be done by a health care provider. BMI is usually interpreted in the same way for men and women. Where to find more information For more information about BMI, including tools to quickly calculate your BMI, go to these websites: Centers for Disease Control and Prevention: www.cdc.gov [place] [employer]: www.heart.org National Heart, Lung, and Blood [place]: www.nhlbi.nih.gov Summary Body mass index (BMI) is a number that is calculated from a person's weight and height. BMI may help estimate how much of a person's weight is composed of fat. BMI can help identify those who may be at higher risk for certain medical problems. BMI can be measured using [place] measurements or metric measurements. BMI charts are used to identify whether you are underweight, normal weight, overweight, or obese. This information is not intended to replace advice given to you by your health care provider. Make sure you discuss any questions you have with your health care provider. Document Revised: 04/29/2020 Document Reviewed: 03/06/2020 [employer] Patient Education 2022 [employer]. Follow Up Care 01/19/2024 07:57:59 With:Lynnette Dean CNP Address: [address] [place] [phone] When:Within 6 Week(s) Comments:Medication review [facility] [place] 02-19-2024 Note Patient Education Nutrition DASH Eating Plan DASH stands for Dietary Approaches to Stop Hypertension. The DASH eating plan is a healthy eating plan that has been shown to: ? Reduce high blood pressure (hypertension). ? Reduce your risk for type 2 diabetes, heart disease, and stroke. ? Help with weight loss. What are tips for following this plan? Reading food labels ? Check food labels for the amount of salt (sodium) per serving. Choose foods with less than 5 percent of the Daily Value of sodium. Generally, foods with less than 300 milligrams (mg) of sodium per serving fit into this eating plan. ? To find whole grains, look for the word whole as the first word in the ingredient list. Shopping ? Buy products labeled as low-sodium or no salt added. ? Buy fresh foods. Avoid canned foods and pre-made or frozen meals. Cooking ? Avoid adding salt when cooking. Use salt-free seasonings or herbs instead of table salt or sea salt. Check with your health care provider or pharmacist before using salt substitutes. ? Do not betancur foods. Cook foods using healthy methods such as baking, boiling, grilling, roasting, and broiling instead. ? Cook with heart-healthy oils, such as olive, canola, avocado, soybean, or sunflower oil. Meal planning ? Eat a balanced diet that includes: ? 4 or more servings of fruits and 4 or more servings of vegetables each day. Try to fill one-half of your plate with fruits and vegetables. ? 6?8 servings of whole grains each day. ? Less than 6 oz (170 g) of lean meat, poultry, or fish each day. A 3-oz (85-g) serving of meat is about the same size as a deck of cards. One egg equals 1 oz (28 g). ? 2?3 servings of low-fat dairy each day. One serving is 1 cup (237 mL). ? 1 serving of nuts, seeds, or beans 5 times each week. ? 2?3 servings of heart-healthy fats. Healthy fats called omega-3 fatty acids are found in foods such as walnuts, flaxseeds, fortified milks, and eggs. These fats are also found in cold-water fish, such as sardines, salmon, and mackerel. ? Limit how much you eat of: ? Canned or prepackaged foods. ? Food that is high in trans fat, such as some fried foods. ? Food that is high in saturated fat, such as fatty meat. ? Desserts and other sweets, sugary drinks, and other foods with added sugar. ? Full-fat dairy products. ? Do not salt foods before eating. ? Do not eat more than 4 egg yolks a week. ? Try to eat at least 2 vegetarian meals a week. ? Eat more home-cooked food and less restaurant, buffet, and fast food. Lifestyle ? When eating at a restaurant, ask that your food be prepared with less salt or no salt, if possible. ? If you drink alcohol: ? Limit how much you use to: ? 0?1 drink a day for women who are not . ? 0?2 drinks a day for men. ? Be aware of how much alcohol is in your drink. In the [place] one drink equals one 12 oz bottle of beer (355 mL), one 5 oz glass of wine (148 mL), or one 1? oz glass of hard liquor (44 mL). General information ? Avoid eating more than 2,300 mg of salt a day. If you have hypertension, you may need to reduce your sodium intake to 1,500 mg a day. ? Work with your health care provider to maintain a healthy body weight or to lose weight. Ask what an ideal weight is for you. ? Get at least 30 minutes of exercise that causes your heart to beat faster (aerobic exercise) most days of the week. Activities may include walking, swimming, or biking. ? Work with your health care provider or dietitian to adjust your eating plan to your individual calorie needs. What foods should I eat? Fruits All fresh, dried, or frozen fruit. Canned fruit in natural juice (without added sugar). Vegetables Fresh or frozen vegetables (raw, steamed, roasted, or grilled). Low-sodium or reduced-sodium tomato and vegetable juice. Low-sodium or reduced-sodium tomato sauce and tomato paste. Low-sodium or reduced-sodium canned vegetables. Grains Whole-grain or whole-wheat bread. Whole-grain or whole-wheat pasta. Brown rice. Oatmeal. Quinoa. Bulgur. Whole-grain and low-sodium cereals. Mary bread. Low-fat, low-sodium crackers. Whole-wheat flour tortillas. Meats and other proteins Skinless chicken or turkey. Ground chicken or turkey. Pork with fat trimmed off. Fish and seafood. Egg whites. Dried beans, peas, or lentils. Unsalted nuts, nut butters, and seeds. Unsalted canned beans. Lean cuts of beef with fat trimmed off. Low-sodium, lean precooked or cured meat, such as sausages or meat loaves. Dairy Low-fat (1%) or fat-free (skim) milk. Reduced-fat, low-fat, or fat-free cheeses. Nonfat, low-sodium ricotta or cottage cheese. Low-fat or nonfat yogurt. Low-fat, low-sodium cheese. Fats and oils Soft margarine without trans fats. Vegetable oil. Reduced-fat, low-fat, or light mayonnaise and salad dressings (reduced-sodium). Canola, safflower, olive, avocado, soybean, and sunflower oils. Avocado. Seasonings and condiments He (more content not included)... [facility] 01-19-2024 Hospital Discharg e instructions Patient Education 01/19/2024 07:45:56 DASH Eating Plan DASH Eating Plan DASH stands for Dietary Approaches to Stop Hypertension. The DASH eating plan is a healthy eating plan that has been shown to: Reduce high blood pressure (hypertension). Reduce your risk for type 2 diabetes, heart disease, and stroke. Help with weight loss. What are tips for following this plan? Reading food labels Check food labels for the amount of salt (sodium) per serving. Choose foods with less than 5 percent of the Daily Value of sodium. Generally, foods with less than 300 milligrams (mg) of sodium per serving fit into this eating plan. To find whole grains, look for the word whole as the first word in the ingredient list. Shopping Buy products labeled as low-sodium or no salt added. Buy fresh foods. Avoid canned foods and pre-made or frozen meals. Cooking Avoid adding salt when cooking. Use salt-free seasonings or herbs instead of table salt or sea salt. Check with your health care provider or pharmacist before using salt substitutes. Do not betancur foods. Cook foods using healthy methods such as baking, boiling, grilling, roasting, and broiling instead. Cook with heart-healthy oils, such as olive, canola, avocado, soybean, or sunflower oil. Meal planning Eat a balanced diet that includes: ?4 or more servings of fruits and 4 or more servings of vegetables each day. Try to fill one-half of your plate with fruits and vegetables. ?6 8 servings of whole grains each day. ?Less than 6 oz (170 g) of lean meat, poultry, or fish each day. A 3-oz (85-g) serving of meat is about the same size as a deck of cards. One egg equals 1 oz (28 g). ?2 3 servings of low-fat dairy each day. One serving is 1 cup (237 mL). ?1 serving of nuts, seeds, or beans 5 times each week. ?2 3 servings of heart-healthy fats. Healthy fats called omega-3 fatty acids are found in foods such as walnuts, flaxseeds, fortified milks, and eggs. These fats are also found in cold-water fish, such as sardines, salmon, and mackerel. Limit how much you eat of: ?Canned or prepackaged foods. ?Food that is high in trans fat, such as some fried foods. ?Food that is high in saturated fat, such as fatty meat. ?Desserts and other sweets, sugary drinks, and other foods with added sugar. ?Full-fat dairy products. Do not salt foods before eating. Do not eat more than 4 egg yolks a week. Try to eat at least 2 vegetarian meals a week. Eat more home-cooked food and less restaurant, buffet, and fast food. Lifestyle When eating at a restaurant, ask that your food be prepared with less salt or no salt, if possible. If you drink alcohol: ?Limit how much you use to: ?0 1 drink a day for women who are not . ?0 2 drinks a day for men. ?Be aware of how much alcohol is in your drink. In the [place] one drink equals one 12 oz bottle of beer (355 mL), one 5 oz glass of wine (148 mL), or one 1 oz glass of hard liquor (44 mL). General information Avoid eating more than 2,300 mg of salt a day. If you have hypertension, you may need to reduce your sodium intake to 1,500 mg a day. Work with your health care provider to maintain a healthy body weight or to lose weight. Ask what an ideal weight is for you. Get at least 30 minutes of exercise that causes your heart to beat faster (aerobic exercise) most days of the week. Activities may include walking, swimming, or biking. Work with your health care provider or dietitian to adjust your eating plan to your individual calorie needs. What foods should I eat? Fruits All fresh, dried, or frozen fruit. Canned fruit in natural juice (without added sugar). Vegetables Fresh or frozen vegetables (raw, steamed, roasted, or grilled). Low-sodium or reduced-sodium tomato and vegetable juice. Low-sodium or reduced-sodium tomato sauce and tomato paste. Low-sodium or reduced-sodium canned vegetables. Grains Whole-grain or whole-wheat bread. Whole-grain or whole-wheat pasta. Brown rice. Oatmeal. Quinoa. Bulgur. Whole-grain and low-sodium cereals. Mary bread. Low-fat, low-sodium crackers. Whole-wheat flour tortillas. Meats and other proteins Skinless chicken or turkey. Ground chicken or turkey. Pork with fat trimmed off. Fish and seafood. Egg whites. Dried beans, peas, or lentils. Unsalted nuts, nut butters, and seeds. Unsalted canned beans. Lean cuts of beef with fat trimmed off. Low-sodium, lean precooked or cured meat, such as sausages or meat loaves. Dairy Low-fat (1%) or fat-free (skim) milk. Reduced-fat, low-fat, or fat-free cheeses. Nonfat, low-sodium ricotta or cottage cheese. Low-fat or nonfat yogurt. Low-fat, low-sodium cheese. Fats and oils Soft margarine without trans fats. Vegetable oil. Reduced-fat, low-fat, or light mayonnaise and salad dressings (reduced-sodium). Canola, safflower, olive, avocado, soybean, and sunflower oils. Avocado. Seasonings and condiments Herbs. Spices. Seasoning mixes without salt. Other foods Unsalted popcorn and pretzels. Fat-free sweets. The items listed above may not be a complete list of foods and beverages you can eat. Contact a dietitian for more information. What foods should I avoid? Fruits Canned fruit in a light or heavy syrup. Fried fruit. Fruit in cream or butter sauce. Vegetables Creamed or fried vegetables. Vegetables in a cheese sauce. Regular canned vegetables (not low-sodium or reduced-sodium). Regular canned tomato sauce and paste (not low-sodium or reduced-sodium). Regular tomato and vegetable juice (not low-sodium or reduced-sodium). Pickles. Olives. Grains Baked goods made with fat, such as croissants, muffins, or some breads. Dry pasta or rice meal packs. Meats and other proteins Fatty cuts of meat. Ribs. Fried meat. Diaz. Bologna, salami, and other precooked or cured meats, such as sausages or meat loaves. Fat from the back of a pig (fatback). Bratwurst. Salted nuts and seeds. Canned beans with added salt. Canned or smoked fish. Whole eggs or egg yolks. Chicken or turkey with skin. Dairy Whole or 2% milk, cream, and [id number]. Whole or full-fat cream cheese. Whole-fat or sweetened yogurt. Full-fat cheese. Nondairy creamers. Whipped toppings. Processed cheese and cheese spreads. Fats and oils Butter. Stick margarine. Lard. Shortening. Ghee. Diaz fat. Tropical oils, such as coconut, palm kernel, or palm oil. Seasonings and condiments Onion salt, garlic salt, seasoned salt, table salt, and sea salt. Worcestershire sauce. Tartar sauce. Barbecue sauce. Teriyaki sauce. Soy sauce, including reduced-sodium. Steak sauce. Canned and packaged gravies. Fish sauce. Oyster sauce. Cocktail sauce. Store-bought horseradish. Ketchup. Mustard. Meat flavorings and tenderizers. Bouillon cubes. Hot sauces. Pre-made or packaged marinades. Pre-made or packaged taco seasonings. Relishes. Regular salad dressings. Other foods Salted popcorn and pretzels. The items listed above may not be a complete list of foods and beverages you should avoid. Contact a dietitian for more information. Where to find more information National Heart, Lung, and Blood [place]: www.nhlbi.nih.gov [place] [employer] Association: www.heart.org Academy of Nutrition and Dietetics: www.eatright.org National Kidney Foundation: www.kidney.org Summary The DASH eating plan is a healthy eating plan that has been shown to reduce high blood pressure (hypertension). It may also reduce your risk for type 2 diabetes, heart disease, and stroke. When on the DASH eating plan, aim to eat more fresh fruits and vegetables, whole grains, lean proteins, low-fat dairy, and heart-healthy fats. With the DASH eating plan, you should limit salt (sodium) intake to 2,300 mg a day. If you have hypertension, you may need to reduce your sodium intake to 1,500 mg a day. Work with your health care provider or dietitian to adjust your eating plan to your individual calorie needs. This information is not intended to replace advice given to you by your health care provider. Make sure you discuss any questions you have with your health care provider. Document Revised: 07/10/2020 Document Reviewed: 07/10/2020 [employer] Patient Education 2022 [employer]. 01/19/2024 07:45:51 BMI for Adults BMI for Adults What is BMI? Body mass index (BMI) is a number that is calculated from a person's weight and height. BMI can help estimate how much of a person's weight is composed of fat. BMI does not measure body fat directly. Rather, it is an alternative to procedures that directly measure body fat, which can be difficult and expensive. BMI can help identify people who may be at higher risk for certain medical problems. What are BMI measurements used for? BMI is used as a screening tool to identify possible weight problems. It helps determine whether a person is obese, overweight, a healthy weight, or underweight. BMI is useful for: Identifying a weight problem that may be related to a medical condition or may increase the risk for medical problems. Promoting changes, such as changes in diet and exercise, to help reach a healthy weight. BMI screening can be repeated to see if these changes are working. How is BMI calculated? BMI involves measuring your weight in relation to your height. Both height and weight are measured, and the BMI is calculated from those numbers. This can be done either in [place] or metric measurements. Note that charts and online BMI calculators are available to help you find your BMI quickly and easily without having to do these calculations yourself. To calculate your BMI in [place] measurements: 1.Measure your weight in pounds (lb). 2.Multiply the number of pounds by 703. For example, for a person who weighs 180 lb, multiply that number by 703, which equals 126,540. 3.Measure your height in inches. Then multiply that number by itself to get a measurement called inches squared. For example, for a person who is 70 inches tall, the inches squared measurement is 70 inches x 70 inches, which equals 4,900 inches squared. 4.Divide the total from step 2 (number of lb x 703) by the total from step 3 (inches squared): 126,540 4,900 = 25.8. This is your BMI. To calculate your BMI in metric measurements: 1.Measure your weight in kilograms (kg). 2.Measure your height in meters (m). Then multiply that number by itself to get a measurement called meters squared. For example, for a person who is 1.75 m tall, the meters squared measurement is 1.75 m x 1.75 m, which is equal to 3.1 meters squared. 3.Divide the number of kilograms (your weight) by the meters squared number. In this example: 70 3.1 = 22.6. This is your BMI. What do the results mean? BMI charts are used to identify whether you are underweight, normal weight, overweight, or obese. The following guidelines will be used: Underweight: BMI less than 18.5. Normal weight: BMI between 18.5 and 24.9. Overweight: BMI between 25 and 29.9. Obese: BMI of 30 or above. Keep these notes in mind: Weight includes both fat and muscle, so someone with a muscular build, such as an athlete, may have a BMI that is higher than 24.9. In cases like these, BMI is not an accurate measure of body fat. To determine if excess body fat is the cause of a BMI of 25 or higher, further assessments may need to be done by a health care provider. BMI is usually interpreted in the same way for men and women. Where to find more information For more information about BMI, including tools to quickly calculate your BMI, go to these websites: Centers for Disease Control and Prevention: www.cdc.gov [place] [employer]: www.heart.org National Heart, Lung, and Blood [place]: www.nhlbi.nih.gov Summary Body mass index (BMI) is a number that is calculated from a person's weight and height. BMI may help estimate how much of a person's weight is composed of fat. BMI can help identify those who may be at higher risk for certain medical problems. BMI can be measured using [place]ic measurements or metric measurements. BMI charts are used to identify whether you are underweight, normal weight, overweight, or obese. This information is not intended to replace advice given to you by your health care provider. Make sure you discuss any questions you have with your health care provider. Document Revised: 04/29/2020 Document Reviewed: 03/06/2020 [employer] Patient Education 2022 [employer]. Follow Up Care 12/22/2023 08:29:22 With:Elvia Dean CNPindshayne Soto Address: [address] [place] [phone] When:Within 1 Month(s) Comments:weight management [facility] [place] 12-22-2023 Hospital Discharg e instructions Patient Education 12/22/2023 08:14:06 DASH Eating Plan DASH Eating Plan DASH stands for Dietary Approaches to Stop Hypertension. The DASH eating plan is a healthy eating plan that has been shown to: Reduce high blood pressure (hypertension). Reduce your risk for type 2 diabetes, heart disease, and stroke. Help with weight loss. What are tips for following this plan? Reading food labels Check food labels for the amount of salt (sodium) per serving. Choose foods with less than 5 percent of the Daily Value of sodium. Generally, foods with less than 300 milligrams (mg) of sodium per serving fit into this eating plan. To find whole grains, look for the word whole as the first word in the ingredient list. Shopping Buy products labeled as low-sodium or no salt added. Buy fresh foods. Avoid canned foods and pre-made or frozen meals. Cooking Avoid adding salt when cooking. Use salt-free seasonings or herbs instead of table salt or sea salt. Check with your health care provider or pharmacist before using salt substitutes. Do not betancur foods. Cook foods using healthy methods such as baking, boiling, grilling, roasting, and broiling instead. Cook with heart-healthy oils, such as olive, canola, avocado, soybean, or sunflower oil. Meal planning Eat a balanced diet that includes: ?4 or more servings of fruits and 4 or more servings of vegetables each day. Try to fill one-half of your plate with fruits and vegetables. ?6 8 servings of whole grains each day. ?Less than 6 oz (170 g) of lean meat, poultry, or fish each day. A 3-oz (85-g) serving of meat is about the same size as a deck of cards. One egg equals 1 oz (28 g). ?2 3 servings of low-fat dairy each day. One serving is 1 cup (237 mL). ?1 serving of nuts, seeds, or beans 5 times each week. ?2 3 servings of heart-healthy fats. Healthy fats called omega-3 fatty acids are found in foods such as walnuts, flaxseeds, fortified milks, and eggs. These fats are also found in cold-water fish, such as sardines, salmon, and mackerel. Limit how much you eat of: ?Canned or prepackaged foods. ?Food that is high in trans fat, such as some fried foods. ?Food that is high in saturated fat, such as fatty meat. ?Desserts and other sweets, sugary drinks, and other foods with added sugar. ?Full-fat dairy products. Do not salt foods before eating. Do not eat more than 4 egg yolks a week. Try to eat at least 2 vegetarian meals a week. Eat more home-cooked food and less restaurant, buffet, and fast food. Lifestyle When eating at a restaurant, ask that your food be prepared with less salt or no salt, if possible. If you drink alcohol: ?Limit how much you use to: ?0 1 drink a day for women who are not . ?0 2 drinks a day for men. ?Be aware of how much alcohol is in your drink. In the [place] one drink equals one 12 oz bottle of beer (355 mL), one 5 oz glass of wine (148 mL), or one 1 oz glass of hard liquor (44 mL). General information Avoid eating more than 2,300 mg of salt a day. If you have hypertension, you may need to reduce your sodium intake to 1,500 mg a day. Work with your health care provider to maintain a healthy body weight or to lose weight. Ask what an ideal weight is for you. Get at least 30 minutes of exercise that causes your heart to beat faster (aerobic exercise) most days of the week. Activities may include walking, swimming, or biking. Work with your health care provider or dietitian to adjust your eating plan to your individual calorie needs. What foods should I eat? Fruits All fresh, dried, or frozen fruit. Canned fruit in natural juice (without added sugar). Vegetables Fresh or frozen vegetables (raw, steamed, roasted, or grilled). Low-sodium or reduced-sodium tomato and vegetable juice. Low-sodium or reduced-sodium tomato sauce and tomato paste. Low-sodium or reduced-sodium canned vegetables. Grains Whole-grain or whole-wheat bread. Whole-grain or whole-wheat pasta. Brown rice. Oatmeal. Quinoa. Bulgur. Whole-grain and low-sodium cereals. Mary bread. Low-fat, low-sodium crackers. Whole-wheat flour tortillas. Meats and other proteins Skinless chicken or turkey. Ground chicken or turkey. Pork with fat trimmed off. Fish and seafood. Egg whites. Dried beans, peas, or lentils. Unsalted nuts, nut butters, and seeds. Unsalted canned beans. Lean cuts of beef with fat trimmed off. Low-sodium, lean precooked or cured meat, such as sausages or meat loaves. Dairy Low-fat (1%) or fat-free (skim) milk. Reduced-fat, low-fat, or fat-free cheeses. Nonfat, low-sodium ricotta or cottage cheese. Low-fat or nonfat yogurt. Low-fat, low-sodium cheese. Fats and oils Soft margarine without trans fats. Vegetable oil. Reduced-fat, low-fat, or light mayonnaise and salad dressings (reduced-sodium). Canola, safflower, olive, avocado, soybean, and sunflower oils. Avocado. Seasonings and condiments Herbs. Spices. Seasoning mixes without salt. Other foods Unsalted popcorn and pretzels. Fat-free sweets. The items listed above may not be a complete list of foods and beverages you can eat. Contact a dietitian for more information. What foods should I avoid? Fruits Canned fruit in a light or heavy syrup. Fried fruit. Fruit in cream or butter sauce. Vegetables Creamed or fried vegetables. Vegetables in a cheese sauce. Regular canned vegetables (not low-sodium or reduced-sodium). Regular canned tomato sauce and paste (not low-sodium or reduced-sodium). Regular tomato and vegetable juice (not low-sodium or reduced-sodium). Pickles. Olives. Grains Baked goods made with fat, such as croissants, muffins, or some breads. Dry pasta or rice meal packs. Meats and other proteins Fatty cuts of meat. Ribs. Fried meat. Diaz. Bologna, salami, and other precooked or cured meats, such as sausages or meat loaves. Fat from the back of a pig (fatback). Bratwurst. Salted nuts and seeds. Canned beans with added salt. Canned or smoked fish. Whole eggs or egg yolks. Chicken or turkey with skin. Dairy Whole or 2% milk, cream, and [id number]. Whole or full-fat cream cheese. Whole-fat or sweetened yogurt. Full-fat cheese. Nondairy creamers. Whipped toppings. Processed cheese and cheese spreads. Fats and oils Butter. Stick margarine. Lard. Shortening. Ghee. Diaz fat. Tropical oils, such as coconut, palm kernel, or palm oil. Seasonings and condiments Onion salt, garlic salt, seasoned salt, table salt, and sea salt. Worcestershire sauce. Tartar sauce. Barbecue sauce. Teriyaki sauce. Soy sauce, including reduced-sodium. Steak sauce. Canned and packaged gravies. Fish sauce. Oyster sauce. Cocktail sauce. Store-bought horseradish. Ketchup. Mustard. Meat flavorings and tenderizers. Bouillon cubes. Hot sauces. Pre-made or packaged marinades. Pre-made or packaged taco seasonings. Relishes. Regular salad dressings. Other foods Salted popcorn and pretzels. The items listed above may not be a complete list of foods and beverages you should avoid. Contact a dietitian for more information. Where to find more information National Heart, Lung, and Blood [place]: www.nhlbi.nih.gov [place] Heart Association: www.heart.org Academy of Nutrition and Dietetics: www.eatright.org National Kidney Foundation: www.kidney.org Summary The DASH eating plan is a healthy eating plan that has been shown to reduce high blood pressure (hypertension). It may also reduce your risk for type 2 diabetes, heart disease, and stroke. When on the DASH eating plan, aim to eat more fresh fruits and vegetables, whole grains, lean proteins, low-fat dairy, and heart-healthy fats. With the DASH eating plan, you should limit salt (sodium) intake to 2,300 mg a day. If you have hypertension, you may need to reduce your sodium intake to 1,500 mg a day. Work with your health care provider or dietitian to adjust your eating plan to your individual calorie needs. This information is not intended to replace advice given to you by your health care provider. Make sure you discuss any questions you have with your health care provider. Document Revised: 07/10/2020 Document Reviewed: 07/10/2020 [employer] Patient Education 2022 [employer]. 12/22/2023 08:14:00 BMI for Adults BMI for Adults What is BMI? Body mass index (BMI) is a number that is calculated from a person's weight and height. BMI can help estimate how much of a person's weight is composed of fat. BMI does not measure body fat directly. Rather, it is an alternative to procedures that directly measure body fat, which can be difficult and expensive. BMI can help identify people who may be at higher risk for certain medical problems. What are BMI measurements used for? BMI is used as a screening tool to identify possible weight problems. It helps determine whether a person is obese, overweight, a healthy weight, or underweight. BMI is useful for: Identifying a weight problem that may be related to a medical condition or may increase the risk for medical problems. Promoting changes, such as changes in diet and exercise, to help reach a healthy weight. BMI screening can be repeated to see if these changes are working. How is BMI calculated? BMI involves measuring your weight in relation to your height. Both height and weight are measured, and the BMI is calculated from those numbers. This can be done either in [place] ([place] or metric measurements. Note that charts and online BMI calculators are available to help you find your BMI quickly and easily without having to do these calculations yourself. To calculate your BMI in [place] ([place] measurements: 1.Measure your weight in pounds (lb). 2.Multiply the number of pounds by 703. For example, for a person who weighs 180 lb, multiply that number by 703, which equals 126,540. 3.Measure your height in inches. Then multiply that number by itself to get a measurement called inches squared. For example, for a person who is 70 inches tall, the inches squared measurement is 70 inches x 70 inches, which equals 4,900 inches squared. 4.Divide the total from step 2 (number of lb x 703) by the total from step 3 (inches squared): 126,540 4,900 = 25.8. This is your BMI. To calculate your BMI in metric measurements: 1.Measure your weight in kilograms (kg). 2.Measure your height in meters (m). Then multiply that number by itself to get a measurement called meters squared. For example, for a person who is 1.75 m tall, the meters squared measurement is 1.75 m x 1.75 m, which is equal to 3.1 meters squared. 3.Divide the number of kilograms (your weight) by the meters squared number. In this example: 70 3.1 = 22.6. This is your BMI. What do the results mean? BMI charts are used to identify whether you are underweight, normal weight, overweight, or obese. The following guidelines will be used: Underweight: BMI less than 18.5. Normal weight: BMI between 18.5 and 24.9. Overweight: BMI between 25 and 29.9. Obese: BMI of 30 or above. Keep these notes in mind: Weight includes both fat and muscle, so someone with a muscular build, such as an athlete, may have a BMI that is higher than 24.9. In cases like these, BMI is not an accurate measure of body fat. To determine if excess body fat is the cause of a BMI of 25 or higher, further assessments may need to be done by a health care provider. BMI is usually interpreted in the same way for men and women. Where to find more information For more information about BMI, including tools to quickly calculate your BMI, go to these websites: Centers for Disease Control and Prevention: www.cdc.gov [place] Heart Association: www.heart.org National Heart, Lung, and Blood [place]: www.nhlbi.nih.gov Summary Body mass index (BMI) is a number that is calculated from a person's weight and height. BMI may help estimate how much of a person's weight is composed of fat. BMI can help identify those who may be at higher risk for certain medical problems. BMI can be measured using [place]ic measurements or metric measurements. BMI charts are used to identify whether you are underweight, normal weight, overweight, or obese. This information is not intended to replace advice given to you by your health care provider. Make sure you discuss any questions you have with your health care provider. Document Revised: 04/29/2020 Document Reviewed: 03/06/2020 [employer] Patient Education 2022 [employer]. Follow Up Care 11/13/2023 09:40:19 With:Dianne BARRY Lynnette D Address: [address] [place] [phone] When:Within 1 Month(s) Comments:weight management [facility] [place] 11-13-2023 Hospital Discharg e instructions Patient Education 11/13/2023 09:09:42 BMI for Adults BMI for Adults What is BMI? Body mass index (BMI) is a number that is calculated from a person's weight and height. BMI can help estimate how much of a person's weight is composed of fat. BMI does not measure body fat directly. Rather, it is an alternative to procedures that directly measure body fat, which can be difficult and expensive. BMI can help identify people who may be at higher risk for certain medical problems. What are BMI measurements used for? BMI is used as a screening tool to identify possible weight problems. It helps determine whether a person is obese, overweight, a healthy weight, or underweight. BMI is useful for: Identifying a weight problem that may be related to a medical condition or may increase the risk for medical problems. Promoting changes, such as changes in diet and exercise, to help reach a healthy weight. BMI screening can be repeated to see if these changes are working. How is BMI calculated? BMI involves measuring your weight in relation to your height. Both height and weight are measured, and the BMI is calculated from those numbers. This can be done either in [place] ([place] or metric measurements. Note that charts and online BMI calculators are available to help you find your BMI quickly and easily without having to do these calculations yourself. To calculate your BMI in [place] ([place] measurements: 1.Measure your weight in pounds (lb). 2.Multiply the number of pounds by 703. For example, for a person who weighs 180 lb, multiply that number by 703, which equals 126,540. 3.Measure your height in inches. Then multiply that number by itself to get a measurement called inches squared. For example, for a person who is 70 inches tall, the inches squared measurement is 70 inches x 70 inches, which equals 4,900 inches squared. 4.Divide the total from step 2 (number of lb x 703) by the total from step 3 (inches squared): 126,540 4,900 = 25.8. This is your BMI. To calculate your BMI in metric measurements: 1.Measure your weight in kilograms (kg). 2.Measure your height in meters (m). Then multiply that number by itself to get a measurement called meters squared. For example, for a person who is 1.75 m tall, the meters squared measurement is 1.75 m x 1.75 m, which is equal to 3.1 meters squared. 3.Divide the number of kilograms (your weight) by the meters squared number. In this example: 70 3.1 = 22.6. This is your BMI. What do the results mean? BMI charts are used to identify whether you are underweight, normal weight, overweight, or obese. The following guidelines will be used: Underweight: BMI less than 18.5. Normal weight: BMI between 18.5 and 24.9. Overweight: BMI between 25 and 29.9. Obese: BMI of 30 or above. Keep these notes in mind: Weight includes both fat and muscle, so someone with a muscular build, such as an athlete, may have a BMI that is higher than 24.9. In cases like these, BMI is not an accurate measure of body fat. To determine if excess body fat is the cause of a BMI of 25 or higher, further assessments may need to be done by a health care provider. BMI is usually interpreted in the same way for men and women. Where to find more information For more information about BMI, including tools to quickly calculate your BMI, go to these websites: Centers for Disease Control and Prevention: www.cdc.gov [place] Heart Association: www.heart.org National Heart, Lung, and Blood [place]: www.nhlbi.nih.gov Summary Body mass index (BMI) is a number that is calculated from a person's weight and height. BMI may help estimate how much of a person's weight is composed of fat. BMI can help identify those who may be at higher risk for certain medical problems. BMI can be measured using [place]ic measurements or metric measurements. BMI charts are used to identify whether you are underweight, normal weight, overweight, or obese. This information is not intended to replace advice given to you by your health care provider. Make sure you discuss any questions you have with your health care provider. Document Revised: 04/29/2020 Document Reviewed: 03/06/2020 [employer] Patient Education 2022 [employer]. 11/13/2023 09:09:39 Managing Anxiety, Adult Managing Anxiety, Adult After being diagnosed with anxiety, you may be relieved to know why you have felt or behaved a certain way. You may also feel overwhelmed about the treatment ahead and what it will mean for your life. With care and support, you can manage this condition. How to manage lifestyle changes Managing stress and anxiety Stress is your body's reaction to life changes and events, both good and bad. Most stress will last just a few hours, but stress can be ongoing and can lead to more than just stress. Although stress can play a major role in anxiety, it is not the same as anxiety. Stress is usually caused by something external, such as a deadline, test, or competition. Stress normally passes after the triggering event has ended. Anxiety is caused by something internal, such as imagining a terrible outcome or worrying that something will go wrong that will devastate you. Anxiety often does not go away even after the triggering event is over, and it can become long-term (chronic) worry. It is important to understand the differences between stress and anxiety and to manage your stress effectively so that it does not lead to an anxious response. Talk with your health care provider or a counselor to learn more about reducing anxiety and stress. He or she may suggest tension reduction techniques, such as: Music therapy. Spend time creating or listening to music that you enjoy and that inspires you. Mindfulness-based meditation. Practice being aware of your normal breaths while not trying to control your breathing. It can be done while sitting or walking. Centering prayer. This involves focusing on a word, phrase, or sacred image that means something to you and brings you peace. Deep breathing. To do this, expand your stomach and inhale slowly through your nose. Hold your breath for 3 5 seconds. Then exhale slowly, letting your stomach muscles relax. Self-talk. Learn to notice and identify thought patterns that lead to anxiety reactions and change those patterns to thoughts that feel peaceful. Muscle relaxation. Taking time to tense muscles and then relax them. Choose a tension reduction technique that fits your lifestyle and personality. These techniques take time and practice. Set aside 5 15 minutes a day to do them. Therapists can offer counseling and training in these techniques. The training to help with anxiety may be covered by some insurance plans. Other things you can do to manage stress and anxiety include: Keeping a stress diary. This can help you learn what triggers your reaction and then learn ways to manage your response. Thinking about how you react to certain situations. You may not be able to control everything, but you can control your response. Making time for activities that help you relax and not feeling guilty about spending your time in this way. Doing visual imagery. This involves imagining or creating mental pictures to help you relax. Practicing yoga. Through yoga poses, you can lower tension and promote relaxation. Medicines Medicines can help ease symptoms. Medicines for anxiety include: Antidepressant medicines. These are usually prescribed for long-term daily control. Anti-anxiety medicines. These may be added in severe cases, especially when panic attacks occur. Medicines will be prescribed by a health care provider. When used together, medicines, psychotherapy, and tension reduction techniques may be the most effective treatment. Relationships Relationships can play a big part in helping you recover. Try to spend more time connecting with trusted friends and family members. Consider going to couples counseling if you have a partner, taking family education classes, or going to family therapy. Therapy can help you and others better understand your condition. How to recognize changes in your anxiety Everyone responds differently to treatment for anxiety. Recovery from anxiety happens when symptoms decrease and stop interfering with your daily activities at home or work. This may mean that you will start to: Have better concentration and focus. Worry will interfere less in your daily thinking. Sleep better. Be less irritable. Have more energy. Have improved memory. It is also important to recognize when your condition is getting worse. Contact your health care provider if your symptoms interfere with home or work and you feel like your condition is not improving. Follow these instructions at home: Activity Exercise. Adults should do the following: ?Exercise for at least 150 minutes each week. The exercise should increase your heart rate and make you sweat (moderate-intensity exercise). ?Strengthening exercises at least twice a week. Get the right amount and quality of sleep. Most adults need 7 9 hours of sleep each night. Lifestyle Eat a healthy diet that includes plenty of vegetables, fruits, whole grains, low-fat dairy products, and lean protein. ?Do not eat a lot of foods that are high in fats, added sugars, or salt (sodium). Make choices that simplify your life. Do not use any products that contain nicotine or tobacco. These products include cigarettes, chewing tobacco, and vaping devices, such as e-cigarettes. If you need help quitting, ask your health care provider. Avoid caffeine, alcohol, and certain vdui-xdu-dhophxj cold medicines. These may make you feel worse. Ask your pharmacist which medicines to avoid. General instructions Take pgwo-duz-hlpemnn and prescription medicines only as told by your health care provider. Keep all follow-up visits. This is important. Where to find support You can get help and support from these sources: Self-help groups. Online and community organizations. A trusted spiritual leader. Couples counseling. Family education classes. Family therapy. Where to find more information You may find that joining a support group helps you deal with your anxiety. The following sources can help you locate counselors or support groups near you: Mental Health [place]: www.mentalhealthamerica.net Anxiety and Depression Association of [place] (ADAA): www.adaa.org National [place] on Mental Illness ([place]): www.brittani.org Contact a health care provider if: You have a hard time staying focused or finishing daily tasks. You spend many hours a day feeling worried about everyday life. You become exhausted by worry. You start to have headaches or frequently feel tense. You develop chronic nausea or diarrhea. Get help right away if: You have a racing heart and shortness of breath. You have thoughts of hurting yourself or others. If you ever feel like you may hurt yourself or others, or have thoughts about taking your own life, get help right away. Go to your nearest emergency department or: Call your local emergency services (235 in the [place] Call a suicide crisis helpline, such as the National Suicide Prevention Lifeline at or 699 in the [place] This is open 24 hours a day in the [place] Text the Crisis Text Line at 110208 (in the [place] Summary Taking steps to learn and use tension reduction techniques can help calm you and help prevent triggering an anxiety reaction. When used together, medicines, psychotherapy, and tension reduction techniques may be the most effective treatment. Family, friends, and partners can play a big part in supporting you. This information is not intended to replace advice given to you by your health care provider. Make sure you discuss any questions you have with your health care provider. Document Revised: 03/02/2022 Document Reviewed: 11/28/2021 Generic Media Patient Education 2022 [employer]. Follow Up Care 10/23/2023 07:45:38 With:Lynnette Dean CNP Address: [address] [place] [phone] When:Within 1 Month(s) Comments:weight management [facility] [place] 10-23-2023 Hospital Discharg e instructions Patient Education 10/23/2023 07:12:09 DASH Eating Plan DASH Eating Plan DASH stands for Dietary Approaches to Stop Hypertension. The DASH eating plan is a healthy eating plan that has been shown to: Reduce high blood pressure (hypertension). Reduce your risk for type 2 diabetes, heart disease, and stroke. Help with weight loss. What are tips for following this plan? Reading food labels Check food labels for the amount of salt (sodium) per serving. Choose foods with less than 5 percent of the Daily Value of sodium. Generally, foods with less than 300 milligrams (mg) of sodium per serving fit into this eating plan. To find whole grains, look for the word whole as the first word in the ingredient list. Shopping Buy products labeled as low-sodium or no salt added. Buy fresh foods. Avoid canned foods and pre-made or frozen meals. Cooking Avoid adding salt when cooking. Use salt-free seasonings or herbs instead of table salt or sea salt. Check with your health care provider or pharmacist before using salt substitutes. Do not betancur foods. Cook foods using healthy methods such as baking, boiling, grilling, roasting, and broiling instead. Cook with heart-healthy oils, such as olive, canola, avocado, soybean, or sunflower oil. Meal planning Eat a balanced diet that includes: ?4 or more servings of fruits and 4 or more servings of vegetables each day. Try to fill one-half of your plate with fruits and vegetables. ?6 8 servings of whole grains each day. ?Less than 6 oz (170 g) of lean meat, poultry, or fish each day. A 3-oz (85-g) serving of meat is about the same size as a deck of cards. One egg equals 1 oz (28 g). ?2 3 servings of low-fat dairy each day. One serving is 1 cup (237 mL). ?1 serving of nuts, seeds, or beans 5 times each week. ?2 3 servings of heart-healthy fats. Healthy fats called omega-3 fatty acids are found in foods such as walnuts, flaxseeds, fortified milks, and eggs. These fats are also found in cold-water fish, such as sardines, salmon, and mackerel. Limit how much you eat of: ?Canned or prepackaged foods. ?Food that is high in trans fat, such as some fried foods. ?Food that is high in saturated fat, such as fatty meat. ?Desserts and other sweets, sugary drinks, and other foods with added sugar. ?Full-fat dairy products. Do not salt foods before eating. Do not eat more than 4 egg yolks a week. Try to eat at least 2 vegetarian meals a week. Eat more home-cooked food and less restaurant, buffet, and fast food. Lifestyle When eating at a restaurant, ask that your food be prepared with less salt or no salt, if possible. If you drink alcohol: ?Limit how much you use to: ?0 1 drink a day for women who are not . ?0 2 drinks a day for men. ?Be aware of how much alcohol is in your drink. In the [place] one drink equals one 12 oz bottle of beer (355 mL), one 5 oz glass of wine (148 mL), or one 1 oz glass of hard liquor (44 mL). General information Avoid eating more than 2,300 mg of salt a day. If you have hypertension, you may need to reduce your sodium intake to 1,500 mg a day. Work with your health care provider to maintain a healthy body weight or to lose weight. Ask what an ideal weight is for you. Get at least 30 minutes of exercise that causes your heart to beat faster (aerobic exercise) most days of the week. Activities may include walking, swimming, or biking. Work with your health care provider or dietitian to adjust your eating plan to your individual calorie needs. What foods should I eat? Fruits All fresh, dried, or frozen fruit. Canned fruit in natural juice (without added sugar). Vegetables Fresh or frozen vegetables (raw, steamed, roasted, or grilled). Low-sodium or reduced-sodium tomato and vegetable juice. Low-sodium or reduced-sodium tomato sauce and tomato paste. Low-sodium or reduced-sodium canned vegetables. Grains Whole-grain or whole-wheat bread. Whole-grain or whole-wheat pasta. Brown rice. Oatmeal. Quinoa. Bulgur. Whole-grain and low-sodium cereals. Mary bread. Low-fat, low-sodium crackers. Whole-wheat flour tortillas. Meats and other proteins Skinless chicken or turkey. Ground chicken or turkey. Pork with fat trimmed off. Fish and seafood. Egg whites. Dried beans, peas, or lentils. Unsalted nuts, nut butters, and seeds. Unsalted canned beans. Lean cuts of beef with fat trimmed off. Low-sodium, lean precooked or cured meat, such as sausages or meat loaves. Dairy Low-fat (1%) or fat-free (skim) milk. Reduced-fat, low-fat, or fat-free cheeses. Nonfat, low-sodium ricotta or cottage cheese. Low-fat or nonfat yogurt. Low-fat, low-sodium cheese. Fats and oils Soft margarine without trans fats. Vegetable oil. Reduced-fat, low-fat, or light mayonnaise and salad dressings (reduced-sodium). Canola, safflower, olive, avocado, soybean, and sunflower oils. Avocado. Seasonings and condiments Herbs. Spices. Seasoning mixes without salt. Other foods Unsalted popcorn and pretzels. Fat-free sweets. The items listed above may not be a complete list of foods and beverages you can eat. Contact a dietitian for more information. What foods should I avoid? Fruits Canned fruit in a light or heavy syrup. Fried fruit. Fruit in cream or butter sauce. Vegetables Creamed or fried vegetables. Vegetables in a cheese sauce. Regular canned vegetables (not low-sodium or reduced-sodium). Regular canned tomato sauce and paste (not low-sodium or reduced-sodium). Regular tomato and vegetable juice (not low-sodium or reduced-sodium). Pickles. Olives. Grains Baked goods made with fat, such as croissants, muffins, or some breads. Dry pasta or rice meal packs. Meats and other proteins Fatty cuts of meat. Ribs. Fried meat. Diaz. Bologna, salami, and other precooked or cured meats, such as sausages or meat loaves. Fat from the back of a pig (fatback). Bratwurst. Salted nuts and seeds. Canned beans with added salt. Canned or smoked fish. Whole eggs or egg yolks. Chicken or turkey with skin. Dairy Whole or 2% milk, cream, and hunp-zal-hpjw. Whole or full-fat cream cheese. Whole-fat or sweetened yogurt. Full-fat cheese. Nondairy creamers. Whipped toppings. Processed cheese and cheese spreads. Fats and oils Butter. Stick margarine. Lard. Shortening. Ghee. Diaz fat. Tropical oils, such as coconut, palm kernel, or palm oil. Seasonings and condiments Onion salt, garlic salt, seasoned salt, table salt, and sea salt. [facility] sauce. Tartar sauce. Barbecue sauce. Teriyaki sauce. Soy sauce, including reduced-sodium. Steak sauce. Canned and packaged gravies. Fish sauce. Oyster sauce. Cocktail sauce. Store-bought horseradish. Ketchup. Mustard. Meat flavorings and tenderizers. Bouillon cubes. Hot sauces. Pre-made or packaged marinades. Pre-made or packaged taco seasonings. Relishes. Regular salad dressings. Other foods Salted popcorn and pretzels. The items listed above may not be a complete list of foods and beverages you should avoid. Contact a dietitian for more information. Where to find more information National Heart, Lung, and Blood [place]: www.nhlbi.nih.gov [place] Heart Association: www.heart.org Academy of Nutrition and Dietetics: www.eatright.org National Kidney Foundation: www.kidney.org Summary The DASH eating plan is a healthy eating plan that has been shown to reduce high blood pressure (hypertension). It may also reduce your risk for type 2 diabetes, heart disease, and stroke. When on the DASH eating plan, aim to eat more fresh fruits and vegetables, whole grains, lean proteins, low-fat dairy, and heart-healthy fats. With the DASH eating plan, you should limit salt (sodium) intake to 2,300 mg a day. If you have hypertension, you may need to reduce your sodium intake to 1,500 mg a day. Work with your health care provider or dietitian to adjust your eating plan to your individual calorie needs. This information is not intended to replace advice given to you by your health care provider. Make sure you discuss any questions you have with your health care provider. Document Revised: 07/10/2020 Document Reviewed: 07/10/2020 Generic Media Patient Education 2022 [employer]. 10/23/2023 07:12:01 BMI for Adults BMI for Adults What is BMI? Body mass index (BMI) is a number that is calculated from a person's weight and height. BMI can help estimate how much of a person's weight is composed of fat. BMI does not measure body fat directly. Rather, it is an alternative to procedures that directly measure body fat, which can be difficult and expensive. BMI can help identify people who may be at higher risk for certain medical problems. What are BMI measurements used for? BMI is used as a screening tool to identify possible weight problems. It helps determine whether a person is obese, overweight, a healthy weight, or underweight. BMI is useful for: Identifying a weight problem that may be related to a medical condition or may increase the risk for medical problems. Promoting changes, such as changes in diet and exercise, to help reach a healthy weight. BMI screening can be repeated to see if these changes are working. How is BMI calculated? BMI involves measuring your weight in relation to your height. Both height and weight are measured, and the BMI is calculated from those numbers. This can be done either in [place] ([place] or metric measurements. Note that charts and online BMI calculators are available to help you find your BMI quickly and easily without having to do these calculations yourself. To calculate your BMI in [place] ([place] measurements: 1.Measure your weight in pounds (lb). 2.Multiply the number of pounds by 703. For example, for a person who weighs 180 lb, multiply that number by 703, which equals 126,540. 3.Measure your height in inches. Then multiply that number by itself to get a measurement called inches squared. For example, for a person who is 70 inches tall, the inches squared measurement is 70 inches x 70 inches, which equals 4,900 inches squared. 4.Divide the total from step 2 (number of lb x 703) by the total from step 3 (inches squared): 126,540 4,900 = 25.8. This is your BMI. To calculate your BMI in metric measurements: 1.Measure your weight in kilograms (kg). 2.Measure your height in meters (m). Then multiply that number by itself to get a measurement called meters squared. For example, for a person who is 1.75 m tall, the meters squared measurement is 1.75 m x 1.75 m, which is equal to 3.1 meters squared. 3.Divide the number of kilograms (your weight) by the meters squared number. In this example: 70 3.1 = 22.6. This is your BMI. What do the results mean? BMI charts are used to identify whether you are underweight, normal weight, overweight, or obese. The following guidelines will be used: Underweight: BMI less than 18.5. Normal weight: BMI between 18.5 and 24.9. Overweight: BMI between 25 and 29.9. Obese: BMI of 30 or above. Keep these notes in mind: Weight includes both fat and muscle, so someone with a muscular build, such as an athlete, may have a BMI that is higher than 24.9. In cases like these, BMI is not an accurate measure of body fat. To determine if excess body fat is the cause of a BMI of 25 or higher, further assessments may need to be done by a health care provider. BMI is usually interpreted in the same way for men and women. Where to find more information For more information about BMI, including tools to quickly calculate your BMI, go to these websites: Centers for Disease Control and Prevention: www.cdc.gov [place] Heart Association: www.heart.org National Heart, Lung, and Blood [place]: www.nhlbi.nih.gov Summary Body mass index (BMI) is a number that is calculated from a person's weight and height. BMI may help estimate how much of a person's weight is composed of fat. BMI can help identify those who may be at higher risk for certain medical problems. BMI can be measured using [place]ic measurements or metric measurements. BMI charts are used to identify whether you are underweight, normal weight, overweight, or obese. This information is not intended to replace advice given to you by your health care provider. Make sure you discuss any questions you have with your health care provider. Document Revised: 04/29/2020 Document Reviewed: 03/06/2020 Generic Media Patient Education 2022 [employer]. Follow Up Care 10/05/2023 13:41:34 With:Lynnette Dean CNP Address: When:Within 2 Week(s) Comments:review labs and symptomszzz time [facility] [place] 01-20-2023 Hospital Discharg e instructions Patient Education 01/20/2023 00:17:11 Abdominal Pain, Adult Abdominal Pain, Adult Pain in the abdomen (abdominal pain) can be caused by many things. Often, abdominal pain is not serious and it gets better with no treatment or by being treated at home. However, sometimes abdominal pain is serious. Your health care provider will ask questions about your medical history and do a physical exam to try to determine the cause of your abdominal pain. Follow these instructions at home: Medicines Take hpvr-avc-zqljbmc and prescription medicines only as told by your health care provider. Do not take a laxative unless told by your health care provider. General instructions Watch your condition for any changes. Drink enough fluid to keep your urine pale yellow. Keep all follow-up visits as told by your health care provider. This is important. Contact a health care provider if: Your abdominal pain changes or gets worse. You are not hungry or you lose weight without trying. You are constipated or have diarrhea for more than 2 3 days. You have pain when you urinate or have a bowel movement. Your abdominal pain wakes you up at night. Your pain gets worse with meals, after eating, or with certain foods. You are vomiting and cannot keep anything down. You have a fever. You have blood in your urine. Get help right away if: Your pain does not go away as soon as your health care provider told you to expect. You cannot stop vomiting. Your pain is only in areas of the abdomen, such as the right side or the left lower portion of the abdomen. Pain on the right side could be caused by appendicitis. You have bloody or black stools, or stools that look like tar. You have severe pain, cramping, or bloating in your abdomen. You have signs of dehydration, such as: ?Dark urine, very little urine, or no urine. ?Cracked lips. ?Dry mouth. ?Sunken eyes. ?Sleepiness. ?Weakness. You have trouble breathing or chest pain. Summary Often, abdominal pain is not serious and it gets better with no treatment or by being treated at home. However, sometimes abdominal pain is serious. Watch your condition for any changes. Take qewc-ktb-gqetoqd and prescription medicines only as told by your health care provider. Contact a health care provider if your abdominal pain changes or gets worse. Get help right away if you have severe pain, cramping, or bloating in your abdomen. This information is not intended to replace advice given to you by your health care provider. Make sure you discuss any questions you have with your health care provider. Document Revised: 09/25/2020 Document Reviewed: 12/16/2019 Generic Media Patient Education 2022 [employer]. Follow Up Care 01/19/2023 21:40:35 With:Felicia Mullins Address: [address] [place] [address], [place] [phone] Business (1) When:01/23/2023 [facility] 01-19-2023 Evaluation + Plan note Extrac geovany from: Title:ED Note Author:Amrik Pete DO Date :01/19/23 AP (abdominal pain) (R10.9: Unspecified abdominal pain) Orders: dicyclomine, 10 mg = 1 cap(s), Oral, QID, PRN Irritable bowel symptoms, X 7 day(s), # 28 cap(s), Refills(s) 0, Pharmacy: [id number], 162.6, cm, 01/19/23 21:48:00 EDT, Height/Length Dosing, 75, kg, 01/19/23 21:48:00 EDT, Weight Dosing dicyclomine, 10 mg = 1 cap(s), Cap, Oral, Once, Stop date 01/20/23 0:01:00 EDT, STAT, Start date 01/20/23 0:01:00 EDT, 01/20/23 0:01:00 EDT ketorolac, 15 mg = 1 mL, Injection, IV Push, Once, Stop date 01/19/23 22:52:00 EDT, STAT, Start date 01/19/23 22:52:00 EDT, 01/19/23 22:52:00 EDT morphine, 4 mg = 2 mL, Injection, IV Push, Once, Stop date 01/19/23 23:21:00 EDT, STAT, Start date 01/19/23 23:21:00 EDT, 01/19/23 23:21:00 EDT naproxen, 500 mg = 1 tab(s), Oral, BID, PRN Pain, # 14 tab(s), Refills(s) 0, Pharmacy: [id number], 162.6, cm, 01/19/23 21:48:00 EDT, Height/Length Dosing, 75, kg, 01/19/23 21:48:00 EDT, Weight Dosing ondansetron, 4 mg = 2 mL, Injection, IV Push, Once, Stop date 01/19/23 21:51:00 EDT, STAT, Start date 01/19/23 21:51:00 EDT, 01/19/23 21:51:00 EDT ondansetron, 4 mg = 1 tab(s), Oral, q8hr, PRN Nausea/Vomiting, # 16 tab(s), Refills(s) 0, Pharmacy: [id number], 162.6, cm, 01/19/23 21:48:00 EDT, Height/Length Dosing, 75, kg, 01/19/23 21:48:00 EDT, Weight Dosing Sodium Chloride 0.9% intravenous solution, 1,000 mL, Soln-IV, IV, Once, Stop date 01/19/23 21:51:00 EDT, STAT, Start date 01/19/23 21:51:00 EDT, Infuse over 61, minute(s) Automated Diff Basic Metabolic Panel Beta hCG Qual CBC w/ Auto Diff CT Abdomen/Pelvis w/ Contrast eGFR Hepatic Function Panel Lipase Level Saline Lock Insert UA With Cult Reflex [facility]01-19-2023 NoteOPERATIVE NOTE OPERATION DATE: 09/08/2022 PROCEDURE: Da Dc assisted laparoscopic bilateral salpingectomy. PREOPERATIVE DIAGNOSIS: Multiparity, desires permanent sterilization. POSTOPERATIVE DIAGNOSIS: Multiparity, desires permanent sterilization. ANESTHESIA: General. SURGEON: Cherie Olivia D.O. CERTIFIED MEDICAL TECHNICIAN: ITALIA Burks URINE OUTPUT: Yellow and clear. BLOOD LOSS: 5 mL. FINDING: Normal appearing ovaries, uterus and tubes. SPECIMEN: Bilateral tubes. PROCEDURE: The patient was taken back to the OR where she was prepped and draped in the normal sterile fashion after being placed in the dorsal lithotomy position. after being placed under general anesthesia without difficulty, a wet sponge stick was placed into the patient's vagina. Attention was then turned to the patient's abdomen, where a scalpel was used to make a small infraumbilical incision. The S retractors were then used to dissect the underlying layers until the fascia could be seen. The fascia was then grasped with Arielle clamps and tented up. A knife was then used to make a small incision to the fascia. The muscle was identified, at that time two sutures of #0 Vicryl on a GI needle was then used and placed through the fascia. The peritoneum was then identified and entered bluntly. The 10-4 Blanka was then placed into the patient's abdomen. This was confirmed with direct visualization of the bowel, using the laparoscope. The patient's abdomen was then insufflated using approximately 4 liters of CO2 gas. Survey of the patient's abdomen demonstrated normal appearing ovaries, uterus and tubes. A second and third lateral port, which was 7-8 in size and 5 mm in size, was then placed laterally after incision was made in the skin under direct visualization. The patient's tube on the patient's right side was identified. The tube was then tented up using a grasper. The LigaSure was used to transect and coagulate the mesosalpinx from the fimbriated end to the insertion at the uterus; the tube was amputated and removed in its entirety. Excellent hemostasis was noted. This was performed on the contralateral side as well. The lateral ports were then removed under direct visualization with excellent hemostasis. The abdomen was desufflated. All instruments were removed from the patient's abdomen. The fascia was closed using the #0 Vicryl on GI needle. The skin was closed using 4- 0 Vicryl subcuticularly. All instruments were removed from the patient's vagina as well. The patient was taken out of the dorsal lithotomy position and placed in the supine position and taken to recovery in stable condition. Sponge, lap and needle counts were correct x2.[id number] Evaluation + Plan note Diagnostic Tests Pending * PAP [id number] [facility]04/22 [facility] No data available for this section [facility] Future Appointments Appointment Date:11/13/2023 09:00:00 AM Scheduled Provider:Lynnette Dean CNP Location:[facility] Appointment Type:[facility] Evaluation + Plan note Future Appointments Appointment Date:11/13/2023 09:00:00 AM Scheduled Provider:Lynnette Dean CNP Location:[facility] Appointment Type:[facility] Diagnostic Tests Pending * Cortisol 10/23/23 * DHEA 10/23/23 [facility] Future Appointments Appointment Date:12/14/2023 08:00:00 AM Scheduled Provider:Lynnette Dean CNP Location:[facility] Appointment Type:[facility] Evaluation + Plan note Future Appointments Appointment Date:01/19/2024 07:40:00 AM Scheduled Provider:Lynnette Dean CNP Location:[facility] Appointment Type:[facility] Evaluation + Plan note Future Appointments Appointment Date:02/19/2024 08:00:00 AM Scheduled Provider:Lynnette Dean CNP Location:[facility] Appointment Type:[facility] [place] Evaluation + Plan note Future Appointments Appointment Date:04/01/2024 02:00:00 PM Scheduled Provider:Lynnette Dean CNP Location:[facility] Appointment Type:[facility] Evaluation + Plan note Future Appointments Appointment Date:07/04/2024 10:40:00 AM Scheduled Provider:Lynnette Dean CNP Location:[facility] Appointment Type:[facility] Evaluation + Plan note Future Appointments Appointment Date:10/04/2024 09:20:00 AM Scheduled Provider:Lynnette Dean CNP Location:[facility] Appointment Type:[facility] Hospital Discharge instructions No data available for this section [facility] No data available for this section [facility] Summary Purpose Family History No Family History Records Found No data available for this section No data available for this section No data available for this section No data available for this section No Family History Records Found No data available for this section No data available for this section No data available for this section No data available for this section No Family History Records Found Advance Directives No Advanced Directives Records FoundNo Advanced Directives Records FoundNo Advanced Directives Records Found Additional Source Comments Patient Care team informatio n (unrecognized section and content) Personnel Name: KIM GUERRERO Address: Address: [address] [place] [id number] Name: Mary Carmen ANDERSON Address: Address: [address] [place] [address], [facility] [address] Personnel Name: NONE, XXXX Address: Address: [place] [facility] Name: [facility] Address: Address: [address] [place] [address], [facility] [place] [id number] Personnel Name: Lynnette Dean CNP Address: Address: [address] [place] [address] Name: Mary Carmen ANDERSON Address: Address: [facility] [address] [place] [address]- Personnel Name: Lynnette Dean CNP Address: Address: [address] [place] [phone]- Name: Mary Carmen ANDERSON Address: Address: [facility] [address] [place] [phone]- Personnel Name: Lynnette Dean CNP Address: Address: [address] [place] [phone]- Name: Mary Carmen ANDERSON Address: Address: [facility] [address] [place] [address] [place] [phone]- Personnel Name: Lynnette Dean CNP Address: Address: [address] [place] [address]- Name: Mary Carmen ANDERSON Address: Address: [facility] [address] [place] [address] [place] [address]- Personnel Name: Lynnette Dean CNP Address: Address: [address] [place], [place] [id number]- Name: Mary Carmen ANDERSON Address: Address: [facility] [address] [address]- Personnel Name: Lynnette Dean CNP Address: Address: [address] [place] [phone]- Name: Mary Carmen ANDERSON Address: Address: [facility] [address] [place] [address] [place] [address]- Personnel Name: Lynnette Dean CNP Address: Address: [address] [place] [address]- Name: Mary Carmen ANDERSON Address: Address: [facility] [address] [place] [address] [place] [phone]- Personnel Name: Lynnette Dean CNP Address: Address: [address] [place] [phone]- Name: Mary Carmen ANDERSON Address: Address: [facility] [address] [place] [address] [place] [phone]- INFORMATION SOURCE (unrecogn ized section and content) DATE CREATED AUTHOR 09/13/2022 [facility] DATE CREATED AUTHOR AUTHOR'S ORGANIZ ATION 01/05/2024 [facility] DATE CREATED AUTHOR AUTHOR'S ORGANIZ ATION 07/06/2024 [facility] FOR RECORDS PERTAINING TO PATIENTS WHO ARE OR HAVE BEEN ENROLLED IN A CHEMICAL DEPENDENCY/SUBSTANCEABUSE PROGRAM, SOME INFORMATION MAY BE OMITTED. This clinical summary was aggregated from multiple sources. Caution should be exercised in using it in the provision of clinical care. This summary normalizes information from multiple sources, and as a consequence, information in this document may materially change the coding, format and clinical context of patient data. In addition, data may be omitted in some cases. CLINICAL DECISIONS SHOULD BE BASED ON THE PRIMARY CLINICAL RECORDS. [employer] provides no warranty or guarantee of the accuracy or completeness of information in this document.
[2024-09-18 10:08] LABS: Age Gdln ACOG Testing Note (.); HPV Aptima Negative (Negative); IGP, Aptima HPV, rfx 16/18,45 Note (.)
== END 2024-09-12 18:48 | disposition home or self-care (01) ==
LOC: LAB 18:47
PROVIDERS: Visit Provider Physician Assistant
DX: Z01.419 Encounter for gynecological examination (general) (routine) without abnormal findings (principal)
CPT/HCPCS: 87624; 88175